=== PATIENT | male | born 1930 | race African-American/Black ===

== ENCOUNTER 2016-10-15 15:33 | Inpatient (IN) ==
[2016-10-15] MEDS ORDERED: FUROSEMIDE 100 MG/10 ML VIAL IV STA (15:49)
[2016-10-15] MEDS ORDERED: NITROGLYCERIN 2% OINT 1 INCH/GM PACK TOP STA (15:49)
[2016-10-15] MEDS ORDERED: ONDANSETRON 4 MG/2 ML VIAL IV STA (15:49)
[2016-10-15] MEDS ORDERED: MORPHINE 2 MG/1 ML SYRINGE IV STA (15:49)
[2016-10-15] MEDS ORDERED: ASPIRIN 325 MG TABLET PO STA (15:49)
[2016-10-15] MEDS ORDERED: methylPREDNISolone SOD SUC 125 MG/2 ML VIAL IV STA (15:49)
[2016-10-15] MEDS ORDERED: hydrALAZINE 20 MG/1 ML VIAL IV STA (15:49)
[2016-10-15] MEDS ORDERED: ALBUTEROL 2.5 MG/3 ML NEB RESP TX SCH (16:00)
[2016-10-15] MEDS ORDERED: ONDANSETRON 4 MG/2 ML VIAL ONE (16:01)
[2016-10-15] MEDS ORDERED: NITROGLYCERIN 2% OINT 1 INCH/GM PACK TOP ONE (16:01)
[2016-10-15] MEDS ORDERED: hydrALAZINE 20 MG/1 ML VIAL ONE ×2 (16:01→16:37)
[2016-10-15] MEDS ORDERED: FUROSEMIDE 40 MG/4 ML VIAL ONE (16:01)
[2016-10-15] MEDS ORDERED: MORPHINE 2 MG/1 ML SYRINGE ONE (16:02)
[2016-10-15] MEDS ORDERED: ASPIRIN 325 MG TABLET ONE (16:02)
[2016-10-15] MEDS ORDERED: methylPREDNISolone SOD SUC 125 MG/2 ML VIAL ONE (16:02)
[2016-10-15] MEDS ORDERED: FUROSEMIDE 20 MG/2 ML VIAL ONE (16:02)
[2016-10-15 16:09] LABS: Basophils % 0.6 % (0.0-0.8); Eosinophils # 0.1 10*3/uL (0.0-0.87); Eosinophils % 2.5 % (0.00-10.9); Hemoglobin 14.2 GM/DL (14.0-18.0); Immature Granulocytes % 0.2 %; Immature Granulocytes Absolute 0.01 #; Lymphocytes # 1.6 10*3/uL (1.4-4.0); Mean Corpuscular Hemoglobin 31 PG (27-34); Mean Corpuscular Volume 92.3 FL (87-102); Mean Platelet Volume 10.5 FL (9.6-12.0); Monocytes # 0.6 10*3/uL (0.11-0.8); Monocytes % 12.3 % (1.7-12.7); Neutrophils # 2.5 10*3/uL (1.4-7.4); Neutrophils % 51.4 % (38.7-73.9); Platelet Count 180 10*3/uL (130-400); Red Blood Count 4.66 10*6/uL (3.8-5.5); Red Cell Distribution Width 14.2 % (9.3-17.3); White Blood Count 4.9 10*3/uL (4.5-13.71)
--- NOTE | 2016-10-15 16:09 | XRay Report ---
Exam: XR chest 1V portable Date: 10/15/2016 3:49 PM Indication: Shortness of breath Comparison: 09/11/2016 Technical:AP portable Findings: Patchy interstitial infiltrates are present in the right base. Cardiomegaly is present. ASVD is present. External cardiac leads are present. The mediastinum is otherwise intact Impression: 1. Cardiomegaly 2. Interstitial edema and tiny effusions that suggest component of mild CHF. Pneumonic infiltrate cannot be totally excluded this is slightly asymmetric right greater than left PROCEDURE INTERPRETED AT [facility]PARTMENT OF RADIOLOG[facility] Final Report Signed by: Dr. Alfonzo Leblanc
--- NOTE | 2016-10-15 16:09 | Emergency Department Note ---
Yasmin Patricia Brittany, am scribing for, and in the presence of, Dakotah Lipscomb MD 15:58. Deisi Patricia Charles R, MD, personally performed the services described in this documentation, ascribed by Camilla Hoffman in my presence, and it is both accurate and complete 609 . Arrival - Arrival Chief Complaint: Shortness of Breath Stated Complaint: SOB Mode of Arrival: Stretcher Source: Patient - History of Present Illness HPI Narrative: This is an 86 y/o black male,who presents to the ED by EMS with c/o dyspnea which started 3 days ago. He states he had an AL 2 weeks ago. He denies any chest pain today but does report he had CP when he had the AL. He states he is unable to lay down due to orthopnea. Pt states after being placed on Bi-Pap machine in the ED his breathing has now gotten better. Pt has no other complains /pain in the ED at this time. Pt has a PMHx of seizures, HTN, cardiovascular problems, COPD, and asthma. Pt denies a surgical Hx. Pt denies a family medical Hx. Pt denies a social Hx. Onset (ago): day(s) (Started 3 days ago) Consistency: constant Severity: moderate Allergies/Adverse Reactions: Allergies Allergy/AdvReac Type Severity Reaction Status Date / Time No Known Allergies Allergy Verified 04/23/15 13:07 Home Medications: Home Medications Medication Instructions Recorded Confirmed Type Albuterol Sulfate [Ventolin HFA] 2 puff INH Q6HR 04/23/15 08/31/16 History Tiotropium Inhalation [Spiriva 18 mcg INH DAILY 04/23/15 08/31/16 History Handihaler] Aspirin EC Tab 81 mg PO DAILY #30 tablet 09/02/16 Rx Atorvastatin [Lipitor] 80 mg PO BEDTIME #30 tablet 09/02/16 Rx Carvedilol [Coreg] 6.25 mg PO BID #30 tablet 09/02/16 Rx Nitroglycerin Sl Tab [Nitrostat] 0.4 mg SL Q5M PRN #100 tablet 09/02/16 Rx Ticagrelor [Brilinta] 90 mg PO BID #60 tablet 09/02/16 Rx Review of System - Review of System Cardiovascular: Present: dyspnea on exertion, orthopnea. Absent: chest pain Medical,Surgical,& Family Hx - Medical History Cardio: History of: Hypertension (states takes two different BP meds but doesn' t know the name of the other o), AL, Cardiovascular Problems Neurology: History of: Seizures ("years ago") Respiratory: History of: Asthma, COPD (Smoker) No history of: Obstructive Sleep Apnea Gastrointestinal: History of: Gastrointestinal Cancer - Social History Smoking Status: Current every day smoker Frequency of Alcohol Use: Unknown Type of Drug Use: Unknown Exam Vital Signs: Vital Signs Temperature 97.2 F L 10/15/16 15:35 Pulse Rate 71 10/15/16 17:07 Respiratory Rate 30 H 10/15/16 17:07 Blood Pressure 213/127 10/15/16 15:35 O2 Sat by Pulse Oximetry 100 10/15/16 16:10 - General General appearance: alert, in distress (Mild Distress) - Head Head exam: Present: atraumatic, normocephalic, normal inspection - Eye Eye exam: Present: normal appearance, PERRL, EOMI - ENT ENT exam: Present: normal exam, normal oropharynx, mucous membranes moist - Neck Neck exam: Present: normal inspection, full ROM, trachea midline. Absent: tenderness - Chest Chest inspection: Present: symmetric chest wall rise, other ([place] chest) - Respiratory Respiratory exam: Present: accessory muscle use, rales (Bilateral ), wheezes ( Bilateral ), other (Decreased Breath sounds) - Cardiovascular Cardiovascular exam: Present: tachycardia - Abdominal Exam Abdominal exam: Present: soft. Absent: distention, tenderness, guarding, rebound, rigidity - Extremities Exam Extremities exam: Present: normal capillary refill, pedal edema (+1 pedal edema) - Back Exam Back exam: Present: normal inspection, full ROM. Absent: tenderness, muscle spasm, rashes - Neurological Exam Neurological exam: Present: alert, oriented X3, CN II-XII intact - Psychiatric Psychiatric exam: Present: normal affect, normal mood. Absent: agitated, anxious - Skin Skin exam: Present: warm, intact, normal color. Absent: diaphoresis Course - Reevaluation(s) Reevaluation #1: Patient has come down after using IV hydralazine IV nitroglycerin and Nitropaste and cardiac effusion. We made decision take the patient to the CT scanner check for PE based on his symptomatology. Patient also has external pacemaker pads on because of his episodic runs of bradycardia is also sinus rhythm there is no clear ST elevation is seen and patient continues to report no chest pain Time: 16:50 - Consultations Consultation #1: Spoke to Dr. Simon he told me to call Dr. Steen, the radius she's in come see patient patient has of EKG that was done that showed ST changes. 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 patient currently has no having any chest pain just shortness of breath Time: 16:21 Results - Labs CBC & BMP: 10/15/16 15:51 10/15/16 15:51 Critical Care Time Critical Care Time: Yes Total Critical Care Time: 90 Disposition Clinical Impression: Peripheral vascular disease, Coronary artery disease, Pulmonary disease, Congestive heart failure, respiratory distress, Arrhythmia, Malignant hypertension, Acute exacerbation of chronic obstructive airways disease, Sick sinus syndrome Case discussed with: patient, patient's family Disposition: Still a Patient Condition: Critical Time of Disposition: 17:14
[2016-10-15 16:19] LABS: ABG Base Excess -2.9 MMOL/L (-2.5-2.5); ABG Oxygen Saturation 98.5 % (95-100); ABG PCO2 38.1 MM HG (35-48); ABG PH 7.369 (7.35-7.45); ABG TCO2 18.9 MMOL/L (23-27)
[2016-10-15] MEDS ORDERED: niCARdipine 25 MG/10 ML VIAL IV ONE (16:20)
[2016-10-15 16:21] LABS: INR 1.2; PT Patient Result 12.3 SECS
--- NOTE | 2016-10-15 16:23 | EKG Report ---
Stationary ECG Study [facility] ER Test Date: 10/15/2016 4:22:18 PM Pat Name: SUSI MASCORRO Department: Room: 123 Gender: M Edge Brusher: JASON Caba : 1930 Requested by: Dakotah Sutton Order Number: [id number] Reading MD: CARMEN MARIN Intervals [place] Rate: 105 P: 999 [place]: 0 QRS: -68 QRSD: 117 T: 105 QT: 356 QTc: 417 Interpretive Statements ATRIAL FIBRILLATION WITH RAPID VENTRICULAR RESPONSE LEFT ANTERIOR FASCICULAR BLOCK MINIMAL VOLTAGE CRITERIA FOR LVH, CONSIDER NORMAL VARIANT ANTEROLATERAL MYOCARDIAL INFARCTION, PROBABLY RECENT ACUTE [place] Electronically Signed On 10-16-16 09:56:29 HOSPITALITY HOST by CARMEN MARIN [id number]
[2016-10-15 16:29] LABS: D-Dimer 28.3 MG/L FEU
[2016-10-15] MEDS ORDERED: NITROGLYCERIN DRIP 50 MG/250 ML BOTTLE IV ONE (16:33)
[2016-10-15 16:45] LABS: Albumin 3.6 G/DL (3.4-5.0); Calcium 8.9 MG/DL (8.5-10.1); Magnesium 1.9 MG/DL (1.8-2.4); Osmolality,Calculated 289.1 MOS/KG (273-304); Potassium 4.3 MMOL/L (3.5-5.1); Total Protein 7.9 G/DL (6.4-8.3)
[2016-10-15 16:46] LABS: Troponin I Only 0.125 NG/ML (0.00-0.045)
[2016-10-15] MEDS ORDERED: HEPARIN 5,000 UNIT/1 ML VIAL IV STA (17:11)
[2016-10-15] MEDS ORDERED: HEPARIN DRIP 25,000 UNITS/500 ML PREMIX IV ONE (17:12)
--- NOTE | 2016-10-15 17:25 | CT Report ---
Exam: CT chest PE study Date: 10/15/2016 4:49 PM Indication: Shortness of breath fever Comparison: Routine chest Technical: Images were obtained from the thoracic inlet through the lung bases with 80 cc of Omnipaque 350 with axial and coronal imaging available for review.3-D CTA MIP images were obtained coronally. Dose reduction was performed with decreasing kv and mA and automated exposure Findings: Thyroid gland trachea and esophagus are otherwise unremarkable. Mild cardiomegaly present. ASVD is present. The pulmonary outflow tract, left and right proximal pulmonary arteries, first-order, second-order and third order branches reveal no evidence of pulmonary thromboemboli. The lungs are demonstrated with bilateral pleural effusions and atelectatic change present. Mild groundglass type alveolar density suggesting a component of cardiac decompensation pulmonary edema right greater than left. The mediastinum and bony structures are intact. Liver spleen are unremarkable. Stomach is incompletely distended. Previous cholecystectomy suspected. Adrenal glands are intact. The kidneys reveal small calculus in the posterior left kidney measure approximately 2 mm. The right kidney is unremarkable. Impression: 1. No evidence of pulmonary thromboemboli. 2. Bilateral pleural effusions and alveolar edema is consistent with a component of mild pulmonary edema 3. Previous cholecystectomy suspected. 4. Left nephrolithiasis without obstruction with tiny stone present PROCEDURE INTERPRETED AT [facility] DEPARTMENT OF RADIOLOGY Final Report Signed by: Dr. Alfonzo Leblanc
[2016-10-15] MEDS ORDERED: HEPARIN DRIP 25,000 UNITS/500 ML PREMIX IV SCH (17:30)
[2016-10-15 17:36] LABS: Apearance,Urine CLEAR (Clear); Bacteria,Urine Occasional /HPF (Few); Bilirubin,Urine Negative (Negative); Blood, Urine Small mg/dL (Negative); Glucose,Urine (UA) 50 mg/dL (Negative); Ketones,Urine Negative (Negative); Mucus,Urine Occasional /LPF (Occasional); Nitrite,Urine Negative (Negative); Protein,Urine Negative; RBC,Urine 2 /HPF (0-4); Squamous Epithelial Cell,Urine Occasional /HPF (0-10); Urine Color Colorless (Yellow); Urine Specific Gravity 1.004 (1.001-1.035); Urine Urobilinogen < 2.0 EU/DL (0.2-1.0); WBC,Urine 1 /HPF (0-6)
[2016-10-15] MEDS ORDERED: ONDANSETRON 4 MG/2 ML VIAL IV PRN (17:55)
[2016-10-15] MEDS ORDERED: guaiFENesin/DM ER 600-30 MG TABLET PO PRN (17:55)
[2016-10-15] MEDS ORDERED: MAGNESIUM SULF RIDER 4 GM in PREMIX 1 EACH IV PRN (17:55)
[2016-10-15] MEDS ORDERED: ACETAMINOPHEN 325 MG TABLET PO PRN (17:55)
[2016-10-15] MEDS ORDERED: ZALEPLON 5 MG CAPSULE PO PRN (17:55)
[2016-10-15] MEDS ORDERED: BISACODYL 5 MG TABLET PO PRN (17:55)
[2016-10-15] MEDS ORDERED: POTASSIUM CHLORIDE RIDER 10 MEQ in PREMIX 1 EACH IV PRN (17:55)
[2016-10-15] MEDS ORDERED: DOCUSATE SODIUM 100 MG CAPSULE PO PRN (17:55)
[2016-10-15] MEDS ORDERED: MAGNESIUM SULF RIDER 2 GM in PREMIX 1 EACH IV PRN (17:55)
--- NOTE | 2016-10-15 18:01 | EKG Report ---
Stationary ECG Study [facility] ER Test Date: 10/15/2016 4:24:11 PM Pat Name: SUSI MASCORRO Department: Room: 123 Gender: M American History Teacher: JASON Caba : 1930 Requested by: Dakotah Sutton Order Number: [id number] Santana MD: CARMEN MARIN Intervals [place] Rate: 51 P: 91 KS: 213 QRS: -71 QRSD: 124 T: 102 QT: 389 QTc: 366 Interpretive Statements SINUS BRADYCARDIA WITH MARKED SINUS ARRHYTHMIA WITH PROLONGED [place] INTERVAL LEFT ANTERIOR FASCICULAR BLOCK ANTEROLATERAL MYOCARDIAL INFARCTION, PROBABLY RECENT ACUTE [place] Electronically Signed On 10-16-16 09:56:41 MERCHANDISING DIRECTOR by CARMEN MARIN [id number]
[2016-10-15] MEDS ORDERED: NITROGLYCERIN DRIP 50 MG/250 ML BOTTLE IV SCH (19:00)
[2016-10-15] MEDS ORDERED: PNEUMOCOCCAL VACCINE (13 VALENT) 0.5 ML SYRINGE IM ONE (19:09)
[2016-10-15] MEDS ORDERED: hydrALAZINE 20 MG/1 ML VIAL IV ONE (19:48)
[2016-10-15 19:55] LABS: Troponin I Only 0.148 NG/ML (0.00-0.045)
[2016-10-15] MEDS ORDERED: niCARdipine INJ 25 MG in SODIUM CHLORIDE 0.9% 240 ML IV SCH (20:00)
[2016-10-15] MEDS ORDERED: NITROGLYCERIN SL 0.4 MG TABLET SL PRN (20:46)
--- NOTE | 2016-10-15 20:46 | Cardiology History & Physical ---
Dejah Patricia April RN, am scribing for, and in the presence of, Layla Steen MD 20:40. Assessment and Plan - Time spent with patient Time spent with patient: Greater than 30 minutes (1) SOB (shortness of breath) Status: Acute Assessment and plan: He presented with extreme shortness of breath. He reportedly had mild hypoxia out of the hospital, but continued to be in extremis even with 100% saturations on nonrebreather. Exam was consistent congestive heart failure and he was externally hypotensive. D-dimer was very elevated but CT scan of the chest only mild heart failure, no significant pulmonary embolism. Cardiac biomarkers remain low, and his ECG does not show any acute STEMI. He is denying any chest pain. He does not have symptoms or leukocytosis consistent with an infectious process. Has had some tachybradycardia arrhythmias but these have improved now that he is off of the Cardene. If these continue, be a source of his systems. We'll treat him for hypertensive urgency, cycle his cardiac biomarkers, anticoagulate him overnight, and continue to manage him expectantly. Current Visit: Yes (2) Coronary artery disease Status: Chronic Current Visit: Yes (3) Peripheral vascular disease Status: Chronic Current Visit: Yes (4) Hypertension Status: Chronic Current Visit: Yes History of Present Illness Chief complaint: shortness of breath History of present illness: The patient was evaluated in the emergency room emergently, and greater than 1 hour was spent at the patient's bedside administering care and stabilizing the patient. Mr. Gibson is a 86 year old black male with a history of CAD, HTN, PVD, and pulmonary disease. Patient is in respiratory distress so the majority of the information is being obtained from his record. Apparently, he had never really seen a typewriter assembly and parts inspector until August of 2016 when he presented to the ED with a STEMI. He was taken emergently to the laboratory administrative director by Dr. Steen where his first diagonal artery was stented. Presented to ED in respiratory distress. He was also experiencing tachy arrhythmias as well as sinus roberto carlos around [address] Steen was called to the bedside. His D-dimer was noted to be 28, troponins are pending. He was taken to CT, no obvious PE noted, mild CHF. He has been given IV Lasix, he is diuresing and is breathing better. Still orthopneic. Was given 4000u Heparin IV bolus and infusion initiated. Patient has been stabilized and is being transferred to unit. Will continue to cycle his cardiac biomarkers, manage his blood pressure and heart rate, and continue further diuresis. Further history was obtained from the patient when he was stabilized, and also discussion with multiple family members. The patient has not been expressing any chest pain. He had a 3 day prodrome of progressive shortness of breath until he becomes short of breath today. He has not had fevers. They report good medication compliance. He doesn't check his blood pressure at home. He was not having lower extremity edema. Home Medications Medication Instructions Recorded Confirmed Type Albuterol Sulfate [Ventolin HFA] 2 puff INH Q6HR 04/23/15 10/15/16 History Tiotropium Inhalation [Spiriva 18 mcg INH DAILY 04/23/15 10/15/16 History Handihaler] Aspirin EC Tab 81 mg PO DAILY #30 tablet 09/02/16 10/15/16 Rx Nitroglycerin Sl Tab [Nitrostat] 0.4 mg SL Q5M PRN #100 tablet 09/02/16 Rx Ticagrelor [Brilinta] 90 mg PO BID #60 tablet 09/02/16 10/15/16 Rx Atorvastatin [Lipitor] 40 mg PO BEDTIME 10/15/16 10/15/16 History Carvedilol [Coreg] 12.5 mg PO BID 10/15/16 10/15/16 History Allergies Allergy/AdvReac Type Severity Reaction Status Date / Time No Known Allergies Allergy Verified 04/23/15 13:07 ROS unobtainable: other (unable to obtain due to his respiratory status) Medical,Surgical,& Family Hx - Medical History Cardio: History of: CAD, Hypertension (states takes two different BP meds but doesn't know the name of the other o), SD, PVD, Cardiovascular Problems Neurology: History of: Seizures ("years ago") Respiratory: History of: Asthma, COPD (Smoker) Gastrointestinal: History of: Gastrointestinal Cancer - Surgical History Cardiac Surgeries: Sugical HX of: Cardiac Catheterization (with stent to first diagonal august 2016) - Social History Smoking Status: Current every day smoker Frequency of Alcohol Use: Unknown Type of Drug Use: Unknown Cardiology Physical Exam - Constitutional Vitals: Vital Signs Temp Pulse Resp BP Pulse Ox 97.2 F L 87 20 213/127 99 01/25/17 15:35 10/15/16 15:35 10/15/16 15:35 10/15/16 15:35 10/15/16 15:35 Intake and Output 10/15/16 10/15/16 10/15/16 06:59 14:59 22:59 Other: Weight 162 lb Patient Weight 10/16/16 06:59 Weight 162 lb Result/EKG - Labs CBC & BMP: 10/15/16 15:51 10/15/16 15:51 Labs: Laboratory Results - last 24 hr 10/15/16 10/15/16 10/15/16 15:49 15:51 15:51 WBC 4.9 RBC 4.66 Hgb 14.2 Hct 43.0 MCV 92.3 MCH 31 MCHC 33.0 RDW 14.2 Plt Count 180 MPV 10.5 Neut % (Auto) 51.4 Lymph % (Auto) 33.0 Eagle % (Auto) 12.3 Eos % (Auto) 2.5 Baso % (Auto) 0.6 Neut # (Auto) 2.5 Lymph # (Auto) 1.6 Eagle # (Auto) 0.6 Eos # (Auto) 0.1 Baso # (Auto) 0.0 Immature Gran % 0.2 Nucleated RBC % 0.0 Immature Gran # 0.01 Nucleated RBCs # 0.00 INR 1.2 PT Patient/Control Mix 12.3 D-Dimer, Quantitative 28.3 ABG pH 7.369 ABG pCO2 38.1 ABG pO2 126.0 H ABG HCO3 22.0 ABG Total CO2 18.9 L ABG O2 Saturation 98.5 ABG Base Excess -2.9 L Sodium Potassium Chloride Carbon Dioxide Anion Gap BUN Creatinine GFR Calculation BUN/Creatinine Ratio Glucose Calculated Osmolality Calcium Magnesium Total Bilirubin AST ALT Alkaline Phosphatase Troponin I B-Natriuretic Peptide Total Protein Albumin Globulin Albumin/Globulin Ratio 10/15/16 10/15/16 15:51 15:51 WBC RBC Hgb Hct MCV MCH MCHC RDW Plt Count MPV Neut % (Auto) Lymph % (Auto) Eagle % (Auto) Eos % (Auto) Baso % (Auto) Neut # (Auto) Lymph # (Auto) Eagle # (Auto) Eos # (Auto) Baso # (Auto) Immature Gran % Nucleated RBC % Immature Gran # Nucleated RBCs # INR PT Patient/Control Mix D-Dimer, Quantitative ABG pH ABG pCO2 ABG pO2 ABG HCO3 ABG Total CO2 ABG O2 Saturation ABG Base Excess Sodium 142 Potassium 4.3 Chloride 109 H Carbon Dioxide 20 L Anion Gap 17.3 H BUN 20 H Creatinine 1.60 H GFR Calculation 48 BUN/Creatinine Ratio 12.00 Glucose 177 H Calculated Osmolality 289.1 Calcium 8.9 Magnesium 1.9 Total Bilirubin 1.00 AST 29 ALT 32 Alkaline Phosphatase 117 Troponin I 0.125 H B-Natriuretic Peptide 2105 H Total Protein 7.9 Albumin 3.6 Globulin 4.3 H Albumin/Globulin Ratio 0.8 L Quality Measures - Stroke Onset of Symptoms Date: 10/12/16 Enio Patricia Jennifer, MD, personally performed the services described in this documentation, ascribed by Анна Pond RN in my presence, and it is both accurate and complete 046 .
[2016-10-15] MEDS ORDERED: FUROSEMIDE 40 MG/4 ML VIAL IV ONE (20:48)
[2016-10-15] MEDS ORDERED: ETOMIDATE 20 MG/10 ML VIAL IV ONE (21:12)
[2016-10-15] MEDS ORDERED: SUCCINYLCHOLINE 200 MG/10 ML VIAL ONE (21:12)
--- NOTE | 2016-10-15 21:55 | ECHO Report ---
Neftali Gibson 10/15/2016 Exam Date: 17:20 Referring Physician: Diana Morales Technologist: FATOUMATA Age: 86 Ht (in): Wt (lb): MExam Location: [facility] Gender: Echo [id number]: Shortness of breath, Suspected PEIndications: BP: / HR: SinusRhythm: PoorTechnical Quality: IMPRESSIONS Normal LV systolic function without regional wall motion abnormality, ejection fraction 55%. Grade 1/4 diastolic dysfunction (impaired relaxation). Mild concentric left ventricular hypertrophy. Mild biatrial enlargement. Mild mitral and tricuspid regurgitation. Pulmonary hypertension with pulmonary pressure estimated at 52 mmHg. Aortic sclerosis without stenosis. MEASUREMENTS (Male / Female) Normal Values 2D ECHO LV Diastolic Diameter PLAX 4.8 cm 4.2 - 5.9 / 3.9 - 5.3 cm LV Systolic Diameter PLAX 3.2 cm LV Fractional Shortening PLAX 33.7 % IVS Diastolic Thickness 1.2 cm 0.6 - 1.0 / 0.6 - 0.9 cm LVPW Diastolic Thickness 1.2 cm 0.6 - 1.0 / 0.6 - 0.9 cm RV Internal Dim ED PLAX 2.3 cm Aortic Root Diameter 2.9 cm LA Systolic Diameter LX 4.7 cm 3.0 - 4.0 / 2.7 - 3.8 cm DOPPLER TR Peak Velocity 324.0 cm/s TR Peak Gradient 42.0 mmHg FINDINGS Left Ventricle Normal left ventricular cavity size. Mild left ventricular hypertrophy. Left ventricular ejection fraction is estimated at 55 %. Right Ventricle The right ventricle is normal in size and function. Right Atrium The right atrium is mildly enlarged. Left Atrium Mild atrial enlargement in apical view (elongated LA). Mitral Valve Thickened mitral valve. Mild mitral valve regurgitation. Aortic Valve Aortic valve sclerosis without stenosis or regurgitation. Tricuspid Valve Morphologically normal tricuspid valve. Trace to mild tricuspid valve regurgitation. Tricuspid regurgitation velocities suggest a PAP of 52 mmHg. Pulmonic Valve Morphologically normal pulmonic valve without significant stenosis. There is no pulmonic regurgitation. Pericardium Normal pericardium without effusion. Aorta Normal ascending aorta dimension. Layla Steen MD (Electronically Signed) 15 October 2016 Final Date: 21:54
[2016-10-15] MEDS: ATORVASTATIN 40 MG TABLET PO SCH (22:19)
[2016-10-15] MEDS: TICAGRELOR 90 MG TABLET PO SCH (22:19)
[2016-10-15] MEDS: ACETYLCYSTEINE 600 MG CAPSULE PO SCH (22:19)
[2016-10-15] MEDS: hydrALAZINE 25 MG TABLET PO SCH (22:19)
[2016-10-16] MEDS: ALBUTEROL 2.5 MG/3 ML NEB RESP TX SCH ×2 (02:23→07:10)
[2016-10-16 05:20] LABS: Hematocrit 37.9 VOL% (42.0-52.0); Hemoglobin 12.8 GM/DL (14.0-18.0); Immature Granulocytes % 0.4 %; Immature Granulocytes Absolute 0.02 #; Lymphocytes # 0.5 10*3/uL (1.4-4.0); Mean Corpuscular HGB Conc 33.8 GM/DL (32-36); Mean Corpuscular Hemoglobin 30 PG (27-34); Mean Corpuscular Volume 88.3 FL (87-102); Mean Platelet Volume 10.3 FL (9.6-12.0); Monocytes # 0.1 10*3/uL (0.11-0.8); Monocytes % 1.6 % (1.7-12.7); Platelet Count 192 10*3/uL (130-400); Red Blood Count 4.29 10*6/uL (3.8-5.5); Red Cell Distribution Width 13.9 % (9.3-17.3); White Blood Count 5.6 10*3/uL (4.5-13.71)
--- NOTE | 2016-10-16 05:53 | EKG Report ---
Stationary ECG Study [facility] ER Test Date: 10/15/2016 5:15:25 PM Pat Name: SUSI MASCORRO Department: Room: 123 Gender: M Drafter Chief Design: : 1930 Requested by: Dakotah Sutton Order Number: [id number] Santana MD: CARMEN MARIN Intervals [place] Rate: 90 P: 999 [place]: 0 QRS: -75 QRSD: 116 T: 104 QT: 393 QTc: 441 Interpretive Statements ATRIAL FIBRILLATION INCOMPLETE RIGHT BUNDLE BRANCH BLOCK LEFT ANTERIOR FASCICULAR BLOCK ANTEROLATERAL MYOCARDIAL INFARCTION, PROBABLY RECENT ACUTE [place] Electronically Signed On 10-16-16 09:56:58 IMPROVEMENT COORDINATOR by CARMEN MARIN [id number]
[2016-10-16 06:01] LABS: Albumin 3.3 G/DL (3.4-5.0); Bilirubin,Total 1.5 MG/DL (0.2-1.0); Calcium 8.9 MG/DL (8.5-10.1); Osmolality,Calculated 290.1 MOS/KG (273-304); Risk Ratio 2.32; Thyroid Stimulating Hormone 0.749 uIU/ml (0.358-3.74); Total Protein 6.7 G/DL (6.4-8.3); VLDL CHOLESTEROL 7.6 MG/DL
[2016-10-16 06:05] LABS: Troponin I Only 0.185 NG/ML (0.00-0.045)
[2016-10-16] MEDS: IPRATROPIUM 500 MCG/2.5 ML NEB RESP TX SCH ×4 (07:10→19:09)
--- NOTE | 2016-10-16 07:46 | XRay Report ---
History short of breath Comparison 10/15/2016 The heart and vessels remain enlarged. There is slight improvement of prior vascular congestion and diffuse pulmonary edema. Mild interstitial edema remains without more focal consolidation Impression: Mild improvement with mild residual interstitial edema PROCEDURE INTERPRETED AT [facility] DEPARTMENT OF RADIOLOGY Final Report Signed by: Dr. Desiree Singh
[2016-10-16] MEDS: PANTOPRAZOLE 40 MG TABLET PO SCH (09:10)
[2016-10-16] MEDS: ACETYLCYSTEINE 600 MG CAPSULE PO SCH ×2 (09:10→20:33)
[2016-10-16] MEDS: TICAGRELOR 90 MG TABLET PO SCH ×2 (09:10→20:29)
[2016-10-16] MEDS: ASPIRIN EC 81 MG TABLET PO SCH (09:10)
[2016-10-16] MEDS: hydrALAZINE 25 MG TABLET PO SCH ×4 (09:10→20:29)
[2016-10-16] MEDS: FUROSEMIDE 40 MG/4 ML VIAL IV SCH (09:11)
--- NOTE | 2016-10-16 10:22 | EKG Report ---
Stationary ECG Study [facility] Test Date: 10/16/2016 10:21:41 AM Pat Name: SUSI MASCORRO Department: Room: 123 Gender: M Aerospace Quality Engineer: CAREY : 1930 Requested by: Leonor Noble Order Number: [id number] Reading MD: EFE ALNGLEY Intervals [place] Rate: 84 P: 999 [place]: 0 QRS: -76 QRSD: 118 T: 121 QT: 396 QTc: 437 Interpretive Statements ATRIAL FIBRILLATION INCOMPLETE RIGHT BUNDLE BRANCH BLOCK LEFT ANTERIOR FASCICULAR BLOCK ANTEROLATERAL MYOCARDIAL INFARCTION, PROBABLY RECENT ACUTE [place] Electronically Signed On 10-16-16 12:11:49 PHONE TRIAGE SPECIALIST by EFE LANGLEY [id number]
--- NOTE | 2016-10-16 15:12 | EKG Report ---
Stationary ECG Study [facility] ER Test Date: 10/15/2016 3:39:40 PM Pat Name: SUSI MASCORRO Department: Room: 123 Gender: M Sample Book Maker: : 1930 Requested by: Dakotah Sutton Order Number: [id number] Santana MD: CARMEN MARIN Intervals [place] Rate: 92 P: 44 KS: 127 QRS: -69 QRSD: 121 T: 102 QT: 355 QTc: 404 Interpretive Statements SINUS RHYTHM WITH OCCASIONAL SUPRAVENTRICULAR PREMATURE COMPLEXES LEFT ANTERIOR FASCICULAR BLOCK ANTEROLATERAL MYOCARDIAL INFARCTION, PROBABLY RECENT ACUTE [place] Electronically Signed On 10-16-16 09:55:38 CONTINUOUS PROCESS TANNER ROTARY DRUM by CARMEN MARIN [id number]
[2016-10-16] MEDS: ATORVASTATIN 40 MG TABLET PO SCH (20:29)
[2016-10-17] MEDS: IPRATROPIUM 500 MCG/2.5 ML NEB RESP TX SCH ×4 (07:27→21:38)
--- NOTE | 2016-10-17 10:10 | Physician Query Form ---
CLICK EDIT DOCUMENT TO SELECT QUERY ANSWER --> OK --> SIGN Aida Ahuja RN Clinical Hotel Controller W) [phone] (f) [phone] [email or web address] PROVIDERS: Make your selection(s) from the choices in EACH section by typing an "x" and enter comments in the comment section. Please use your independent medical judgment in providing your response. This request does not imply that any particular answer is desired or expected. CLINICAL INDICATORS: (Providers should not edit this section) Based on documentation of "CHF", HVN=[id number], Echo showed EF of 55%, treated with IV Lasix. Please provide further specificity regarding CHF. ACUITY: ( x) Acute ( ) Chronic ( ) Acute on Chronic ( ) Clinicallly unable to determine TYPE: ( ) Systolic ( x) Diastolic ( ) Combined Systolic/Diastolic ( ) Other, please specify: ( ) Clinically unable to determine ( ) The patient does NOT have CHF COMMENTS: Use of terms such as suspected, likely, or probable (associated with a specific diagnosis that is being evaluated, monitored, or treated as if it exists) are acceptable and can be restated in the discharge summary if not ruled out. [facility]
--- NOTE | 2016-10-17 10:11 | Physician Query Form ---
CLICK EDIT DOCUMENT TO SELECT QUERY ANSWER --> OK --> SIGN Aida Ahuja RN Clinical Mill Recorder W) [phone] (f) [phone] [email or web address] PROVIDERS: Make your selection(s) from the choices in EACH section by typing an "x" and enter comments in the comment section. Please use your independent medical judgment in providing your response. This request does not imply that any particular answer is desired or expected. CLINICAL INDICATORS: (Providers should not edit this section) Based on documentation of "respiratory distress, continued to be in extremis even with 100% saturations on nonrebreather" If possible, please further clarify the type and acuity of respiratory diagnosis : ACUITY: (x ) Acute ( ) Chronic ( ) Acute on Chronic TYPE: ( ) Respiratory failure with hypoxia ( ) Respiratory failure with hypercapnia ( ) Respiratory Arrest ( ) Postprocedural/postoperative respiratory failure ( ) Respiratory Insufficiency ( ) ARDS (Adult/Acute Respiratory Distress Syndrome) ( ) Other, please specify: ( x) Clinically unable to determine Recognized criteria for respiratory failure PH <7.35 or >7.45 PO2 <60 PCO2 >50 RR >24 O2 Sat <90% on RA or <95% on O2 Use of accessory muscles Unable to speak in full sentences Intubation is not required COMMENTS: Use of terms such as suspected, likely, or probable (associated with a specific diagnosis that is being evaluated, monitored, or treated as if it exists) are acceptable and can be restated in the discharge summary if not ruled out. MTDD
--- NOTE | 2016-10-17 10:53 | General Surgery Consult Note ---
<Gabrielle Carrizales - Last Filed: 10/17/16 10:48> Assessment and Plan - Time spent with patient Time spent with patient: Less than 30 minutes (1) Cyst of skin and subcutaneous tissue Status: Acute Assessment and plan: 86AAM admitted w sob due to chf exacerbation. dr harris has been consulted for a cyst on his left hip that developed p shot he rec'd on his last hospitalization. pt does have a movable mass w thick discharge that does not look infected. if it is bothering pt, dr harris can numb area up and do stab incision to evacuate the material easier. if pt chooses, it can be left alone as well. will discuss this w dr harris. he will see and examine pt today. Current Visit: Yes History of Present Illness Chief complaint: cyst on left hip History of present illness: 86AAM w history of CAD, HTN admitted w severe SOB. pt had STEMI in august and had heart cath by dr stanford at that time. pt states he started getting SOB about 3 days ago until coming into ED. he was found to have CHF and is diuresing well. he is resting comfortably in bed. pt states that when he was in hospital "a while ago" he got a shot in his left hip. since then he has had a cyst-like area on his hip that will get aggravated intermittently. pt states he squeezes it and then it gets better. Sophia the wound nurse was consulted to see and we saw in conjunction. upon exam, pt has a 2x1cm cyst-like area on his left hip that is movable. there is some thick white material that can be expressed from the area. it does not look infected but it does bother pt sometimes. dr harris has been consulted to evaluate. Home Medications Medication Instructions Recorded Confirmed Type Albuterol Sulfate [Ventolin HFA] 2 puff INH Q6HR 04/23/15 10/15/16 History Tiotropium Inhalation [Spiriva 18 mcg INH DAILY 04/23/15 10/15/16 History Handihaler] Aspirin EC Tab 81 mg PO DAILY #30 tablet 09/02/16 10/15/16 Rx Nitroglycerin Sl Tab [Nitrostat] 0.4 mg SL Q5M PRN #100 tablet 09/02/16 Rx Ticagrelor [Brilinta] 90 mg PO BID #60 tablet 09/02/16 10/15/16 Rx Atorvastatin [Lipitor] 40 mg PO BEDTIME 10/15/16 10/15/16 History Carvedilol [Coreg] 12.5 mg PO BID 10/15/16 10/15/16 History Allergies Allergy/AdvReac Type Severity Reaction Status Date / Time No Known Allergies Allergy Verified 04/23/15 13:07 Medical,Surgical,& Family Hx - Medical History Cardio: History of: CAD, Hypertension (states takes two different BP meds but doesn't know the name of the other o), [place], PVD, Cardiovascular Problems Neurology: History of: Seizures ("years ago") HEENT: History of: HEENT Problems (cataract surgery bilaterally) Rheumatology: History of;: Rheumatoid Arthritis Respiratory: History of: Asthma, COPD (Smoker) No history of: Obstructive Sleep Apnea Genitourinary: History of: Bladder Problem (frequency) Gastrointestinal: History of: Gastrointestinal Cancer Other: History of: Cancer (gastrointestinal) - Surgical History Cardiac Surgeries: Sugical HX of: Cardiac Catheterization (with stent to first diagonal august 2016) Abdominal Surgeries: Surgical HX of: Abdominal Surgery (part of colon removed) - Family History Family History: Reports;: Family Cancer (daughter, eye.), Family Heart Disease ( father, brother,), Family Hypertension (mother, father, brother, sister) - Social History Smoking Status: Current every day smoker Frequency of Alcohol Use: Unknown Type of Drug Use: Unknown - Constitutional Constitutional: Present: as per HPI Exam - Constitutional Vitals: Period Temp Pulse Resp BP Sys/Lui Pulse Ox Last 24 Hr 96.7 F-99.6 F 70-90 12-24 97-156/54-88 95-100 86AAM, NAD, alert and oriented chest clear cv irreg irreg abd soft, nt ext no edema left hip w 2x1cm cyst-like mass in subq tissue that is movable. thick white material can be expressed. Quality Measures - VTE Contraindication to Pharmacological VTE Prophylaxis: Already on Theraputic Agent , No Prophylaxis Needed - Stroke Onset of Symptoms Date: 10/12/16 Results - Labs CBC & BMP: 10/16/16 04:52 10/16/16 04:52 Lab Results: I have reviewed the past 24 hour labs Specialty Discharge - Follow Up or Referrals Follow up with: Teodoro Harris MD [Physician] - 2 Weeks <Teodoro Harris - Last Filed: 10/17/16 18:56> Assessment and Plan (1) Cyst of skin and subcutaneous tissue Status: Acute Assessment and plan: I have seen and examined this patient. He appears to have a epidermal inclusion cyst that is not acutely infected over the left buttock region. The patient does not want to have this addressed right now and I'll see him back in clinic once he has recovered from his illnesses that have landed him in the hospital. Current Visit: Yes History of Present Illness History of present illness: Mr. Gibson is a 86 year old male Exam - Constitutional Vitals: Period Temp Pulse Resp BP Sys/Lui Pulse Ox Last 24 Hr 97.7 F-99.6 F 65-90 15-22 123-154/65-85 95-100 Results - Labs CBC & BMP: 10/16/16 04:52 10/16/16 04:52
[2016-10-17] MEDS: hydrALAZINE 25 MG TABLET PO SCH ×4 (12:20→21:13)
[2016-10-17] MEDS: FUROSEMIDE 40 MG/4 ML VIAL IV SCH (12:21)
[2016-10-17] MEDS: ASPIRIN EC 81 MG TABLET PO SCH (12:21)
[2016-10-17] MEDS: TICAGRELOR 90 MG TABLET PO SCH ×2 (12:21→21:13)
[2016-10-17] MEDS: ACETYLCYSTEINE 600 MG CAPSULE PO SCH (12:27)
[2016-10-17] MEDS: PANTOPRAZOLE 40 MG TABLET PO SCH (12:27)
--- NOTE | 2016-10-17 20:22 | Cardiology Progress Note ---
Dejah Patricia April RN, am scribing for, and in the presence of, Layla Steen MD 20:21. Assessment and Plan (1) SOB (shortness of breath) Status: Acute Assessment and plan: Clinically this is much improved. At this point it seems this was likely due to flash pulmonary edema from his uncontrolled hypertension. This is improved but he is still somewhat symptomatic so we will continue to monitor him for an additional day. Current Visit: Yes (2) Coronary artery disease Status: Chronic Current Visit: Yes (3) Peripheral vascular disease Status: Chronic Current Visit: Yes (4) Hypertension Status: Chronic Current Visit: Yes Cardiology - PN: Subj Interval history: Clinically he is much improved from admission. Resting in bed in no acute distress, oxygen in use via NBP. O2 Sat 98%. He denies chest pain, reports his breathing is greatly improved. Chest X-ray shows mild improvement. He is diuresing well. He is in Afib with heart rates in the 90's. Currently with Heparin and Nitroglycerin infusing. TECHO done yesterday with EF 55%. Exam (Progress Note) - Constitutional Vitals: Period Temp Pulse Resp BP Sys/Lui Pulse Ox Last 24 Hr 96.0 F-97.4 F 77-113 14-32 109-185/63-118 94-100 General appearance: normal weight, no acute distress - Head Head exam: Present: normal inspection. Absent: abrasion, hematoma - Eye Eye exam: Absent: periorbital swelling, laceration to eyelids Pupils: Present: MILO. Absent: dilated, fixed - ENT ENT exam: Present: normal exam, normal external ear exam - Neck Neck exam: Present: normal inspection. Absent: tenderness - Respiratory Respiratory exam: Present: clear to auscultation bilaterally. Absent: accessory muscle use, chest wall tenderness, rhonchi, wheezes - Cardiovascular Cardiovascular exam: Present: irregular rhythm. Absent: bradycardia, JVD - GI/Abdominal GI/Abdominal exam: Present: normal bowel sounds, soft. Absent: distended, mass , tenderness - Extremities Exam Extremities exam: Present: edema (trace to ble). Absent: calf tenderness - Back Exam Back exam: Absent: muscle spasm, vertebral tenderness - Neurological Exam Neurological exam: Present: alert, oriented X3 - Psychiatric Psychiatric exam: Present: normal affect, normal mood - Skin Skin exam: Present: warm, dry. Absent: abrasion, rash Result/EKG - Labs CBC & BMP: 10/16/16 04:52 10/16/16 04:52 Lab Results: I have reviewed the past 24 hour labs Labs: Laboratory Results - last 24 hr 10/15/16 10/15/16 10/16/16 19:16 21:53 04:52 WBC RBC Hgb Hct MCV MCH MCHC RDW Plt Count MPV Neut % (Auto) Lymph % (Auto) [place] % (Auto) Eos % (Auto) Baso % (Auto) Neut # (Auto) Lymph # (Auto) [place] # (Auto) Eos # (Auto) Baso # (Auto) Immature Gran % Nucleated RBC % Immature Gran # Nucleated RBCs # Circ Anticoag PTT 145.2 H* Sodium Potassium Chloride Carbon Dioxide Anion Gap BUN Creatinine GFR Calculation BUN/Creatinine Ratio Glucose Calculated Osmolality Calcium Total Bilirubin AST ALT Alkaline Phosphatase Total Creatine Kinase 95 108 CK-MB (CK-2) 3.5 3.5 Troponin I 0.148 H 0.185 H D B-Natriuretic Peptide Total Protein Albumin Globulin Albumin/Globulin Ratio Triglycerides Cholesterol LDL Cholesterol VLDL Cholesterol HDL Cholesterol Heart Disease Risk Ratio TSH 3rd Generation 10/16/16 10/16/16 10/16/16 04:52 04:52 04:52 WBC 5.6 RBC 4.29 Hgb 12.8 L Hct 37.9 L MCV 88.3 MCH 30 MCHC 33.8 RDW 13.9 Plt Count 192 MPV 10.3 Neut % (Auto) 89.0 H Lymph % (Auto) 9.0 L [place] % (Auto) 1.6 L Eos % (Auto) 0.0 Baso % (Auto) 0.0 Neut # (Auto) 5.0 Lymph # (Auto) 0.5 L [place] # (Auto) 0.1 L Eos # (Auto) 0.0 Baso # (Auto) 0.0 Immature Gran % 0.4 Nucleated RBC % 0.0 Immature Gran # 0.02 Nucleated RBCs # 0.00 Circ Anticoag PTT Sodium 142 Potassium 4.0 Chloride 105 Carbon Dioxide 23 Anion Gap 18.0 H BUN 24 H Creatinine 1.90 H GFR Calculation 38 BUN/Creatinine Ratio 12.00 Glucose 164 H Calculated Osmolality 290.1 Calcium 8.9 Total Bilirubin 1.50 H AST 19 ALT 24 Alkaline Phosphatase 95 Total Creatine Kinase CK-MB (CK-2) Troponin I B-Natriuretic Peptide 2153 H Total Protein 6.7 Albumin 3.3 L Globulin 3.4 Albumin/Globulin Ratio 0.9 L Triglycerides 38 Cholesterol 132 LDL Cholesterol 69.0 VLDL Cholesterol 7.6 HDL Cholesterol 57 Heart Disease Risk Ratio 2.32 TSH 3rd Generation 0.749 10/16/16 04:52 WBC RBC Hgb Hct MCV MCH MCHC RDW Plt Count MPV Neut % (Auto) Lymph % (Auto) [place] % (Auto) Eos % (Auto) Baso % (Auto) Neut # (Auto) Lymph # (Auto) [place] # (Auto) Eos # (Auto) Baso # (Auto) Immature Gran % Nucleated RBC % Immature Gran # Nucleated RBCs # Circ Anticoag PTT 33.1 D Sodium Potassium Chloride Carbon Dioxide Anion Gap BUN Creatinine GFR Calculation BUN/Creatinine Ratio Glucose Calculated Osmolality Calcium Total Bilirubin AST ALT Alkaline Phosphatase Total Creatine Kinase CK-MB (CK-2) Troponin I B-Natriuretic Peptide Total Protein Albumin Globulin Albumin/Globulin Ratio Triglycerides Cholesterol LDL Cholesterol VLDL Cholesterol HDL Cholesterol Heart Disease Risk Ratio TSH 3rd Generation - EKG EKG results: interpreted by me EKG shows: atrial fibrillation Quality Measures - VTE Contraindication to Pharmacological VTE Prophylaxis: Already on Theraputic Agent , No Prophylaxis Needed - Stroke Onset of Symptoms Date: 10/12/16 Specialty Discharge - Follow Up or Referrals Follow up with: Teodoro Harris MD [Physician] - 2 Weeks Enio Patricia Jennifer, MD, personally performed the services described in this documentation, ascribed by Анна Pond RN in my presence, and it is both accurate and complete .
--- NOTE | 2016-10-17 20:25 | Cardiology Progress Note ---
Dejah Patricia April RN, am scribing for, and in the presence of, Layla Steen MD 20:25. Assessment and Plan (1) SOB (shortness of breath) Status: Acute Assessment and plan: Clinically this is much improved. At this point it seems this was likely due to flash pulmonary edema from his uncontrolled hypertension. This is improved but he is still somewhat symptomatic so we will continue to monitor him for an additional day. Current Visit: Yes (2) Coronary artery disease Status: Chronic Current Visit: Yes (3) Peripheral vascular disease Status: Chronic Current Visit: Yes (4) Hypertension Status: Chronic Current Visit: Yes Cardiology - PN: Subj Interval history: Clinically is improved. He still has some shortness of breath. He had some bradycardia arrhythmias on his presentation which seemed worse while on the Cardizem infusion and these have not recurred. He has had some irregular telemetry events, but overall seems to be sinus rhythm with frequent PACs. We are going to restart his beta susie. Resting in bed in no acute distress, oxygen in use via NBP. He denies any chest pain or palpitations, reports his breathing is good. He is in AFib with heart rates in the 70's. Exam (Progress Note) - Constitutional Vitals: Period Temp Pulse Resp BP Sys/Lui Pulse Ox Last 24 Hr 96.7 F-99.6 F 65-90 14-24 112-154/61-88 95-100 General appearance: normal weight, no acute distress - Head Head exam: Absent: abrasion, hematoma - Eye Eye exam: Absent: periorbital swelling, laceration to eyelids - ENT ENT exam: Present: normal exam, normal external ear exam - Neck Neck exam: Present: normal inspection. Absent: tenderness - Respiratory Respiratory exam: Present: clear to auscultation bilaterally, other (oxygen via NBP). Absent: accessory muscle use, chest wall tenderness - Cardiovascular Cardiovascular exam: Present: irregular rhythm. Absent: systolic murmur - GI/Abdominal GI/Abdominal exam: Present: normal bowel sounds, soft. Absent: distended, mass , tenderness - Extremities Exam Extremities exam: Absent: calf tenderness, edema - Back Exam Back exam: Absent: muscle spasm, vertebral tenderness - Neurological Exam Neurological exam: Present: alert, oriented X3 - Psychiatric Psychiatric exam: Present: normal affect, normal mood - Skin Skin exam: Present: warm, dry. Absent: abrasion, rash Result/EKG - Labs CBC & BMP: 10/16/16 04:52 10/16/16 04:52 Lab Results: I have reviewed the past 24 hour labs - EKG EKG results: interpreted by me EKG shows: atrial fibrillation Quality Measures - VTE Contraindication to Pharmacological VTE Prophylaxis: Already on Theraputic Agent , No Prophylaxis Needed - Stroke Onset of Symptoms Date: 10/12/16 Specialty Discharge - Follow Up or Referrals Follow up with: Teodoro Harris MD [Physician] - 2 Weeks I, Layla Steen MD, personally performed the services described in this documentation, ascribed by Анна Pond RN in my presence, and it is both accurate and complete 025 .
[2016-10-17] MEDS: ATORVASTATIN 40 MG TABLET PO SCH (21:13)
[2016-10-17] MEDS: CARVEDILOL 6.25 MG TABLET PO SCH (21:13)
[2016-10-18 06:12] LABS: Basophils % 0.2 % (0.0-0.8); Eosinophils # 0.1 10*3/uL (0.0-0.87); Eosinophils % 1.7 % (0.00-10.9); Hematocrit 38.6 VOL% (42.0-52.0); Hemoglobin 12.6 GM/DL (14.0-18.0); Immature Granulocytes % 0.2 %; Immature Granulocytes Absolute 0.01 #; Lymphocytes # 1.6 10*3/uL (1.4-4.0); Mean Corpuscular HGB Conc 32.6 GM/DL (32-36); Mean Corpuscular Hemoglobin 29 PG (27-34); Mean Corpuscular Volume 89.6 FL (87-102); Mean Platelet Volume 9.9 FL (9.6-12.0); Monocytes # 0.7 10*3/uL (0.11-0.8); Monocytes % 11.9 % (1.7-12.7); Neutrophils # 3.1 10*3/uL (1.4-7.4); Platelet Count 194 10*3/uL (130-400); Red Blood Count 4.31 10*6/uL (3.8-5.5); Red Cell Distribution Width 14.3 % (9.3-17.3); White Blood Count 5.4 10*3/uL (4.5-13.71)
[2016-10-18 06:47] LABS: Calcium 8.5 MG/DL (8.5-10.1)
[2016-10-18] MEDS: IPRATROPIUM 500 MCG/2.5 ML NEB RESP TX SCH ×4 (07:52→20:28)
[2016-10-18] MEDS: ASPIRIN EC 81 MG TABLET PO SCH (09:57)
[2016-10-18] MEDS: hydrALAZINE 25 MG TABLET PO SCH ×4 (09:58→21:12)
[2016-10-18] MEDS: TICAGRELOR 90 MG TABLET PO SCH ×2 (09:58→21:12)
[2016-10-18] MEDS: FUROSEMIDE 40 MG/4 ML VIAL IV SCH (09:58)
[2016-10-18] MEDS: CARVEDILOL 6.25 MG TABLET PO SCH ×2 (09:58→21:12)
[2016-10-18] MEDS: PANTOPRAZOLE 40 MG TABLET PO SCH (09:58)
--- NOTE | 2016-10-18 16:59 | Cardiology Progress Note ---
Assessment and Plan (1) SOB (shortness of breath) Status: Acute Assessment and plan: Clinically this is much improved. At this point it seems this was likely due to flash pulmonary edema from his uncontrolled hypertension. This is improved but he is still somewhat symptomatic so we will continue to monitor him for an additional day. I'm going to repeat his chest x-ray, his chest sounds a lot more coarse than it did yesterday. Current Visit: Yes (2) Coronary artery disease Status: Chronic Current Visit: Yes (3) Peripheral vascular disease Status: Chronic Current Visit: Yes (4) Hypertension Status: Chronic Current Visit: Yes Cardiology - PN: Subj Interval history: Evening was uneventful. He is very weak generally, but overall feels that his breathing is improved. He denies chest pain. He has not had any bradycardia arrhythmias during this admission since the emergency room. Exam (Progress Note) - Constitutional Vitals: Period Temp Pulse Resp BP Sys/Lui Pulse Ox Last 24 Hr 98.0 F-99 F 60-85 17-20 133-172/75-97 97-100 Exam: General appearance: normal weight, no acute distress - Head Head exam: Present: normal inspection, normocephalic, atraumatic. Absent: hematoma, laceration - Eye Eye exam: Present: EOMI. Absent: conjunctival injection, nystagmus, periorbital swelling, scleral icterus, laceration to eyelids Pupils: Present: PERRL. Absent: constricted, dilated, fixed, irregular, unequal - ENT ENT exam: Present: normal exam, normal external ear exam - Neck Neck exam: Present: normal inspection. Absent: lymphadenopathy, meningismus, tenderness, thyromegaly - Respiratory Respiratory exam: Present: Coarse rhonchi bilaterally. Absent: accessory muscle use, chest wall tenderness - Cardiovascular Cardiovascular exam: Present: regular rate and rhythm. Absent: carotid bruit, gallop, JVD, rubs - GI/Abdominal GI/Abdominal exam: Present: normal bowel sounds, soft. Absent: distended, firm , guarding, hernia, mass, tenderness, rebound. - Extremities Exam Extremities exam: Present: normal inspection, normal capillary refill. Absent: calf tenderness, edema - Back Exam Back exam: Present: normal inspection. Absent: muscle spasm, vertebral tenderness - Neurological Exam Neurological exam: Present: alert, oriented X3, grossly intact without resting or intention tremor - Psychiatric Psychiatric exam: Present: normal affect, normal mood - Skin Skin exam: Present: normal color, warm, dry, intact. Absent: cyanosis, diaphoretic, rash, urticaria Result/EKG - Labs CBC & BMP: 10/18/16 05:50 10/18/16 05:50 Lab Results: I have reviewed the past 24 hour labs Labs: Laboratory Results - last 24 hr 10/18/16 10/18/16 05:50 05:50 WBC 5.4 RBC 4.31 Hgb 12.6 L Hct 38.6 L MCV 89.6 MCH 29 MCHC 32.6 RDW 14.3 Plt Count 194 MPV 9.9 Neut % (Auto) 56.0 Lymph % (Auto) 30.0 [place] % (Auto) 11.9 Eos % (Auto) 1.7 Baso % (Auto) 0.2 Neut # (Auto) 3.1 Lymph # (Auto) 1.6 [place] # (Auto) 0.7 Eos # (Auto) 0.1 Baso # (Auto) 0.0 Immature Gran % 0.2 Nucleated RBC % 0.0 Immature Gran # 0.01 Nucleated RBCs # 0.00 Sodium 143 Potassium 4.0 Chloride 103 Carbon Dioxide 29 Anion Gap 15.0 BUN 43 H Creatinine 2.30 H GFR Calculation 31 BUN/Creatinine Ratio 18.00 Glucose 103 Calculated Osmolality 295.0 Calcium 8.5 Magnesium 2.0 Quality Measures - VTE Contraindication to Pharmacological VTE Prophylaxis: Already on Theraputic Agent , No Prophylaxis Needed - Stroke Onset of Symptoms Date: 10/12/16 Specialty Discharge - Follow Up or Referrals Follow up with: Teodoro Harris MD [Physician] - 2 Weeks
[2016-10-18] MEDS ORDERED: ENOXAPARIN 30 MG/0.3 ML SYRINGE SUBCUT SCH (17:00)
[2016-10-18] MEDS: amLODIPine 5 MG TABLET PO SCH (17:27)
--- NOTE | 2016-10-18 17:27 | XRay Report ---
XR chest 2V Indication: Shortness of breath. Chest 2 views: Since 2 days earlier, the pulmonary edema has decreased significantly. Lungs are now essentially clear. Pleural spaces are clear. Mild cardiomegaly has decreased although remains enlarged. Thoracic aortic tortuosity again shown. Impression: Marked improvement in CHF as described. PROCEDURE INTERPRETED AT [facility] DEPARTMENT OF RADIOLOGY Final Report Signed by: Karlos Tena M.D.
[2016-10-18] MEDS: ATORVASTATIN 40 MG TABLET PO SCH (21:12)
[2016-10-19 05:57] LABS: Basophils % 0.8 % (0.0-0.8); Eosinophils # 0.1 10*3/uL (0.0-0.87); Eosinophils % 2.5 % (0.00-10.9); Hematocrit 39.8 VOL% (42.0-52.0); Immature Granulocytes % 0.2 %; Immature Granulocytes Absolute 0.01 #; Lymphocytes # 1.5 10*3/uL (1.4-4.0); Lymphocytes % 30.6 % (21.2-54.2); Mean Corpuscular HGB Conc 32.7 GM/DL (32-36); Mean Corpuscular Hemoglobin 30 PG (27-34); Mean Corpuscular Volume 91.9 FL (87-102); Mean Platelet Volume 9.7 FL (9.6-12.0); Monocytes # 0.7 10*3/uL (0.11-0.8); Monocytes % 14.3 % (1.7-12.7); Neutrophils # 2.4 10*3/uL (1.4-7.4); Neutrophils % 51.6 % (38.7-73.9); Platelet Count 195 10*3/uL (130-400); Red Blood Count 4.33 10*6/uL (3.8-5.5); Red Cell Distribution Width 14.3 % (9.3-17.3); White Blood Count 4.7 10*3/uL (4.5-13.71)
[2016-10-19 06:33] LABS: Calcium 8.7 MG/DL (8.5-10.1); Magnesium 2.1 MG/DL (1.8-2.4); Osmolality,Calculated 298.3 MOS/KG (273-304); Potassium 3.8 MMOL/L (3.5-5.1)
[2016-10-19] MEDS: IPRATROPIUM 500 MCG/2.5 ML NEB RESP TX SCH ×2 (07:59→11:25)
[2016-10-19] MEDS: PANTOPRAZOLE 40 MG TABLET PO SCH (09:28)
[2016-10-19] MEDS: amLODIPine 5 MG TABLET PO SCH (09:28)
[2016-10-19] MEDS: CARVEDILOL 6.25 MG TABLET PO SCH (09:28)
[2016-10-19] MEDS: hydrALAZINE 25 MG TABLET PO SCH ×2 (09:28→13:05)
[2016-10-19] MEDS: FUROSEMIDE 40 MG/4 ML VIAL IV SCH (09:28)
[2016-10-19] MEDS: TICAGRELOR 90 MG TABLET PO SCH (09:28)
[2016-10-19] MEDS: ASPIRIN EC 81 MG TABLET PO SCH (09:28)
--- NOTE | 2016-10-19 15:16 | Discharge Summary ---
Hospital Course - Hospital Course Hospital Course: The patient is an 86-year-old black male with history of coronary artery disease , with recent STEMI, status post PCI to his first diagonal artery. He presented with respiratory extremis. He had extreme hypertension, pulmonary edema. He was treated acutely in the emergency room. Stat CT scan of the chest ruled out pulmonary embolism, stat echocardiogram revealed normal LV systolic function. During his acute presentation, he had some paroxysms of profound sinus bradycardia that seems to be related to infusion of his Cardene drip. He was admitted to the ICU and underwent aggressive and rapid diuresis as well as blood pressure management. He did not have a spike in his cardiac biomarkers. He did not have any recurrent bradycardia arrhythmias once the Cardene drip was discontinued. On the day of discharge, he is clinically much improved, back to his baseline activity level and ready to go home. Diagnosis - Discharge Diagnosis (1) SOB (shortness of breath) Status: Acute (2) Coronary artery disease Status: Chronic (3) Peripheral vascular disease Status: Chronic (4) Hypertension Status: Chronic Specialty Discharge - Follow Up or Referrals Follow up with: Teodoro Harris MD [Physician] - 2 Weeks Layla Steen MD [Physician] - 2 Weeks Discharge Plan - Discharge Data Disposition: Disch To Home/Self Care Condition at Discharge: Stable Discharge Diet: heart healthy Activity: resume usual activities as tolerated Hygiene: no restrictions Driving: no restrictions - Discharge Medications New Carvedilol [Coreg] 6.25 mg PO BID #60 tablet amLODIPine [Norvasc] 10 mg PO DAILY #30 tablet Continue Albuterol Sulfate [Ventolin HFA] 2 puff INH Q6HR Tiotropium Inhalation [Spiriva Handihaler] 18 mcg INH DAILY Aspirin EC Tab 81 mg PO DAILY #30 tablet Atorvastatin [Lipitor] 40 mg PO BEDTIME Nitroglycerin Sl Tab [Nitrostat] 0.4 mg SL Q5M PRN #100 tablet PRN Reason: Chest Pain Ticagrelor [Brilinta] 90 mg PO BID #60 tablet Discontinued Carvedilol [Coreg] 12.5 mg PO BID - Follow Up or Referral Follow Up: Teodoro Harris MD [Physician] - 2 Weeks Layla Steen MD [Physician] - 2 Weeks - Forms/Instructions Instructions: Heart Failure (DC), How to Stop Smoking (DC), Chronic Obstructive Pulmonary Disease (DC) Exam - Constitutional Vitals: Period Temp Pulse Resp BP Sys/Lui Pulse Ox Last 24 Hr 97.4 F-98.2 F 58-81 16-20 114-150/64-79 90-100 Exam: General appearance: normal weight, no acute distress - Head Head exam: Present: normal inspection, normocephalic, atraumatic. Absent: hematoma, laceration - Eye Eye exam: Present: EOMI. Absent: conjunctival injection, nystagmus, periorbital swelling, scleral icterus, laceration to eyelids Pupils: Present: PERRL. Absent: constricted, dilated, fixed, irregular, unequal - ENT ENT exam: Present: normal exam, normal external ear exam - Neck Neck exam: Present: normal inspection. Absent: lymphadenopathy, meningismus, tenderness, thyromegaly - Respiratory Respiratory exam: Present: CTA B bilaterally. Absent: accessory muscle use, chest wall tenderness - Cardiovascular Cardiovascular exam: Present: regular rate and rhythm. Absent: carotid bruit, gallop, JVD, rubs - GI/Abdominal GI/Abdominal exam: Present: normal bowel sounds, soft. Absent: distended, firm , guarding, hernia, mass, tenderness, rebound. - Extremities Exam Extremities exam: Present: decreased BLE pulses. Absent: calf tenderness, edema - Back Exam Back exam: Present: normal inspection. Absent: muscle spasm, vertebral tenderness - Neurological Exam Neurological exam: Present: alert, oriented X3, grossly intact without resting or intention tremor - Psychiatric Psychiatric exam: Present: normal affect, normal mood - Skin Skin exam: Present: normal color, warm, dry, intact. Absent: cyanosis, diaphoretic, rash, urticaria Discharge Results Procedures and tests throughout hospitalization: Pending Orders 10/20/16 04:00 Basic Metabolic Panel w/Mg IN AM Comp Blood Count Auto Diff IN AM Labs on day of discharge: Labs from last 24 hours 10/19/16 10/19/16 05:33 05:33 WBC 4.7 RBC 4.33 Hgb 13.0 L Hct 39.8 L MCV 91.9 MCH 30 MCHC 32.7 RDW 14.3 Plt Count 195 MPV 9.7 Neut % (Auto) 51.6 Lymph % (Auto) 30.6 [place] % (Auto) 14.3 H Eos % (Auto) 2.5 Baso % (Auto) 0.8 Neut # (Auto) 2.4 Lymph # (Auto) 1.5 [place] # (Auto) 0.7 Eos # (Auto) 0.1 Baso # (Auto) 0.0 Immature Gran % 0.2 Nucleated RBC % 0.0 Immature Gran # 0.01 Nucleated RBCs # 0.00 Sodium 141 Potassium 3.8 Chloride 99 Carbon Dioxide 32 Anion Gap 13.8 BUN 52 H Creatinine 2.30 H GFR Calculation 30 BUN/Creatinine Ratio 22.00 H Glucose 167 H Calculated Osmolality 298.3 Calcium 8.7 Magnesium 2.1 DS: Provider Date of admission: 10/15/16 20:49 Primary care physician: . No PCP Attending physician on admission: Layla Steen, Consults: 10/17/16 09:52 Consult to Physician [CONS] Routine Comment: evalutation of left hip cyst/abscess Consulting Provider: Teodoro Harris Consult to Specialist Group: Surgery Person Notified: KOBI Date Notified: 10/17/16 Time Notified: 10:30 10/18/16 16:59 Consult to Physical Therapy [CONS] Routine Reason for Physical Therapy: Evaluate and Treat Discharging clinician: Layla Steen, Expected date of discharge: 10/19/16
[2016-10-19 16:41] VITALS: BP 114/56
--- NOTE | 2016-10-29 16:31 | Physician Query Form ---
CLICK EDIT DOCUMENT TO SELECT QUERY ANSWER --> OK --> SIGN Aida Ahuja RN Clinical Coffee Bar Attendant W) [phone] (f) [phone] [email or web address] PROVIDERS: Make your selection(s) from the choices in EACH section by typing an "x" and enter comments in the comment section. Please use your independent medical judgment in providing your response. This request does not imply that any particular answer is desired or expected. CLINICAL INDICATORS: (Providers should not edit this section) The below diagnosis was documented in the record, but is not consistently noted in subsequent documentation. Diagnosis: COPD exacerbation Based on documentation of "Acute exacerbation of chronic obstructive airways disease", ER nurse note states "ems states on room air pt 86 %, pt arrives on cpap at 10 liters." Pt. treated with IV Solumedrol. Please clarify the following: ( ) The above diagnosis was monitored, evaluated, and/or treated and is a confirmed diagnosis ( ) The above diagnosis was ruled out ( ) The above diagnosis is still a likely, suspected, probable diagnosis ( ) Other, please specify: (x ) Clinically unable to determine COMMENTS: Use of terms such as suspected, likely, or probable (associated with a specific diagnosis that is being evaluated, monitored, or treated as if it exists) are acceptable and can be restated in the discharge summary if not ruled out. I was not involved in this patient's care MTDD
== END 2016-10-19 16:39 | disposition home or self-care (01) | DRG 293 ==
LOC: EDUNIT# → EDBD → N.ED 15:33 → N.EDINP 15:33 → N.CC 18:36 → N.TELEN 10-16 16:38
PROVIDERS: ADMIT Internal Medicine Cardiovascular Disease; ATTEND Internal Medicine Cardiovascular Disease

== ENCOUNTER 2017-01-20 15:54 | Inpatient (IN) ==
[2017-01-20] MEDS ORDERED: FUROSEMIDE 100 MG/10 ML VIAL IV STA (16:33)
[2017-01-20] MEDS ORDERED: ONDANSETRON 4 MG/2 ML VIAL IV STA (16:33)
[2017-01-20] MEDS ORDERED: methylPREDNISolone SOD SUC 125 MG/2 ML VIAL IV STA (16:33)
[2017-01-20] MEDS ORDERED: ALBUTEROL/IPRATROPIUM 3 ML NEB RESP TX STA (16:33)
[2017-01-20] MEDS ORDERED: MORPHINE 2 MG/1 ML SYRINGE IV STA (16:33)
[2017-01-20] MEDS ORDERED: ASPIRIN 325 MG TABLET PO STA (16:33)
--- NOTE | 2017-01-20 16:36 | EKG Report ---
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
[2017-01-20 16:57] LABS: ABG Base Excess -4.3 MMOL/L (-2.5-2.5); ABG HCO3 20.8 MMOL/L (20-26); ABG Oxygen Saturation 94.9 % (95-100); ABG PCO2 43.6 MM HG (35-48); ABG PH 7.311 (7.35-7.45); ABG PO2 80.8 MM HG (80-95); ABG TCO2 19.4 MMOL/L (23-27)
--- NOTE | 2017-01-20 16:58 | Emergency Department Note ---
Floridalma Patricia Mantricia, am scribing for, and in the presence of, Dakotah Lipscomb MD 16:40. Deisi Patricia Charles R, MD, personally performed the services described in this documentation, ascribed by Tessa Hedrick in my presence, and it is both accurate and complete [id number] . Arrival - Arrival Chief Complaint: Shortness of Breath Stated Complaint: SOB, CHEST PAIN ED Nursing Triage Note: Pt c/o SOB, CP, Cough, and Congestion started today at 1200 Mode of Arrival: Wheelchair Limitations: No Limitations Source: Patient Time Seen by Provider: 01/20/17 16:17 - History of Present Illness HPI Narrative: Pt is an 86 y/o black male arriving to ED by EMS with c/o SOB that onset around 12:00 today. Pt was seen by Dr. Steen earlier today for a follow-up. However , the symptom worsened after leaving. Pt admits to smoking "a little." He has a PMHx of COPD and HTN but denies SD. He also states that he once has had colon cancer, but "it has now been removed." Pt is currently taking blood thinners. He reports that he has no PCP. Onset (ago): hour(s) Consistency: constant Severity: mild Severity scale (1-10): 3 Allergies/Adverse Reactions: Allergies Allergy/AdvReac Type Severity Reaction Status Date / Time No Known Allergies Allergy Verified 04/23/15 13:07 Home Medications: Home Medications Medication Instructions Recorded Confirmed Type Albuterol Sulfate [Ventolin HFA] 2 puff INH Q6HR PRN 04/23/15 01/20/17 History Aspirin EC Tab 81 mg PO DAILY #30 tablet 09/02/16 01/20/17 Rx Nitroglycerin Sl Tab [Nitrostat] 0.4 mg SL Q5M PRN #100 tablet 09/02/16 Rx Ticagrelor [Brilinta] 90 mg PO BID #60 tablet 09/02/16 01/20/17 Rx Atorvastatin [Lipitor] 40 mg PO BEDTIME 10/15/16 01/20/17 History Carvedilol [Coreg] 6.25 mg PO BID #60 tablet 10/19/16 01/20/17 Rx Nebivolol HCl [Bystolic] 20 mg PO DAILY 01/20/17 01/20/17 History Review of System - Review of System 12 point system: reviewed and no additional remarkable complaints except as stated - Review of System Constitutional: Absent: chills, diaphoresis, fever Eyes: Absent: discharge, pain Head/Ears/Nose/Throat: Absent: earache Respiratory: Absent: cough, respiratory distress Cardiovascular: Present: chest pain, dyspnea on exertion Gastrointestinal: Absent: abdominal pain, nausea, vomiting, diarrhea Genitourinary male: Absent: urgency, dysuria, frequency Musculoskeletal: Absent: arm pain, back pain, leg pain, neck pain, upper back pain Skin: Absent: rash, lesions, change in color Neurological: Absent: headache, weakness Psychiatric: Absent: anxiety, depression Medical,Surgical,& Family Hx - Medical History Cardio: History of: CAD, Hypertension (states takes two different BP meds but doesn't know the name of the other o), PVD, Cardiovascular Problems Neurology: History of: Seizures ("years ago") HEENT: History of: HEENT Problems (cataract surgery bilaterally) Rheumatology: History of;: Rheumatoid Arthritis Respiratory: History of: Asthma, COPD (Smoker) No history of: Obstructive Sleep Apnea Genitourinary: History of: Bladder Problem (frequency) Gastrointestinal: History of: Gastrointestinal Cancer Other: History of: Cancer (gastrointestinal) - Surgical History Cardiac Surgeries: Sugical HX of: Cardiac Catheterization (with stent to first diagonal august 2016) Abdominal Surgeries: Surgical HX of: Abdominal Surgery (part of colon removed) - Family History Family History: Reports;: Family Cancer (daughter, eye.), Family Heart Disease ( father, brother,), Family Hypertension (mother, father, brother, sister) - Social History Smoking Status: Current every day smoker Exam Vital Signs: Vital Signs Temperature 98.4 F 01/20/17 17:50 Pulse Rate 129 H 01/20/17 17:50 Respiratory Rate 20 01/20/17 17:50 Blood Pressure 145/97 01/20/17 17:50 O2 Sat by Pulse Oximetry 99 01/20/17 16:51 - General General appearance: alert, in no apparent distress - Head Head exam: Present: atraumatic, normocephalic, normal inspection - Eye Eye exam: Present: normal appearance, PERRL, EOMI - ENT ENT exam: Present: normal exam, normal oropharynx, mucous membranes moist, TM's normal bilaterally, normal external ear exam - Neck Neck exam: Present: normal inspection, full ROM, trachea midline. Absent: tenderness - Chest Chest inspection: Present: normal inspection, symmetric chest wall rise. Absent : tenderness - Respiratory Respiratory exam: Present: rales, rhonchi, wheezes - Cardiovascular Cardiovascular exam: Present: normal rhythm, bradycardia - Abdominal Exam Abdominal exam: Present: soft, diminished bowel sounds. Absent: distention, tenderness, guarding, rebound - Extremities Exam Extremities exam: Present: full ROM, normal capillary refill, pedal edema (+2 LE ). Absent: tenderness - Back Exam Back exam: Present: normal inspection, full ROM. Absent: tenderness - Neurological Exam Neurological exam: Present: alert, oriented X3, CN II-XII intact, normal gait, reflexes normal - Psychiatric Psychiatric exam: Present: normal affect, normal mood - Skin Skin exam: Present: warm, dry, intact, normal color Course - Consultations Consultation #1: Dr. Lees will admit patient Time: 18:36 Results - Labs CBC & BMP: 01/20/17 17:14 01/20/17 17:14 Lab Results: I have reviewed the patients labs Labs: Laboratory Tests 01/20/17 01/20/17 16:45 17:14 Lymph % (Auto) 16.4 L Lymph # (Auto) 0.7 L ABG pH 7.311 L ABG Total CO2 19.4 L ABG O2 Saturation 94.9 L ABG Base Excess -4.3 L - Diagnostic Findings Procedure: Chest x-ray: report reviewed by me (CHF decompensation.) Critical Care Time Critical Care Time: Yes Total Critical Care Time: 60 Disposition Clinical Impression: Hypertension, Congestive heart failure, Coronary artery disease, SOB ( shortness of breath), Peripheral vascular disease, Malignant hypertension, Acute exacerbation of chronic obstructive airways disease Case discussed with: patient, patient's family Disposition: Still a Patient Condition: Guarded Time of Disposition: 18:42
[2017-01-20] MEDS ORDERED: ONDANSETRON 4 MG/2 ML VIAL ONE (17:00)
[2017-01-20] MEDS ORDERED: ASPIRIN 325 MG TABLET ONE (17:00)
[2017-01-20] MEDS ORDERED: MORPHINE 2 MG/1 ML SYRINGE ONE (17:00)
[2017-01-20] MEDS ORDERED: FUROSEMIDE 40 MG/4 ML VIAL ONE (17:00)
[2017-01-20] MEDS ORDERED: methylPREDNISolone SOD SUC 125 MG/2 ML VIAL ONE (17:00)
[2017-01-20] MEDS ORDERED: FUROSEMIDE 20 MG/2 ML VIAL ONE (17:00)
--- NOTE | 2017-01-20 17:05 | XRay Report ---
XR chest 1V portable Indication: Shortness of breath. Chest one view: Comparison 10/18/2016. Cardiomegaly has worsened with increasing pulmonary vascular congestion and increased reticular prominence of the lungs diffusely. Right hemidiaphragm is more elevated as well with progressive atelectasis. Thoracic aortic tortuosity is stable. Impression: CHF decompensation. PROCEDURE INTERPRETED AT [facility] DEPARTMENT OF RADIOLOGY Final Report Signed by: Karlos Tena M.D.
[2017-01-20] MEDS ORDERED: hydrALAZINE 20 MG/1 ML VIAL IV STA (17:23)
[2017-01-20] MEDS ORDERED: hydrALAZINE 20 MG/1 ML VIAL ONE ×2 (17:27→20:36)
[2017-01-20 17:36] LABS: Basophils % 0.5 % (0.0-0.8); Hematocrit 42.2 VOL% (42.0-52.0); Immature Granulocytes % 0.5 %; Immature Granulocytes Absolute 0.02 #; Lymphocytes # 0.7 10*3/uL (1.4-4.0); Lymphocytes % 16.4 % (21.2-54.2); Mean Corpuscular HGB Conc 33.2 GM/DL (32-36); Mean Corpuscular Hemoglobin 31 PG (27-34); Mean Corpuscular Volume 92.7 FL (87-102); Mean Platelet Volume 9.9 FL (9.6-12.0); Monocytes # 0.3 10*3/uL (0.11-0.8); Monocytes % 7.8 % (1.7-12.7); Neutrophils % 73.8 % (38.7-73.9); Platelet Count 177 T/CUMM (130-400); Red Blood Count 4.55 MC/CUMM (3.8-5.5); Red Cell Distribution Width 15.1 % (9.3-17.3); White Blood Count 4.1 T/CUMM (4-12)
[2017-01-20 17:51] LABS: INR 1.1
[2017-01-20 18:09] LABS: D-Dimer 6.4 MG/L FEU
[2017-01-20 18:12] LABS: Albumin 3.8 G/DL (3.4-5.0); Calcium 8.8 MG/DL (8.5-10.1); Osmolality,Calculated 289.3 MOS/KG (273-304); Potassium 4.3 MMOL/L (3.5-5.1); Total Protein 7.1 G/DL (6.4-8.3)
[2017-01-20 18:15] LABS: Troponin I Only 0.058 NG/ML (0.00-0.045)
[2017-01-20] MEDS ORDERED: hydrALAZINE 20 MG/1 ML VIAL IV ONE (20:39)
[2017-01-20] MEDS ORDERED: POTASSIUM CHLORIDE 20 MEQ TABLET PO PRN (21:21)
[2017-01-20] MEDS ORDERED: ONDANSETRON 4 MG/2 ML VIAL IV PRN (21:21)
[2017-01-20] MEDS ORDERED: ALBUTEROL/IPRATROPIUM 3 ML NEB RESP TX PRN (21:21)
[2017-01-20] MEDS ORDERED: ALBUTEROL 2.5 MG/3 ML NEB RESP TX PRN (21:21)
[2017-01-20] MEDS ORDERED: MORPHINE 2 MG/1 ML SYRINGE IV PRN (21:21)
[2017-01-20] MEDS ORDERED: NITROGLYCERIN SL 0.4 MG TABLET SL PRN (21:21)
[2017-01-20] MEDS ORDERED: CARVEDILOL 6.25 MG TABLET PO SCH (21:21)
[2017-01-20] MEDS ORDERED: hydrALAZINE 20 MG/1 ML VIAL IV PRN (21:21)
[2017-01-20] MEDS ORDERED: MAGNESIUM SULF RIDER 2 GM in PREMIX 1 EACH IV PRN (21:21)
[2017-01-20] MEDS ORDERED: MAGNESIUM SULF RIDER 4 GM in PREMIX 1 EACH IV PRN (21:21)
[2017-01-20] MEDS: TICAGRELOR 90 MG TABLET PO SCH (21:49)
[2017-01-20] MEDS: ATORVASTATIN 40 MG TABLET PO SCH (21:49)
[2017-01-20 23:13] LABS: Troponin I Only 0.064 NG/ML (0.00-0.045)
[2017-01-20] MEDS: SODIUM CHLORIDE 0.9% 1,000 ML IV SCH (23:56)
[2017-01-21] MEDS: methylPREDNISolone SOD SUC 40 MG/1 ML VIAL IV SCH ×2 (00:52→10:10)
[2017-01-21 06:31] LABS: Hematocrit 40.9 VOL% (42.0-52.0); Hemoglobin 13.7 GM/DL (14.0-18.0); Immature Granulocytes % 0.4 %; Immature Granulocytes Absolute 0.02 #; Lymphocytes # 0.5 10*3/uL (1.4-4.0); Mean Corpuscular HGB Conc 33.5 GM/DL (32-36); Mean Corpuscular Hemoglobin 30 PG (27-34); Mean Corpuscular Volume 90.9 FL (87-102); Mean Platelet Volume 9.9 FL (9.6-12.0); Monocytes # 0.1 10*3/uL (0.11-0.8); Monocytes % 2.3 % (1.7-12.7); Neutrophils # 4.6 10*3/uL (1.4-7.4); Neutrophils % 87.3 % (38.7-73.9); Platelet Count 197 T/CUMM (130-400); Red Cell Distribution Width 14.7 % (9.3-17.3); White Blood Count 5.3 T/CUMM (4-12)
[2017-01-21 07:07] LABS: Albumin 3.5 G/DL (3.4-5.0); Bilirubin,Total 0.8 MG/DL (0.2-1.0); Calcium 8.6 MG/DL (8.5-10.1); Magnesium 1.9 MG/DL (1.8-2.4); Osmolality,Calculated 285.4 MOS/KG (273-304); Potassium 4.1 MMOL/L (3.5-5.1); Risk Ratio 2.71; Thyroid Stimulating Hormone 0.61 uIU/ml (0.358-3.74); Total Protein 6.8 G/DL (6.4-8.3); VLDL CHOLESTEROL 12.4 MG/DL
[2017-01-21] MEDS ORDERED: FUROSEMIDE 40 MG/4 ML VIAL IV SCH (08:00)
[2017-01-21] MEDS ORDERED: NEBIVOLOL 10 MG TABLET PO SCH (09:00)
[2017-01-21] MEDS ORDERED: CLOPIDOGREL 300 MG TABLET PO ONE (09:03)
--- NOTE | 2017-01-21 09:04 | Cardiology History & Physical ---
<Noreen Childers - Last Filed: 01/21/17 08:47> Assessment and Plan - Time spent with patient Time spent with patient: Greater than 30 minutes (1) Hypertensive urgency Status: Acute Assessment and plan: Patient presented to the ER with chief complaints of shortness of breath. Upon arrival to ER his blood pressure was noted to be 230/133. Patient is extremely noncompliant with his mediations. Shortness of breath and heart failure symptoms are thought to be secondary his uncontrolled hypertension. Will optimize his blood pressure medications and see if his symptoms improve. Chlorthalidone and Norvasc added to his medication regimen. Will further adjust as needed throughout his hospital stay. Further plan and addendum to follow per Dr. Lees. Current Visit: Yes (2) Acute exacerbation of chronic obstructive airways disease Status: Acute Assessment and plan: This also seems to be contributing to patient's shortness of breath. We will treat with respiratory treatments. Per Dr. Steen's clinic noted yesterday, patient has had appointment scheduled with Dr. Almonte. However, he has missed these appointments and has never undergone pulmonary evaluation. We will consult Dr. Almonte at this time for proper pulmonary evaluation. Current Visit: Yes (3) Coronary artery disease Status: Chronic Assessment and plan: Patient's most recent heart catheterization was done in August 2016. At that time he had PCI to first diagonal. He reports that he has not been compliant with his Brilinta. At this time, I feel that it is best that we change patient to Plavix as Plavix is dosed once a day. Hopefully, this will improve his compliance with his dual antiplatelet therapy. EKG does not reveal any acute findings. Troponin is only mildly elevated. However, after reviewing previous records it appears that his troponin and cardiac biomarkers are chronically elevated. Patient is without chest pain, heaviness and tightness. -He will be loaded with Plavix today and Brilinta will be discontinued. -Continue aspirin -Continue lipid-lowering agent. -Beta susie has been inhaled at this time due to transient complete AV block. This has now resolved. Current Visit: Yes (4) Hypertension Status: Chronic Current Visit: Yes (5) Peripheral vascular disease Status: Chronic Assessment and plan: This is clinically stable at this time. Continue current plan of care. Current Visit: Yes (6) Noncompliance Status: Acute Assessment and plan: Spent a great deal of time discussing with patient the importance of medication compliance. Current Visit: Yes (7) AV block, 3rd degree Status: Acute Assessment and plan: Patient had an episode of transient complete heart block last night. This is now resolved. Per Dr. Steen's note, patient has been taking 2 beta- blockers at home. We will hold patient's beta blockers at this time and continue to watch him closely on the monitoring manager and make further adjustments as needed throughout his hospital stay. Plan and addendum to follow per Dr. Lees. Current Visit: Yes (8) Hyperlipidemia Status: Chronic Assessment and plan: Continue current plan of care with lipid lowering agent. Current Visit: Yes (9) Renal insufficiency Status: Chronic Assessment and plan: Creatinine today is 1.8. This appears to be patient's baseline. We will continue to monitor with daily BMP. Current Visit: Yes History of Present Illness Chief complaint: Shortness of breath and chest discomfort History of present illness: Conditioning Machine Operator: Dr. Steen PCP: None Cardiology H&P Mr. Gibson is a 86 year old male with known history of coronary artery disease, routinely followed by Dr. Steen. Patient presented to the emergency room yesterday afternoon with complaints of shortness of breath. Patient has cardiac risk factors significant for hypertension, dyslipidemia, known history of coronary artery disease, advanced age, sedentary lifestyle, PVD (patient had abnormal ABIs and CT angiogram was ordered. However, per Dr. Steen's note angiogram was never done), and current everyday smoker. Patient has past medical history of ST elevation myocardial infarction August 2016 with PCI to first diagonal, renal insufficiency and COPD (patient was referred to Dr. Almonte. However, per Dr. Steen's note he did not attend that appointment and he never underwent pulmonary evaluation). Patient's last heart catheterization was done in August 2016. At that time, he had a ST elevation myocardial infarction and required PCI to first diagonal. He was also found to have small branch disease. 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 He was discharged home with Brilinta and aspirin at that time. He confirms that he has been noncompliant with these medications. He was related with Brilinta yesterday per Dr. Steen. He last had an echocardiogram September 2016 which revealed ejection fraction of 55% with grade 1 out of 4 diastolic dysfunction. Pulmonary hypertension with pulmonary pressure estimated at 52 mmHg. Mild mitral and tricuspid regurgitation. He was last seen by Dr. Steen in the clinic yesterday. According to her note, he was taking 2 beta-blockers. His Coreg was supposed to be changed to by systolic. However, he continued to take both Coreg and Bystolic. At the time of his appointment yesterday he did not have any major complaints. He reported that his shortness of breath was controlled and had actually improved from his previous visit. He denies chest pain, heaviness and tightness. Patient was in his usual state of health until yesterday when he got home from his doctor's appointment with Dr. Steen he became short of breath. He reports that he did not experience any chest pain, heaviness and tightness. He also confirms a feeling weak and somewhat nauseated. At that time, he contacted his neighbor and he transported him to the emergency department for further evaluation. Upon arrival to the emergency department his blood pressure was noted to be 230/133. Chest x-ray did reveal mild CHF decompensation. BNP 4744. Most likely secondary to his uncontrolled hypertension. Patient was treated appropriately with diuretics. Chest x-ray this morning has much improved. Patient reports that his breathing has much improved this morning. Patient has been admitted under cardiology service and housed on the telemetry floor. Of note, patient reports that he walks around the block. He reports that the last time that he did this was last week. He reports that he tolerates this well and is able to perform this activity without any chest pain, heaviness and tightness. He does confirm mild dyspnea. However, he reports that this is unchanged. He does have chronic dyspnea. He denies any recent dizziness or presyncope spells. He also denies fever, chills, abdominal pain, vomiting, melena and palpitations. He does confirm mild orthopnea and lower extremity swelling. Patient was seen and examined on the telemetry unit with Dr. Lees. Patient reports that his shortness of breath has greatly improved. He denies chest pain , heaviness and tightness. EKG does not reveal any acute findings and is unchanged from previous EKGs. Troponin is only mildly elevated. After reviewing patient's medical record, it appears that patient does have a chronically elevated troponin and this admission it is in fact lower than all of his previous admissions. BNP is noted to be 4744. Lasix was initiated in the emergency department. Patient has diuresed appropriately and reports that his breathing is much improved. Chest xray this morning has improved post diuresis. Lasix has now been discontinued due to rising creatinine, 1.8. Patient has history of renal insufficiency. Will monitor his BMP closely. Patient is extremely noncompliant with his mediations. Shortness of breath and heart failure symptoms are thought to be secondary his uncontrolled hypertension. Will optimize his blood pressure medications and see if his symptoms improve. Chlorthalidone and Norvasc added to his medication regimen. Will further adjust as needed throughout his hospital stay. Further plan and addendum to follow per Dr. Lees. Home Medications Medication Instructions Recorded Confirmed Type Albuterol Sulfate [Ventolin HFA] 2 puff INH Q6HR PRN 04/23/15 01/20/17 History Aspirin EC Tab 81 mg PO DAILY #30 tablet 09/02/16 01/20/17 Rx Nitroglycerin Sl Tab [Nitrostat] 0.4 mg SL Q5M PRN #100 tablet 09/02/16 Rx Ticagrelor [Brilinta] 90 mg PO BID #60 tablet 09/02/16 01/20/17 Rx Atorvastatin [Lipitor] 40 mg PO BEDTIME 10/15/16 01/20/17 History Carvedilol [Coreg] 6.25 mg PO BID #60 tablet 10/19/16 01/20/17 Rx Nebivolol HCl [Bystolic] 20 mg PO DAILY 01/20/17 01/20/17 History Allergies Allergy/AdvReac Type Severity Reaction Status Date / Time No Known Allergies Allergy Verified 04/23/15 13:07 - Constitutional Constitutional: Present: weakness. Absent: chills, fatigue, fever(s), frequent falls, lethargy, weight gain, weight loss - Cardiovascular Cardiovascular: Present: as per HPI, dyspnea, edema, orthopnea. Absent: chest pain with activity, radiating jaw, neck or arm pain, lightheadedness, palpitations, PND - Respiratory Respiratory: Present: dyspnea, wheezing. Absent: hemoptysis, snoring, pain on inspiration, change in phlegm color - Gastrointestinal Gastrointestinal: Absent: abdominal pain, change in bowel habits, coffee ground emesis, diarrhea, heartburn, hematemesis, hematochezia, loose stools, melena, nausea, vomiting - Neurological Neurological: Absent: abnormal gait, abnormal speech, behavioral changes, dizziness, frequent falls, syncope - Hematologic/Lymphatic Hematologic/Lymphatic: Absent: easy bleeding, easy bruising, lymphadenopathy Medical,Surgical,& Family Hx - Medical History Cardio: History of: CAD, Hypertension (states takes two different BP meds but doesn't know the name of the other o), IA, PVD, Cardiovascular Problems HEENT: History of: HEENT Problems (cataract surgery bilaterally) Endocrine: History of: Dyslipidemia Respiratory: History of: Asthma, COPD (Smoker) No history of: Obstructive Sleep Apnea Genitourinary: History of: Bladder Problem (frequency) Gastrointestinal: History of: Gastrointestinal Cancer Other: History of: Cancer (gastrointestinal) - Surgical History Cardiac Surgeries: Sugical HX of: Cardiac Catheterization (with stent to first diagonal august 2016) Abdominal Surgeries: Surgical HX of: Abdominal Surgery (part of colon removed) - Family History Family History: Reports;: Family Cancer (daughter, eye.), Family Heart Disease ( father, brother,), Family Hypertension (mother, father, brother, sister) - Social History Smoking Status: Current every day smoker Frequency of Alcohol Use: None Type of Drug Use: None Cardiology Physical Exam - Constitutional Vitals: Vital Signs Temp Pulse Resp BP Pulse Ox 98.2 F 57 L 20 187/91 99 01/21/17 08:00 01/21/17 08:00 01/21/17 08:00 01/21/17 08:00 01/21/17 08:00 Intake and Output 01/20/17 01/21/17 01/21/17 22:59 06:59 14:59 Intake Total 240 / 240 120 / 120 Balance 240 / 240 120 / 120 Intake: Oral 240 / 240 120 / 120 Other: Voiding Method Brief Brief # Voids 5 6 # Bowel Movements 1 1 Weight 151 lb 14.4 oz 151 lb 14.4 oz General appearance: normal weight, no acute distress - Head Head exam: Present: normal inspection, normocephalic, atraumatic - Neck Neck exam: Present: normal inspection. Absent: lymphadenopathy, meningismus, thyromegaly - Respiratory Respiratory exam: Present: decreased breath sounds, wheezes. Absent: accessory muscle use, chest wall tenderness - Cardiovascular Cardiovascular exam: Present: regular rate and rhythm. Absent: gallop, rubs, systolic murmur - GI/Abdominal GI/Abdominal exam: Present: normal bowel sounds, soft. Absent: distended, firm , mass, tenderness - Extremities Exam Extremities exam: Present: edema. Absent: calf tenderness - Neurological Exam Neurological exam: Present: alert, oriented X3 - Psychiatric Psychiatric exam: Present: normal affect, normal mood - Skin Skin exam: Present: normal color, warm, dry. Absent: cyanosis Result/EKG - Labs CBC & BMP: 01/21/17 06:13 01/21/17 06:13 Lab Results: I have reviewed the past 24 hour labs Labs: Laboratory Results - last 24 hr 01/20/17 01/21/17 01/21/17 22:19 06:13 06:13 WBC 5.3 RBC 4.50 Hgb 13.7 L Hct 40.9 L MCV 90.9 MCH 30 MCHC 33.5 RDW 14.7 Plt Count 197 MPV 9.9 Neut % (Auto) 87.3 H Lymph % (Auto) 10.0 L Angelina % (Auto) 2.3 Eos % (Auto) 0.0 Baso % (Auto) 0.0 Neut # (Auto) 4.6 Lymph # (Auto) 0.5 L Angelina # (Auto) 0.1 L Eos # (Auto) 0.0 Baso # (Auto) 0.0 Immature Gran % 0.4 Nucleated RBC % 0.0 Immature Gran # 0.02 Nucleated RBCs # 0.00 Sodium 140 Potassium 4.1 Chloride 106 Carbon Dioxide 24 Anion Gap 14.1 BUN 25 H Creatinine 1.80 H GFR Calculation 40 BUN/Creatinine Ratio 13.00 Glucose 154 H Calculated Osmolality 285.4 Calcium 8.6 Magnesium 1.9 Total Bilirubin 0.80 AST 29 ALT 63 H Alkaline Phosphatase 92 Total Creatine Kinase 132 CK-MB (CK-2) 4.2 H Troponin I 0.064 H B-Natriuretic Peptide Total Protein 6.8 Albumin 3.5 Globulin 3.3 Albumin/Globulin Ratio 1.0 L Triglycerides 62 Cholesterol 133 LDL Cholesterol 73.0 VLDL Cholesterol 12.4 HDL Cholesterol 49 Heart Disease Risk Ratio 2.71 Free T4 TSH 3rd Generation 0.610 01/21/17 01/21/17 01/21/17 06:13 06:13 06:13 WBC RBC Hgb Hct MCV MCH MCHC RDW Plt Count MPV Neut % (Auto) Lymph % (Auto) Angelina % (Auto) Eos % (Auto) Baso % (Auto) Neut # (Auto) Lymph # (Auto) Angelina # (Auto) Eos # (Auto) Baso # (Auto) Immature Gran % Nucleated RBC % Immature Gran # Nucleated RBCs # Sodium Potassium Chloride Carbon Dioxide Anion Gap BUN Creatinine GFR Calculation BUN/Creatinine Ratio Glucose Calculated Osmolality Calcium Magnesium Total Bilirubin AST ALT Alkaline Phosphatase Total Creatine Kinase 122 CK-MB (CK-2) 4.2 H Troponin I 0.090 H D B-Natriuretic Peptide 4744 H Total Protein Albumin Globulin Albumin/Globulin Ratio Triglycerides Cholesterol LDL Cholesterol VLDL Cholesterol HDL Cholesterol Heart Disease Risk Ratio Free T4 1.69 H TSH 3rd Generation Quality Measures - Stroke Symptom Onset Unknown: No <Laura Lees - Last Filed: 01/21/17 11:01> Assessment and Plan (1) Coronary artery disease Status: Chronic Current Visit: Yes (2) Hypertension Status: Chronic Current Visit: Yes (3) Peripheral vascular disease Status: Chronic Current Visit: Yes (4) Malignant hypertension Status: Acute Current Visit: Yes (5) Acute exacerbation of chronic obstructive airways disease Status: Acute Current Visit: Yes (6) Hypertensive urgency Status: Acute Current Visit: Yes (7) Noncompliance Status: Acute Current Visit: Yes (8) AV block, 3rd degree Status: Acute Current Visit: Yes (9) Hyperlipidemia Status: Chronic Current Visit: Yes (10) Renal insufficiency Status: Chronic Current Visit: Yes History of Present Illness History of present illness: Mr. Gibson is a 86 year old male noncompliant gentleman that I talked to Dr. Steen about I saw and examined with Ms. Childers also talked to Dr. Lipscomb yesterday about. There is significant confusion about his medicines and he appears to be noncompliant. He had a recent PCI and still needs to be on dual antiplatelet therapy but has not been taking his Brilinta but apparently was reloaded yesterday. I will try to simplify his regimen both from a call standpoint and a compliance standpoint. He also had a 6 second pause of ventricular activity with high degree AV block and is on 2 beta blockers we will try to simplify this regimen as well. I think his symptoms are from COPD and probably some heart failure from his severely uncontrolled hypertension which would make it a hypertensive emergency. We will adjust his medications and anticipate discharge tomorrow if his blood pressures under control he does not rule in for myocardial ischemia and he has no additional pauses with cessation of his AV tita blocking agents. The goal is to get his blood pressure doing better it would not need to be at target. The patient thinks that he feels poorly because of news he received about his niece's yesterday. Please see the orders Cardiology Physical Exam - Constitutional Vitals: Vital Signs Temp Pulse Resp BP Pulse Ox 98.2 F 57 L 20 187/91 99 01/21/17 08:00 01/21/17 08:00 01/21/17 08:00 01/21/17 08:00 01/21/17 08:00 Intake and Output 01/20/17 01/21/17 01/21/17 23:59 07:59 15:59 Intake Total 240 / 240 120 / 120 Balance 240 / 240 120 / 120 Intake: Oral 240 / 240 120 / 120 Other: Voiding Method Brief Brief # Voids 5 6 # Bowel Movements 1 1 Weight 68.901 kg 68.901 kg Patient Weight 01/21/17 23:59 Weight 68.901 kg Result/EKG - Labs CBC & BMP: 01/21/17 06:13 01/21/17 06:13 Labs: Laboratory Results - last 24 hr 01/20/17 01/21/17 01/21/17 22:19 06:13 06:13 WBC 5.3 RBC 4.50 Hgb 13.7 L Hct 40.9 L MCV 90.9 MCH 30 MCHC 33.5 RDW 14.7 Plt Count 197 MPV 9.9 Neut % (Auto) 87.3 H Lymph % (Auto) 10.0 L Angelina % (Auto) 2.3 Eos % (Auto) 0.0 Baso % (Auto) 0.0 Neut # (Auto) 4.6 Lymph # (Auto) 0.5 L Angelina # (Auto) 0.1 L Eos # (Auto) 0.0 Baso # (Auto) 0.0 Immature Gran % 0.4 Nucleated RBC % 0.0 Immature Gran # 0.02 Nucleated RBCs # 0.00 Sodium 140 Potassium 4.1 Chloride 106 Carbon Dioxide 24 Anion Gap 14.1 BUN 25 H Creatinine 1.80 H GFR Calculation 40 BUN/Creatinine Ratio 13.00 Glucose 154 H Calculated Osmolality 285.4 Calcium 8.6 Magnesium 1.9 Total Bilirubin 0.80 AST 29 ALT 63 H Alkaline Phosphatase 92 Total Creatine Kinase 132 CK-MB (CK-2) 4.2 H Troponin I 0.064 H B-Natriuretic Peptide Total Protein 6.8 Albumin 3.5 Globulin 3.3 Albumin/Globulin Ratio 1.0 L Triglycerides 62 Cholesterol 133 LDL Cholesterol 73.0 VLDL Cholesterol 12.4 HDL Cholesterol 49 Heart Disease Risk Ratio 2.71 Free T4 TSH 3rd Generation 0.610 01/21/17 01/21/17 01/21/17 06:13 06:13 06:13 WBC RBC Hgb Hct MCV MCH MCHC RDW Plt Count MPV Neut % (Auto) Lymph % (Auto) Angelina % (Auto) Eos % (Auto) Baso % (Auto) Neut # (Auto) Lymph # (Auto) Angelina # (Auto) Eos # (Auto) Baso # (Auto) Immature Gran % Nucleated RBC % Immature Gran # Nucleated RBCs # Sodium Potassium Chloride Carbon Dioxide Anion Gap BUN Creatinine GFR Calculation BUN/Creatinine Ratio Glucose Calculated Osmolality Calcium Magnesium Total Bilirubin AST ALT Alkaline Phosphatase Total Creatine Kinase 122 CK-MB (CK-2) 4.2 H Troponin I 0.090 H D B-Natriuretic Peptide 4744 H Total Protein Albumin Globulin Albumin/Globulin Ratio Triglycerides Cholesterol LDL Cholesterol VLDL Cholesterol HDL Cholesterol Heart Disease Risk Ratio Free T4 1.69 H TSH 3rd Generation
--- NOTE | 2017-01-21 09:41 | XRay Report ---
XR chest 2V Indication: Shortness of breath. Chest 2 views: Comparison 5-17. Mild cardiomegaly, tortuous thoracic aorta with calcified atheromatous disease and interstitial prominence of the lungs with subpleural septal thickening and minimally prominent central pulmonary arteries are stable. No new infiltrates are shown. Tiny right pleural effusion suspected. Impression: Relatively stable appearing mild CHF. PROCEDURE INTERPRETED AT [facility] DEPARTMENT OF RADIOLOGY Final Report Signed by: Karlos Tena M.D.
--- NOTE | 2017-01-21 10:04 | Physician Query Form ---
CLICK EDIT DOCUMENT TO SELECT QUERY ANSWER --> OK --> SIGN Aida Ahuja RN Clinical [employer] Charger Operator W) [phone] (f) [phone] [email or web address] PROVIDERS: Make your selection(s) from the choices in EACH section by typing an "x" and enter comments in the comment section. Please use your independent medical judgment in providing your response. This request does not imply that any particular answer is desired or expected. CLINICAL INDICATORS: (Providers should not edit this section) Based on documentation of "CHF" in ER record, [id number], Echo done 10/15/16 showed EF of 55% with Grade 1/4 diastolic dysfunction. CXR showed CHF decompensation. Pt. treated with IV Lasix. Please provide further specificity regarding CHF. ACUITY: ( ) Acute ( ) Chronic ( x) Acute on Chronic ( ) Clinicallly unable to determine TYPE: ( ) Systolic ( ) Diastolic ( ) Combined Systolic/Diastolic ( ) Other, please specify: ( x) Clinically unable to determine ( ) The patient does NOT have CHF COMMENTS: Patient last had an echo Sep 2016. At that time his ejection fraction was noted to be 55% with grade 1 diastolic dysfunction. Echocardiogram was not repeated this hospitalization as patient just recently just had this done. More than likely patient's heart failure continues to be diastolic in nature as patient had a normal ejection fraction a couple of months ago. Use of terms such as suspected, likely, or probable (associated with a specific diagnosis that is being evaluated, monitored, or treated as if it exists) are acceptable and can be restated in the discharge summary if not ruled out. MTDD
[2017-01-21] MEDS: amLODIPine 10 MG TABLET PO SCH (10:07)
[2017-01-21] MEDS: PANTOPRAZOLE 40 MG TABLET PO SCH (10:07)
[2017-01-21] MEDS: TICAGRELOR 90 MG TABLET PO SCH (10:07)
[2017-01-21] MEDS: ASPIRIN EC 81 MG TABLET PO SCH (10:07)
[2017-01-21] MEDS: CHLORTHALIDONE 25 MG TABLET PO SCH (10:08)
[2017-01-21 14:49] LABS: Troponin I Only 0.109 NG/ML (0.00-0.045)
[2017-01-21] MEDS ORDERED: methylPREDNISolone SOD SUC 40 MG/1 ML VIAL IV ONE (18:10)
--- NOTE | 2017-01-21 18:24 | Pulmonology Consult Note ---
History of Present Illness Chief complaint: Acute exacerbation of COPD. Acute CHF. Moderate MR History of present illness: Mr. Gibson is a 86 year old black male whom I been asked to see in pulmonary consultation for evaluation and treatment of cough shortness of breath greenish discolored sputum and dyspnea on exertion. Patient was seen along with 2 female family members who spent the entire visit on the telephone. Hal Miller nurse practitioner was present. At the end of the visit I asked if they had any questions and they said "we just want to know why short of breath". This patient says he has had no hemoptysis. He denies aspiration. He has had orthopnea and PND but this seems to be improved. The remainder of his review of systems is negative except that he notes he has had some swelling in his legs. Allergies none Home medicines. See below Hospital medicines see below Past history. Hospitalization August 2016 with a STEMI and a PCI to 100% occluded first diagonal requiring placement of a stent ejection fraction was 45- 50% with moderate mitral regurgitation. Other problems have included COPD. Smoking cigarettes. Chewing tobacco. Hypertension. Hyperlipidemia. Renal insufficiency. Follow-up echocardiogram done September 2016 showed ejection of 55 % with diastolic dysfunction and atrial enlargement and moderate mitral regurgitation with tricuspid regurgitation and pulmonary artery pressures 52 mm of there was mild concentric left ventricular hypertrophy. There is a past history of colon cancer. Unknown note by Dr. Ghulam Chaviar said he had a partial colon resection 2002 history of peripheral vascular disease. Family history. Positive for high blood pressure and heart disease. Social history patient started smoking in August 2050 and he may have smoked every day since then. More recently records indicate that he may have cut to approximately 10 cigarettes per day and has an old record from Dr. Ricketts states says that he stopped smoking he started chewing tobacco. Several areas old records indicate this patient has been noncompliant with his treatment Chest x-ray done 01/20/2017 shows acute congestive heart failure. Follow-up chest x-ray done 01/21/2017 shows cardiomegaly. Prominent pulmonary arteries. Benign calcifications both hilar areas normal mediastinum. Fluid in the minor fissure in the right costophrenic angle. No masses or infiltrates. Natruretic peptide is very between 2781 and 4744. Troponin is 0.109. Electrolytes are normal. Creatinine was 1.7 at admission is now 1.8 with a BUN at 25 proteins are normal. Admit lactic acid was 2.1. Glucoses are under fair control. Alkaline [place] is normal with a slight elevation of transaminases and a normal total bilirubin. TSH is normal with an elevated free T4. Admit white count was 4100 with 73.8 segs and 16.4 lymphs. Follow-up white count was 5300 with 87.3 segs and 10.0 lymphocytes. Platelets are 197,000. D-dimer is elevated at 6.4. INR is 1.1. Minute ABGs on supplemental oxygen showed a pH 7.31, PCO2 43.6, PO2 of 80.8 and a bicarb of 20.8. Labs been reviewed. Medicines been reviewed. Physical exam. Vital signs. See below Psychiatric. Oriented 3 and was able to give a fair history. Neurologic. Cranial nerves are intact with some decreased hearing acuity. Long track motor exam he moves all fours. Sensory exam was not done gait was not tested Face. Symmetrical. Lips and tongue appear to be normal. Neck. Symmetrical. Kyphotic. No meningismus. Lymphatics. No submandibular cervical supraclavicular or epitrochlear adenopathy. Chest coarse large airway congestion with large airway wheeze and prolonged expiration. Heart sounds were distant. I could not hear a gallop or rub. There was a good bit of respiratory noise present. Abdomen. No organs were palpated. Bowel sounds were present. Lower extremities. +1-1/2 over 4 bilateral pedal and pretibial edema that extends a few inches above the ankles bilaterally. Slight tenderness in both calves. Skin. Chronic venous stasis over the lower extremities. The remainder the physical exam is noncontributory. Impression. 1. Acute congestive heart failure. Improved. 2. Acute exacerbation of COPD with bronchospastic disease 3. Pulmonary hypertension likely related to moderate mitral regurgitation. 4. Long history of tobacco abuse 5. History of noncompliance with medical history 6. Mild chronic renal failure 7. High blood pressure 8. History of hyperlipidemia 9. See past history 10. Moderate mitral regurgitation Plan. 1. Singulair 10 mg daily 2. Solu-Medrol 20 mg IV push now and 20 mg IV push every morning 3. Sputum for Gram stain culture and sensitivity 4. Rocephin 1 g daily 5. Doppler venograms of the lower extremities 6. Agree with ventilation therapy 7. Follow-up chest x-ray, BMP and BNP. 8. Mucinex 600 mg p.o. twice daily 9. See orders Home Medications Medication Instructions Recorded Confirmed Type Albuterol Sulfate [Ventolin HFA] 2 puff INH Q6HR PRN 04/23/15 01/20/17 History Aspirin EC Tab 81 mg PO DAILY #30 tablet 09/02/16 01/20/17 Rx Nitroglycerin Sl Tab [Nitrostat] 0.4 mg SL Q5M PRN #100 tablet 09/02/16 Rx Ticagrelor [Brilinta] 90 mg PO BID #60 tablet 09/02/16 01/20/17 Rx Atorvastatin [Lipitor] 40 mg PO BEDTIME 10/15/16 01/20/17 History Carvedilol [Coreg] 6.25 mg PO BID #60 tablet 10/19/16 01/20/17 Rx Nebivolol HCl [Bystolic] 20 mg PO DAILY 01/20/17 01/20/17 History Allergies Allergy/AdvReac Type Severity Reaction Status Date / Time No Known Allergies Allergy Verified 04/23/15 13:07 Exam (Pulmonay) H&P - Constitutional Vitals: Period Temp Pulse Resp BP Sys/Lui Pulse Ox Last 24 Hr 97.9 F-98.8 F 57-91 16-22 139-187/76-91 99-100 Medical,Surgical,& Family Hx - Medical History Cardio: History of: CAD, Hypertension (states takes two different BP meds but doesn't know the name of the other o), [place], PVD, Cardiovascular Problems Neurology: History of: Seizures ("years ago") HEENT: History of: HEENT Problems (cataract surgery bilaterally) Endocrine: History of: Dyslipidemia Rheumatology: History of;: Rheumatoid Arthritis Respiratory: History of: Asthma, COPD (Smoker) No history of: Obstructive Sleep Apnea Genitourinary: History of: Bladder Problem (frequency) Gastrointestinal: History of: Gastrointestinal Cancer Other: History of: Cancer (gastrointestinal) - Surgical History Cardiac Surgeries: Sugical HX of: Cardiac Catheterization (with stent to first diagonal august 2016) Abdominal Surgeries: Surgical HX of: Abdominal Surgery (part of colon removed) - Family History Family History: Reports;: Family Cancer (daughter, eye.), Family Heart Disease ( father, brother,), Family Hypertension (mother, father, brother, sister) - Social History Smoking Status: Current every day smoker Frequency of Alcohol Use: None Type of Drug Use: None Results - Labs CBC & BMP: 01/21/17 06:13 01/21/17 06:13 Quality Measures - Stroke Symptom Onset Unknown: No
[2017-01-21] MEDS: MONTELUKAST 10 MG TABLET PO SCH (19:19)
[2017-01-21] MEDS: cefTRIAXone 1,000 MG in SODIUM CHLORIDE 0.9% 100 ML IV SCH (19:19)
--- NOTE | 2017-01-21 20:01 | Ultrasound Report ---
Indication: Elevated D dimer Duplex scan of the bilateral lower extremity veins Technique: Duplex scan of the bilateral lower extremity veins using B-mode/grayscale imaging and Doppler spectral analysis and color flow Findings: Major venous structures of the bilateral lower extremity demonstrate a normal course and caliber. There is no evidence of deep vein thrombosis. No abnormal intrinsic echogenic lesions are demonstrated in the scanned blood vessels. Veins demonstrate good compressibility with normal color flow study and spectral analysis. Impression: Unremarkable duplex imaging of the bilateral lower extremity veins. No evidence of DVT PROCEDURE INTERPRETED AT [facility] DEPARTMENT OF RADIOLOGY Final Report Signed by: Ethan Santana
[2017-01-21] MEDS: ATORVASTATIN 40 MG TABLET PO SCH (20:35)
[2017-01-21] MEDS: SODIUM CHLORIDE 0.9% 1,000 ML IV SCH (20:43)
[2017-01-21 22:06] LABS: Troponin I Only 0.124 NG/ML (0.00-0.045)
[2017-01-22 05:52] LABS: Basophils % 0.1 % (0.0-0.8); Hematocrit 37.8 VOL% (42.0-52.0); Hemoglobin 12.8 GM/DL (14.0-18.0); Immature Granulocytes % 0.6 %; Immature Granulocytes Absolute 0.07 #; Lymphocytes # 0.6 10*3/uL (1.4-4.0); Lymphocytes % 4.6 % (21.2-54.2); Mean Corpuscular HGB Conc 33.9 GM/DL (32-36); Mean Corpuscular Hemoglobin 30 PG (27-34); Mean Corpuscular Volume 89.8 FL (87-102); Mean Platelet Volume 10.5 FL (9.6-12.0); Monocytes # 0.5 10*3/uL (0.11-0.8); Monocytes % 4.4 % (1.7-12.7); Neutrophils # 11.1 10*3/uL (1.4-7.4); Neutrophils % 90.3 % (38.7-73.9); Platelet Count 191 T/CUMM (130-400); Red Blood Count 4.21 MC/CUMM (3.8-5.5); Red Cell Distribution Width 15.3 % (9.3-17.3); White Blood Count 12.3 T/CUMM (4-12)
[2017-01-22 06:17] LABS: Lymphocytes 5 % (20-55); Segmented Neutrophils 93 % (50-85); Total Cells Counted 100
[2017-01-22 06:18] LABS: Hypochromasia 1+; Microcytosis Slight; Platelet Estimate Adequate
[2017-01-22 06:24] LABS: Calcium 8.2 MG/DL (8.5-10.1); Magnesium 2.2 MG/DL (1.8-2.4); Osmolality,Calculated 288.5 MOS/KG (273-304); Potassium 5.4 MMOL/L (3.5-5.1)
--- NOTE | 2017-01-22 06:52 | EKG Report ---
Stationary ECG Study [facility] Test Date: 01/22/2017 6:52:14 AM Pat Name: SUSI MASCORRO Department: Room: 288 Gender: M Executive Coach: QUINCY : 1930 Requested by: Noreen Childers Order Number: [id number] Reading MD: MARIELLA VANG Intervals [place] Rate: 59 P: 999 [place]: 0 QRS: -83 QRSD: 111 T: 123 QT: 471 QTc: 471 Interpretive Statements ATRIAL FIBRILLATION LEFT ANTERIOR FASCICULAR BLOCK ANTEROLATERAL MYOCARDIAL INFARCTION, PROBABLY RECENT POOR QUALITY TRACING Electronically Signed On 01-23-17 18:01:14 CDT by MARIELLA VANG [email or web address]
--- NOTE | 2017-01-22 08:01 | XRay Report ---
2 view chest. Indication: Congestive heart failure. Comparison: January 21, 2017. The cardiac silhouette is enlarged. The pulmonary vasculature is now normal. The lung johnson are clear. There are small bilateral pleural effusions. Impression: The venous congestion and interstitial edema has resolved, but there is mild residual bilateral pleural effusion. This is improvement. Heart size is stable. PROCEDURE INTERPRETED AT [facility] DEPARTMENT OF RADIOLOGY Final Report Signed by: Dr. Noreen Singh
[2017-01-22] MEDS: CLOPIDOGREL 75 MG TABLET PO SCH (09:13)
[2017-01-22] MEDS: amLODIPine 10 MG TABLET PO SCH (09:13)
[2017-01-22] MEDS: ASPIRIN EC 81 MG TABLET PO SCH (09:13)
[2017-01-22] MEDS: methylPREDNISolone SOD SUC 40 MG/1 ML VIAL IV SCH (09:14)
[2017-01-22] MEDS: PANTOPRAZOLE 40 MG TABLET PO SCH (09:14)
[2017-01-22] MEDS: CHLORTHALIDONE 25 MG TABLET PO SCH (09:14)
[2017-01-22] MEDS: MONTELUKAST 10 MG TABLET PO SCH (09:14)
--- NOTE | 2017-01-22 10:15 | Pulmonology Progress Note ---
Pulmonary - PN: Subj Interval history: Hal Miller, ANP-BC, GNP-BC, acting as scribe for Dr. Alfonzo Almonte Mr. Gibson is an 86-year-old white male who we saw in initial pulmonary consultation on 01/21/2017. At that time, our impressions were: 1. Acute congestive heart failure. Improved. 2. Acute exacerbation of COPD with bronchospastic disease 3. Pulmonary hypertension likely related to moderate mitral regurgitation. 4. Long history of tobacco abuse 5. History of noncompliance with medical history 6. Mild chronic renal failure 7. High blood pressure 8. History of hyperlipidemia 9. See past history 10. Moderate mitral regurgitation 01/22/2017. Patient's chest x-ray today shows that the previously noted heart failure has approximately 95% resolved. His BNP has fallen 1572. Of note, the patient's creatinine has risen further to 2.00 and his potassium is elevated at 5.4. Patient states that he is breathing much better concern initial interaction last night. We did start Singulair and Solu-Medrol last night. He has been better able to mobilize his secretions and on chest exam he has markedly improved breath sounds bilaterally. Doppler venograms done last night were unremarkable and showed no evidence of DVT in either lower extremity. Medications have been reviewed. We made no changes today. Labs been reviewed. White count is 12,300 with 90.3% segs; H&H 12.8/37.8; platelet count 191,000; creatinine has increased to 2.00, BUN 34, sodium 139, potassium 5.4, magnesium 2.2; BNP 1572; repeat free T4 1.39 (note, yesterday free T4 was elevated at 1.69) Exam (Progress Note) - Constitutional Vitals: Period Temp Pulse Resp BP Sys/Lui Pulse Ox Last 24 Hr 96.6 F-98.8 F 53-61 16-20 139-157/72-88 99-100 Exam: Chest... See above Heart no gallop Abdomen is nontender and nondistended; bowel sounds are positive 4 Extremities with nothing to suggest acute deep venous femoral phlebitis; note, Doppler venograms done 02/17/2017 showed no evidence of DVT Psychiatric oriented 3 Neurologic long tract motor function is intact Plan: Continue present treatment. Watch creatinine closely. Follow-up sputum Gram stain and culture when available. Note, thus far this has not been collected. See orders. Results - Labs CBC & BMP: 01/22/17 05:14 01/22/17 05:14
[2017-01-22] MEDS: hydrALAZINE 25 MG TABLET PO SCH ×2 (10:25→21:05)
--- NOTE | 2017-01-22 10:32 | Cardiology Progress Note ---
Assessment and Plan (1) Coronary artery disease Status: Chronic Current Visit: Yes Qualifiers: Coronary Disease-Associated Artery/Lesion type: [place] artery [place] vs. transplanted heart: [place] heart Associated angina: without angina Qualified Code(s): I25.10 - Atherosclerotic heart disease of [place] coronary artery without angina pectoris (2) Hypertension Status: Chronic Assessment and plan: Better but control of blood pressure may have resulted in renal insufficiency Current Visit: Yes (3) Peripheral vascular disease Status: Chronic Current Visit: Yes (4) Acute exacerbation of chronic obstructive airways disease Status: Acute Current Visit: Yes (5) Hypertensive urgency Status: Acute Current Visit: Yes (6) Noncompliance Status: Acute Current Visit: Yes (7) AV block, 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 He is on no AV tita blocking agents at this time he is on Norvasc which can contribute to AV tita blockade but typically does not we will continue to observe. Current Visit: Yes (8) Hyperlipidemia Status: Chronic Current Visit: Yes (9) Renal insufficiency Status: Chronic Assessment and plan: This is slightly worse we will continue to follow. No action at this time. Current Visit: Yes Cardiology - PN: Subj Interval history: Mr. Gibson looks better today and states that he feels better however is my opinion is poor exam is worse creatinine is slightly worse he is on no renal offensive medicines. His potassiums but has had hangover potassium left from the emergency room which I discontinued. I have encouraged Mr. Gibson to get out of bed and get around. No chest pain Exam (Progress Note) - Constitutional Vitals: Period Temp Pulse Resp BP Sys/Lui Pulse Ox Last 24 Hr 96.6 F-98.8 F 53-61 16-20 139-157/72-88 99-100 General appearance: normal weight - Eye Eye exam: Present: EOMI Pupils: Present: MILO - Neck Neck exam: Present: normal inspection - Respiratory Respiratory exam: Present: rhonchi, wheezes - Cardiovascular Cardiovascular exam: Present: regular rate and rhythm - GI/Abdominal GI/Abdominal exam: Present: normal bowel sounds - Back Exam Back exam: Present: normal inspection - Neurological Exam Neurological exam: Present: alert, oriented X3 - Psychiatric Psychiatric exam: Present: normal affect, normal mood - Skin Skin exam: Present: normal color, warm, dry Result/EKG - Labs CBC & BMP: 01/22/17 05:14 01/22/17 05:14 Labs: Laboratory Results - last 24 hr 01/21/17 01/21/17 01/22/17 13:49 21:17 05:14 WBC 12.3 H D RBC 4.21 Hgb 12.8 L Hct 37.8 L MCV 89.8 MCH 30 MCHC 33.9 RDW 15.3 Plt Count 191 MPV 10.5 Neut % (Auto) 90.3 H Lymph % (Auto) 4.6 L [place] % (Auto) 4.4 Eos % (Auto) 0.0 Baso % (Auto) 0.1 Neut # (Auto) 11.1 H Lymph # (Auto) 0.6 L [place] # (Auto) 0.5 Eos # (Auto) 0.0 Baso # (Auto) 0.0 Total Counted 100 Immature Gran % 0.6 Nucleated RBC % 0.0 Immature Gran # 0.07 Segmented Neutrophils 93 H Lymphocytes 5 L Monocytes 2 Nucleated RBCs # 0.00 Platelet Estimate Adequate Hypochromasia 1+ Microcytosis Slight Sodium Potassium Chloride Carbon Dioxide Anion Gap BUN Creatinine GFR Calculation BUN/Creatinine Ratio Glucose Calculated Osmolality Calcium Magnesium Total Creatine Kinase 146 175 CK-MB (CK-2) 4.8 H 4.5 H Troponin I 0.109 H D 0.124 H B-Natriuretic Peptide Free T4 01/22/17 01/22/17 01/22/17 05:14 05:14 05:14 WBC RBC Hgb Hct MCV MCH MCHC RDW Plt Count MPV Neut % (Auto) Lymph % (Auto) [place] % (Auto) Eos % (Auto) Baso % (Auto) Neut # (Auto) Lymph # (Auto) [place] # (Auto) Eos # (Auto) Baso # (Auto) Total Counted Immature Gran % Nucleated RBC % Immature Gran # Segmented Neutrophils Lymphocytes Monocytes Nucleated RBCs # Platelet Estimate Hypochromasia Microcytosis Sodium 139 Potassium 5.4 H Chloride 105 Carbon Dioxide 27 Anion Gap 12.4 BUN 34 H Creatinine 2.00 H GFR Calculation 35 BUN/Creatinine Ratio 17.00 Glucose 176 H Calculated Osmolality 288.5 Calcium 8.2 L Magnesium 2.2 Total Creatine Kinase CK-MB (CK-2) Troponin I B-Natriuretic Peptide 1572 H Free T4 1.39 Quality Measures - Stroke Symptom Onset Unknown: No
[2017-01-22] MEDS: cefTRIAXone 1,000 MG in SODIUM CHLORIDE 0.9% 100 ML IV SCH (18:30)
[2017-01-22] MEDS: ATORVASTATIN 40 MG TABLET PO SCH (21:05)
[2017-01-23 04:39] LABS: Basophils % 0.1 % (0.0-0.8); Hematocrit 36.3 VOL% (42.0-52.0); Hemoglobin 11.9 GM/DL (14.0-18.0); Immature Granulocytes % 0.3 %; Immature Granulocytes Absolute 0.04 #; Lymphocytes # 0.9 10*3/uL (1.4-4.0); Lymphocytes % 7.7 % (21.2-54.2); Mean Corpuscular HGB Conc 32.8 GM/DL (32-36); Mean Corpuscular Hemoglobin 31 PG (27-34); Mean Corpuscular Volume 93.3 FL (87-102); Mean Platelet Volume 10.4 FL (9.6-12.0); Monocytes # 1.2 10*3/uL (0.11-0.8); Neutrophils # 9.4 10*3/uL (1.4-7.4); Neutrophils % 81.9 % (38.7-73.9); Platelet Count 166 T/CUMM (130-400); Red Blood Count 3.89 MC/CUMM (3.8-5.5); Red Cell Distribution Width 15.3 % (9.3-17.3); White Blood Count 11.5 T/CUMM (4-12)
[2017-01-23 05:17] LABS: Calcium 8.1 MG/DL (8.5-10.1); Magnesium 2.1 MG/DL (1.8-2.4); Osmolality,Calculated 291.7 MOS/KG (273-304); Potassium 4.7 MMOL/L (3.5-5.1)
[2017-01-23] MEDS: hydrALAZINE 25 MG TABLET PO SCH (09:16)
[2017-01-23] MEDS: amLODIPine 10 MG TABLET PO SCH (09:16)
[2017-01-23] MEDS: ASPIRIN EC 81 MG TABLET PO SCH (09:16)
[2017-01-23] MEDS: CHLORTHALIDONE 25 MG TABLET PO SCH (09:16)
[2017-01-23] MEDS: PANTOPRAZOLE 40 MG TABLET PO SCH (09:16)
[2017-01-23] MEDS: MONTELUKAST 10 MG TABLET PO SCH (09:16)
[2017-01-23] MEDS: CLOPIDOGREL 75 MG TABLET PO SCH (09:16)
[2017-01-23] MEDS: methylPREDNISolone SOD SUC 40 MG/1 ML VIAL IV SCH (09:17)
--- NOTE | 2017-01-23 10:29 | Discharge Summary ---
Hospital Course - Hospital Course Hospital Course: Mr. Gibson was admitted after receiving horrible news that his niece had passed unexpectedly. He came in with hypertensive emergency with evidence of end organ damage and heart failure with blood pressure exceeding 200/100. His blood pressure was controlled. He also had a significant amount of COPD type changes and was seen in consultation with pulmonary medicine. He has renal insufficiency his creatinine was 1.8 on admission is 2.0 the date of discharge. His blood pressures have come under good control. He was ruled out for myocardial infarction. Due to issues with compliance we attempted to make his regimen more simple and discontinued his Brilinta and started clopidogrel after an oral load. His blood pressure was dramatically better he was feeling better. He continued to have significant amount of wheezing pulmonary thought that he had maximally benefited from hospitalization and thought it was stable from their standpoint to discharge. His cardiac status had dramatically improved his blood pressure was better and he diuresed after his blood pressure was controlled. His creatinine had been stable at 2.0 for 2 days. He appeared to be at his baseline cardiac status. The patient had transient complete heart block on the night of admission. He was on 2 beta blockers on admission he was on both Bystolic and carvedilol these were stopped and his heart block improved and resolved. We will have the patient wear an event monitor before follow-up with Dr. Steen. We will have him follow-up with her in 2 weeks with Chem-7 and CBC with magnesium. - Time spent with patient Time with patient DS: Greater than 30 minutes Diagnosis - Discharge Diagnosis (1) Coronary artery disease Status: Chronic (2) Hypertension Status: Chronic (3) Peripheral vascular disease Status: Chronic (4) Acute exacerbation of chronic obstructive airways disease Status: Acute (5) Hypertensive urgency Status: Acute (6) Noncompliance Status: Acute (7) AV block, 3rd degree Status: Acute (8) Hyperlipidemia Status: Chronic (9) Renal insufficiency Status: Chronic Specialty Discharge - Follow Up or Referrals Follow up with: Layla Steen MD [Physician] - 2 Weeks (cbc, chem7 and Mg) Discharge Plan - Discharge Data Disposition: Disch To Home/Self Care Condition at Discharge: Stable Discharge Diet: heart healthy, low salt diet Activity: resume usual activities as tolerated Hygiene: no restrictions, may shower, may tub bathe, keep area(s) dry, other Weight Bearing at Discharge: full weight bearing Driving: no restrictions Contact your physician if you experience:: fever over 101, Difficulty voiding, Redness or swelling, Nausea/Vomiting, Shortness of breath, Bleeding, pain uncontrolled by pain medications - Discharge Medications New Clopidogrel [Plavix] 75 mg PO DAILY #30 tablet Famotidine Tab [Pepcid Tab] 20 mg PO BID #60 tablet amLODIPine [Norvasc] 10 mg PO DAILY #30 tablet predniSONE [Prednisone] 10 mg PO DIRECTED #20 tab.ds.pk hydrALAZINE TAB [Apresoline Tab] 25 mg PO BID #30 tablet Continue Albuterol Sulfate [Ventolin HFA] 2 puff INH Q6HR PRN PRN Reason: Shortness Of Breath Aspirin EC Tab 81 mg PO DAILY #30 tablet Atorvastatin [Lipitor] 40 mg PO BEDTIME Nitroglycerin Sl Tab [Nitrostat] 0.4 mg SL Q5M PRN #100 tablet PRN Reason: Chest Pain Discontinued Carvedilol [Coreg] 6.25 mg PO BID #60 tablet Ticagrelor [Brilinta] 90 mg PO BID #60 tablet Nebivolol HCl [Bystolic] 20 mg PO DAILY - Follow Up or Referral - Forms/Instructions Exam - Constitutional Vitals: Period Temp Pulse Resp BP Sys/Lui Pulse Ox Last 24 Hr 97.1 F-98.8 F 51-61 16-20 113-147/65-80 97-100 General appearance: normal weight - Head Head exam: Present: normal inspection - Eye Eye exam: Present: other (Dense arcus) Pupils: Present: MILO - ENT ENT exam: Present: normal exam, other (Poor dentition) - Respiratory Respiratory exam: Present: rhonchi, wheezes. Absent: rales - Cardiovascular Cardiovascular exam: Present: regular rate and rhythm - GI/Abdominal GI/Abdominal exam: Present: normal bowel sounds - Extremities Exam Extremities exam: Present: normal inspection - Back Exam Back exam: Present: normal inspection - Neurological Exam Neurological exam: Present: alert, oriented X3 - Psychiatric Psychiatric exam: Present: normal affect, normal mood - Skin Skin exam: Present: normal color Discharge Results Procedures and tests throughout hospitalization: Pending Orders 01/21/17 Sputum Culture and Gram Stain Routine 01/24/17 04:00 BMP w/ Mg [Basic Metabolic Panel w/Mg] IN AM BNP [B-Type Natriuretic Peptide] IN AM Basic Metabolic Panel IN AM CBC [Comp Blood Count Auto Diff] IN AM Comp Blood Count Auto Diff IN AM Labs on day of discharge: Labs from last 24 hours 01/23/17 01/23/17 01/23/17 04:14 04:14 04:14 WBC 11.5 RBC 3.89 Hgb 11.9 L Hct 36.3 L MCV 93.3 MCH 31 MCHC 32.8 RDW 15.3 Plt Count 166 MPV 10.4 Neut % (Auto) 81.9 H Lymph % (Auto) 7.7 L [place] % (Auto) 10.0 Eos % (Auto) 0.0 Baso % (Auto) 0.1 Neut # (Auto) 9.4 H Lymph # (Auto) 0.9 L [place] # (Auto) 1.2 H Eos # (Auto) 0.0 Baso # (Auto) 0.0 Immature Gran % 0.3 Nucleated RBC % 0.0 Immature Gran # 0.04 Nucleated RBCs # 0.00 Sodium 138 Potassium 4.7 Chloride 104 Carbon Dioxide 26 Anion Gap 12.7 BUN 44 H D Creatinine 2.00 H GFR Calculation 35 BUN/Creatinine Ratio 22.00 H Glucose 203 H Calculated Osmolality 291.7 Calcium 8.1 L Magnesium 2.1 B-Natriuretic Peptide 1382 H DS: Provider Date of admission: 01/20/17 18:43 Primary care physician: . No PCP Attending physician on admission: Laura Lees DO Consults: 01/20/17 21:21 Consult to Case Mgmt/Social Srvs [CONS] Routine Reason for Case Mgmt/Social Srvs: Rehab 01/21/17 10:07 Consult to Physician [CONS] Routine Comment: COPD, has never seen pulmonary before. Consulting Provider: Alfonzo Almonte Consult to Specialist Group: Pulmonology When should Consulting Provider be notified: Now Person Notified: PATRICK Date Notified: 01/21/17 Time Notified: 11:25 Discharging clinician: Laura Lees DO Expected date of discharge: 01/23/17
--- NOTE | 2017-01-23 10:44 | Pulmonology Progress Note ---
Pulmonary - PN: Subj Interval history: Mr. Gibson is an 86-year-old white male who we saw in initial pulmonary consultation on 01/21/2017. At that time, our impressions were: 1. Acute congestive heart failure. Improved. 2. Acute exacerbation of COPD with bronchospastic disease 3. Pulmonary hypertension likely related to moderate mitral regurgitation. 4. Long history of tobacco abuse 5. History of noncompliance with medical history 6. Mild chronic renal failure 7. High blood pressure 8. History of hyperlipidemia 9. See past history 10. Moderate mitral regurgitation 01/22/2017. Patient's chest x-ray today shows that the previously noted heart failure has approximately 95% resolved. His BNP has fallen 1572. Of note, the patient's creatinine has risen further to 2.00 and his potassium is elevated at 5.4. Patient states that he is breathing much better concern initial interaction last night. We did start Singulair and Solu-Medrol last night. He has been better able to mobilize his secretions and on chest exam he has markedly improved breath sounds bilaterally. Doppler venograms done last night were unremarkable and showed no evidence of DVT in either lower extremity. Medications have been reviewed. We made no changes today. Labs been reviewed. White count is 12,300 with 90.3% segs; H&H 12.8/37.8; platelet count 191,000; creatinine has increased to 2.00, BUN 34, sodium 139, potassium 5.4, magnesium 2.2; BNP 1572; repeat free T4 1.39 (note, yesterday free T4 was elevated at 1.69) 01/23/2017. Patient looks much better today. He is sitting up in a chair and seems to be breathing well. He still has a little bit of cough and is beginning to mobilize a tiny amount of sputum. His shortness of breath is markedly improved. His orthopnea and PND and lower extremity edema have completely resolved with treatment of his congestive heart failure. He had acute bronchitis or an acute exacerbation of COPD. Several different organisms were seen on Gram stains. None of the patient's cultures have grown. His large airway wheezes improved significantly. Creatinine is stable at 2.0 with a BUN of 44. Electrolytes are normal. White count 11,500 with 82 segs and 8 lymphs. H&H is stable. Nitrated peptide remains elevated 1382. Repeat T4 was normal TSH was normal Physical exam. Vital signs. See below. Afebrile. Psychiatric. Oriented 3 Neurologic. Cranial nerves are intact with decreased hearing acuity. Long track motor functions intact. Face is symmetrical. Lips and tongue are normal. Neck. Symmetrical. No meningismus. Lymphatics. No submandibular cervical supraclavicular or epitrochlear adenopathy Chest. Mild coarse large airway wheeze with some congestion and mild prolongation of expiration Heart. Lateral PMI Abdomen. Nontender. Positive bowel sounds Lower extremities. Edema has resolved. The remainder of the physical exam is negative. Plan. 1. I agree with your plans to discharge. 2. I suggested that we continue Singulair 10 mg daily patient has been on methylprednisolone 20 mg IV push once a day. We could go with 20 mg of prednisone daily for 5 days then 10 mg of prednisone daily for another 5 days and then 10 mg every other day for 10 doses. Patient has been treated with Rocephin. He could go home on 1 of several antibiotics. Keflex 500 4 times daily for 10 days would work. Amoxicillin 500 3 times daily for 10 days would work. Levaquin 250 daily for 10 days with work. 3. I will sign off. Please reconsult as needed Exam (Progress Note) - Constitutional Vitals: Period Temp Pulse Resp BP Sys/Lui Pulse Ox Last 24 Hr 97.1 F-98.8 F 51-61 16-20 113-147/65-80 97-100 Results - Labs CBC & BMP: 01/23/17 04:14 01/23/17 04:14 Specialty Discharge - Follow Up or Referrals Follow up with: Layla Steen MD [Physician] - 2 Weeks (cbc, chem7 and Mg)
[2017-01-23 12:18] VITALS: BP 134/65
== END 2017-01-23 15:05 | disposition home or self-care (01) | DRG 304 ==
LOC: N.ED 15:54 → N.EDINP 18:43 → N.TELEN 20:25
PROVIDERS: ADMIT Internal Medicine Cardiovascular Disease; ATTEND Internal Medicine Cardiovascular Disease

== ENCOUNTER 2017-06-03 17:41 | Inpatient (IN) ==
[2017-06-03] MEDS ORDERED: ASPIRIN 325 MG TABLET PO STA (18:19)
[2017-06-03] MEDS ORDERED: MORPHINE 2 MG/1 ML SYRINGE IV STA (18:19)
[2017-06-03] MEDS ORDERED: ONDANSETRON 4 MG/2 ML VIAL IV STA (18:19)
[2017-06-03] MEDS ORDERED: FUROSEMIDE 100 MG/10 ML VIAL IV STA (18:25)
[2017-06-03] MEDS ORDERED: methylPREDNISolone SOD SUC 125 MG/2 ML VIAL IV STA (18:25)
[2017-06-03] MEDS ORDERED: NITROGLYCERIN 2% OINT 1 INCH/GM PACK TOP STA (18:25)
[2017-06-03] MEDS ORDERED: ALBUTEROL 2.5 MG/3 ML NEB RESP TX SCH ×2 (18:30→21:41)
--- NOTE | 2017-06-03 18:30 | EKG Report ---
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
[2017-06-03 18:36] LABS: Basophils % 0.5 % (0.0-0.8); Eosinophils % 0.8 % (0.00-10.9); Hematocrit 39.7 VOL% (42.0-52.0); Hemoglobin 13.4 GM/DL (14.0-18.0); Immature Granulocytes % 0.3 %; Immature Granulocytes Absolute 0.01 #; Lymphocytes # 1.3 10*3/uL (1.4-4.0); Lymphocytes % 33.2 % (21.2-54.2); Mean Corpuscular HGB Conc 33.8 GM/DL (32-36); Mean Corpuscular Hemoglobin 31 PG (27-34); Mean Corpuscular Volume 91.5 FL (87-102); Mean Platelet Volume 9.9 FL (9.6-12.0); Monocytes # 0.6 10*3/uL (0.11-0.8); Monocytes % 15.2 % (1.7-12.7); Platelet Count 176 T/CUMM (130-400); Red Blood Count 4.34 MC/CUMM (3.8-5.5); Red Cell Distribution Width 14.6 % (9.3-17.3)
[2017-06-03] MEDS ORDERED: methylPREDNISolone SOD SUC 125 MG/2 ML VIAL ONE (18:39)
[2017-06-03] MEDS ORDERED: FUROSEMIDE 100 MG/10 ML VIAL ONE (18:39)
[2017-06-03] MEDS ORDERED: NITROGLYCERIN 2% OINT 1 INCH/GM PACK TOP ONE (18:39)
[2017-06-03] MEDS ORDERED: ASPIRIN 325 MG TABLET ONE (18:39)
[2017-06-03 18:47] LABS: ABG Base Excess -2.2 MMOL/L (-2.5-2.5); ABG HCO3 22.6 MMOL/L (20-26); ABG Oxygen Saturation 97.8 % (95-100); ABG PCO2 33.1 MM HG (35-48); ABG PH 7.419 (7.35-7.45); ABG TCO2 18.7 MMOL/L (23-27)
[2017-06-03 18:48] LABS: INR 1.2; PT Patient Result 12.8 SECS
--- NOTE | 2017-06-03 18:51 | Emergency Department Note ---
Gianna Patricia Emily, am scribing for, and in the presence of, Dakotah Lipscomb MD 18: 32. Deisi Patricia Charles R, MD, personally performed the services described in this documentation, ascribed by Nellie Katz in my presence, and it is both accurate and complete 851 . Arrival - Arrival Chief Complaint: Shortness of Breath Stated Complaint: SOB ED Nursing Triage Note: c/o shortness of breath onset last pm. +dyspnea on exertion. +dry cough. +headache. +congestion noted. Mode of Arrival: Wheelchair Limitations: No Limitations Source: Patient Time Seen by Provider: 06/03/17 18:03 - History of Present Illness HPI Narrative: Pt is a 87 y/o male who came to ED with with c/o SOB, VIVAS, dry cough, and congestion that started last night. Pt states he does have orthopnea and BOWER. Pt is on nasal cannula and BP elevated at 197/115 in ED. Pt denies chest pain or any other pain in ED. Pt admits to smoking, in which has decreased intake. He's PCP is Dr. Steen. PMHx of CAD, HI, PVD, HTN, HLD, COPD, Asthma. Onset (ago): day(s) Consistency: constant Severity: moderate Severity scale (1-10): 7 Quality: fullness Allergies/Adverse Reactions: Allergies Allergy/AdvReac Type Severity Reaction Status Date / Time No Known Allergies Allergy Verified 06/03/17 17:46 Home Medications: Home Medications Medication Instructions Recorded Confirmed Type Albuterol Sulfate [Ventolin HFA] 2 puff INH Q6HR PRN 04/23/15 06/03/17 History Nitroglycerin Sl Tab [Nitrostat] 0.4 mg SL Q5M PRN #100 tablet 09/02/16 Rx Atorvastatin [Lipitor] 40 mg PO BEDTIME 10/15/16 06/03/17 History Aspirin EC Tab 81 mg PO QAM 06/03/17 06/03/17 History Carvedilol [Carvedilol] 12.5 mg PO BID 06/03/17 06/03/17 History Clopidogrel [Plavix] 75 mg PO QAM 06/03/17 06/03/17 History Furosemide [Furosemide] 20 mg PO DAILY PRN 06/03/17 06/03/17 History Nebivolol HCl [Bystolic] 20 mg PO BID 06/03/17 06/03/17 History Ticagrelor [Brilinta] 90 mg PO BID 06/03/17 06/03/17 History amLODIPine [Norvasc] 10 mg PO QAM 06/03/17 06/03/17 History hydrALAZINE TAB [Apresoline Tab] 100 mg PO TID 06/03/17 06/03/17 History Review of System - Review of System 12 point system: reviewed and no additional remarkable complaints except as stated - Review of System Constitutional: Absent: chills, fever Respiratory: Present: cough (dry), respiratory distress (SOB), wheezing Cardiovascular: Present: dyspnea on exertion, orthopnea. Absent: chest pain, syncope Gastrointestinal: Absent: abdominal pain, nausea, vomiting Musculoskeletal: Absent: arm pain, neck pain Skin: Absent: rash Neurological: Present: headache Medical,Surgical,& Family Hx - Medical History Cardio: History of: CAD, Hypertension, HI, PVD, Cardiovascular Problems Neurology: History of: Seizures ("years ago") HEENT: History of: HEENT Problems (cataract surgery bilaterally) Endocrine: History of: Dyslipidemia Rheumatology: History of;: Rheumatoid Arthritis Respiratory: History of: Asthma, COPD (Smoker) No history of: Obstructive Sleep Apnea Genitourinary: History of: Bladder Problem (frequency) Gastrointestinal: History of: Gastrointestinal Cancer Other: History of: Cancer (gastrointestinal) - Surgical History Cardiac Surgeries: Sugical HX of: Cardiac Catheterization (with stent to first diagonal august 2016) Abdominal Surgeries: Surgical HX of: Abdominal Surgery (part of colon removed) - Family History Family History: Reports;: Family Cancer (daughter, eye.), Family Heart Disease ( father, brother,), Family Hypertension (mother, father, brother, sister) - Social History Smoking Status: Current every day smoker Frequency of Alcohol Use: None Type of Drug Use: None Exam Vital Signs: Vital Signs Temperature 97.9 F 06/03/17 17:43 Pulse Rate 60 06/03/17 18:53 Respiratory Rate 24 06/03/17 18:53 Blood Pressure 201/108 06/03/17 18:53 O2 Sat by Pulse Oximetry 98 06/03/17 17:43 - General General appearance: alert, in no apparent distress, other (body odor due to poor hygiene) - Head Head exam: Present: atraumatic, normocephalic - Eye Eye exam: Present: PERRL, EOMI - ENT ENT exam: Present: mucous membranes moist. Absent: mucous membranes dry - Neck Neck exam: Present: full ROM, trachea midline, other (increased JVD distention) . Absent: tenderness - Chest Chest inspection: Present: symmetric chest wall rise. Absent: tenderness - Respiratory Respiratory exam: Present: rales (bilateral), respiratory distress (mild), wheezes. Absent: normal lung sounds bilaterally (decreased breath sounds), accessory muscle use - Cardiovascular Cardiovascular exam: Present: bradycardia, normal heart sounds - Extremities Exam Extremities exam: Present: full ROM, pedal edema (+2 in bilateral lower extremities). Absent: tenderness - Neurological Exam Neurological exam: Present: alert, oriented X3, CN II-XII intact. Absent: motor sensory deficit - Psychiatric Psychiatric exam: Present: normal affect, normal mood - Skin Skin exam: Present: warm, dry Course - Consultations Consultation #1: Hospitalist will admit patient Time: 19:57 Procedures - Central Line Placement Left IJ Consent Obtained: verbal consent Time Out Performed: Yes Patient Placed on Monitor/Pulse Ox: Yes MD Prep: gloves Central Line Prep: Chlorhexidine scrub, sterile drapes applied Ultrasound Used for Placement: No Central Line Lumen Inserted: single (20 gauge used) Post Procedure: good blood return, all ports aspirated, flushed, capped, sterile dressing applied Post Procedure X-Ray: tip of catheter in good position, no pneumothorax seen Patient Tolerated Procedure: well, no complications Complications: none Results - Labs CBC & BMP: 06/03/17 18:23 06/03/17 18:23 Lab Results: I have reviewed the patients labs Labs: Laboratory Tests 06/03/17 06/03/17 06/03/17 18:19 18:23 18:23 WBC 4.0 RBC 4.34 Hgb 13.4 L Hct 39.7 L Plt Count 176 [place] % (Auto) 15.2 H Lymph # (Auto) 1.3 L INR 1.2 PT Patient/Control Mix 12.8 ABG pH 7.419 ABG pCO2 33.1 L ABG pO2 104.0 H ABG HCO3 22.6 ABG Total CO2 18.7 L ABG O2 Saturation 97.8 ABG Base Excess -2.2 Laboratory Tests 06/03/17 06/03/17 18:19 18:23 ABG pH 7.419 ABG pCO2 33.1 L ABG pO2 104.0 H ABG HCO3 22.6 ABG Total CO2 18.7 L ABG O2 Saturation 97.8 ABG Base Excess -2.2 Sodium 142 Potassium 4.4 Chloride 109 H Carbon Dioxide 26 BUN 20 H Creatinine 1.90 H GFR Calculation 37 Glucose 132 H Calculated Osmolality 287.1 AST 39 H ALT 66 H Alkaline Phosphatase 105 Troponin I 0.091 H Laboratory Tests 06/03/17 06/03/17 18:23 18:23 Lactic Acid 2.3 H B-Natriuretic Peptide 4600 H - EKG EKG results: interpreted by ERMD (SINUS RHYTHM WITH PROLONGED [place] INTERVAL WITH OCCASIONAL SUPRAVENTRICULAR; Left anterior fascicular block; anterolateral myocardial infraction of indeterminate age), sinus rhythm (58) - Diagnostic Findings Procedure: Chest x-ray: report reviewed by me (Cardiomegaly and evidence of CHF with mild bibasilar pulmonary edema.) Critical Care Time Critical Care Time: Yes Total Critical Care Time: 60 Disposition Clinical Impression: SOB (shortness of breath), Hypertensive urgency, Coronary artery disease, Acute exacerbation of chronic obstructive airways disease, CHF (congestive heart failure), Renal insufficiency, Acute dyspnea Case discussed with: patient, patient's family Disposition: Still a Patient Time of Disposition: 19:58
[2017-06-03] MEDS ORDERED: ONDANSETRON 4 MG/2 ML VIAL ONE (18:56)
[2017-06-03] MEDS ORDERED: MORPHINE 2 MG/1 ML SYRINGE ONE (18:56)
[2017-06-03 18:57] LABS: Albumin 3.8 G/DL (3.4-5.0); Bilirubin,Total 0.7 MG/DL (0.2-1.0); Calcium 9.2 MG/DL (8.5-10.1); Magnesium 2.2 MG/DL (1.8-2.4); Osmolality,Calculated 287.1 MOS/KG (273-304); Potassium 4.4 MMOL/L (3.5-5.1); Total Protein 7.2 G/DL (6.4-8.3)
[2017-06-03 19:06] LABS: Troponin I Only 0.091 NG/ML (0.00-0.045)
--- NOTE | 2017-06-03 19:21 | XRay Report ---
History: Shortness of breath Date: 06/03/2017 Study: Chest x-ray AP portable Comparison exam: April 24, 2017 There is mild cardiomegaly. The pulmonary vasculature is slightly prominent. The mediastinal contours are unchanged. There is some hazy pulmonary edema in the lower lungs. There is trace right-sided pleural effusion. Osseous structures are similar. Impression: Cardiomegaly and evidence of CHF with mild bibasilar pulmonary edema PROCEDURE INTERPRETED AT [facility] DEPARTMENT OF RADIOLOGY Final Report Signed by: Dr. Jen Bashir
[2017-06-03] MEDS ORDERED: hydrALAZINE 20 MG/1 ML VIAL ONE (20:01)
[2017-06-03] MEDS ORDERED: hydrALAZINE 20 MG/1 ML VIAL IV STA (20:01)
[2017-06-03] MEDS ORDERED: FUROSEMIDE 20 MG/2 ML VIAL IV STA (20:01)
[2017-06-03] MEDS ORDERED: FUROSEMIDE 20 MG/2 ML VIAL ONE (20:02)
--- NOTE | 2017-06-03 20:25 | Hospitalist History & Physical ---
Addendum entered and electronically signed by Amando Mcintosh NP 06/04/17 06:00: [place] add CHF exacerbation to the Assessment /DX list also. Original Note: <Amando Mcintosh - Last Filed: 06/03/17 23:11> Assessment and Plan (1) Acute exacerbation of chronic obstructive pulmonary disease (COPD) Status: Acute Current Visit: Yes (2) AV block, Mobitz II Status: Acute Current Visit: Yes (3) Coronary artery disease Status: Chronic Current Visit: Yes Qualifiers: Coronary Disease-Associated Artery/Lesion type: [place] artery [place] vs. transplanted heart: [place] heart Associated angina: without angina Qualified Code(s): I25.10 - Atherosclerotic heart disease of [place] coronary artery without angina pectoris (4) Hypertensive urgency Status: Acute Current Visit: Yes (5) Chronic kidney disease, stage 3 Status: Acute Current Visit: Yes (6) Hyperglycemia Status: Acute Assessment and plan: Plan: 1. Will admit to CCU for critical care monitoring and cardiac monitoring. Consult cardiology for Acute on chronic CHF exacerbation and Mobitz type II AV block. IV diuresis already initiated, will continue Lasix 40mg BID. Assess electrolytes and replace as needed. Resume cardiac/antihypertensive and home medications including Plavix, including betablocker, calcium channel susie, HCTZ, and Vasodilator. Will defer ordering echo to Cardiology. Will utilize cardene drip if the patient remains hypertensive despite prn medications and po antihypertensives. 2. Pulmonary consulted for COPD exacerbation. Titrate oxygen to maintain o2 sats greater than 90%. Steroids were initiated as well as antibiotic therapy, Rocephin and Azithomycin. Theophylline was initiated per Dr. Bernstein. ABG as needed for change in mental status or respiratory distress. 3. Will add insulin sliding scale for hyperglycemia and accu cks AC and HS. HGB a1c pending. 4. Reassess creatinine in am. Strict I&O continue Lasix, limit intake. Replace magensium and electrolyte protocol as needed. 5. Protonix for PUD px and Lovenox for DVT px as well as SCD's. Current Visit: Yes History of Present Illness History of present illness: EKG revealed 2ng degree AVB type II. Chest xray revealed cardiomegaly with bibasilar pulmonary edema. Labs revealed BUN of 20, Creatinine of 190 and Tropnonin of 0.091 with BNP of 4600. He was admitted to the Hospitalist service for ICU for critical care monitoring. In the ED he received hydralazine 10mg and a total of 80mg of lasix. Home Medications Medication Instructions Recorded Confirmed Type Albuterol Sulfate [Ventolin HFA] 2 puff INH Q6HR PRN 04/23/15 06/03/17 History Nitroglycerin Sl Tab [Nitrostat] 0.4 mg SL Q5M PRN #100 tablet 09/02/16 Rx Atorvastatin [Lipitor] 40 mg PO BEDTIME 10/15/16 06/03/17 History Aspirin EC Tab 81 mg PO QAM 06/03/17 06/03/17 History Carvedilol [Carvedilol] 12.5 mg PO BID 06/03/17 06/03/17 History Clopidogrel [Plavix] 75 mg PO QAM 06/03/17 06/03/17 History Furosemide [Furosemide] 20 mg PO DAILY PRN 06/03/17 06/03/17 History Nebivolol HCl [Bystolic] 20 mg PO BID 06/03/17 06/03/17 History Ticagrelor [Brilinta] 90 mg PO BID 06/03/17 06/03/17 History amLODIPine [Norvasc] 10 mg PO QAM 06/03/17 06/03/17 History hydrALAZINE TAB [Apresoline Tab] 100 mg PO TID 06/03/17 06/03/17 History Allergies Allergy/AdvReac Type Severity Reaction Status Date / Time No Known Allergies Allergy Verified 06/03/17 17:46 Medical,Surgical,& Family Hx - Medical History Psychological: No history of: Anxiety Disorders, Depression, Psychiatric Problems HEENT: History of: HEENT Problems (cataract surgery bilaterally; His thinks he has had Carotid stents ) Genitourinary: History of: Bladder Problem Hematology: No history of: Blood Transfusion Reaction, Bleeding Problems, Clotting Problems - Surgical History Cardiac Surgeries: Sugical HX of: Cardiac Catheterization - Constitutional Constitutional: Present: weakness - Gastrointestinal Gastrointestinal: Absent: abdominal pain, diarrhea Exam - Constitutional Vitals: Period Temp Pulse Resp BP Sys/Lui Pulse Ox Last 24 Hr 97.9 F-97.9 F 60-60 24-24 184-201/55-108 98 - Neck Neck exam: Present: other (positive for jugular edema) - Respiratory Respiratory exam: Present: decreased breath sounds, rales, wheezes - Cardiovascular Cardiovascular exam: Present: JVD, regular rate and rhythm - GI/Abdominal GI/Abdominal exam: Present: normal bowel sounds, other (midline scar present with no obvious hernia) - Extremities Exam Extremities exam: Present: normal capillary refill, edema - Neurological Exam Neurological exam: Present: alert, oriented X3, reflexes normal - Psychiatric Psychiatric exam: Present: normal affect, normal mood - Skin Skin exam: Present: normal color, warm, dry Results - Labs CBC & BMP: 06/03/17 18:23 06/03/17 18:23 - Diagnostic Findings Procedure: Chest x-ray: image reviewed by me <Shelbie Bernstein - Last Filed: 06/04/17 13:06> Assessment and Plan (1) AV block, Mobitz II Status: Acute Assessment and plan: no beta susie or calcium channel susie, consult cardiology Current Visit: Yes (2) Acute exacerbation of chronic obstructive airways disease Status: Acute Assessment and plan: duoneb every 4 hours, solumedrol, azithromycin and rocephin, theophylline and pulmonary consult Current Visit: Yes (3) CHF (congestive heart failure) Status: Acute Assessment and plan: lasix 40 mg IV bid, echo, cardiology consult Current Visit: Yes (4) Hyperglycemia Status: Acute Assessment and plan: Dont agree with above. hgb A1c pending Current Visit: Yes (5) Chronic kidney disease, stage 3 Status: Chronic Assessment and plan: monitor Current Visit: Yes History of Present Illness Chief complaint: sob History of present illness: Mr. Gibson is a 87 year old male with worsening SOB this morning. Patient's PMD is dr. Steen. He reports worsening lower extremity edema but no chest pain. He continues to smoke a PPK a day. Reports wheezing and coughing but no productive cough or fever. Initial blood pressure elevated at 197/115 in ED. PMHx of CAD, PA, PVD, HTN, HLD, COPD, Asthma. Medical,Surgical,& Family Hx - Medical History Cardio: History of: CAD, Hypertension, PA, PVD, Cardiovascular Problems Neurology: History of: Cerebrovascular Accident, Seizures ("years ago") HEENT: History of: HEENT Problems (cataract surgery bilaterally) Endocrine: History of: Dyslipidemia Rheumatology: History of;: Rheumatoid Arthritis Respiratory: History of: Asthma, COPD (Smoker) No history of: Obstructive Sleep Apnea Genitourinary: History of: Bladder Problem (frequency) Gastrointestinal: History of: Gastrointestinal Cancer Other: History of: Cancer (gastrointestinal) - Surgical History Cardiac Surgeries: Sugical HX of: Cardiac Catheterization (with stent to first diagonal august 2016) Abdominal Surgeries: Surgical HX of: Abdominal Surgery (part of colon removed) - Family History Family History: Reports;: Family Cancer (daughter, eye.), Family Heart Disease ( father, brother,), Family Hypertension (mother, father, brother, sister) - Social History Smoking Status: Current every day smoker Frequency of Alcohol Use: None Type of Drug Use: None Marital Status: Lives With:: Spouse Functional capacity: independent ambulation - Constitutional Constitutional: Present: fatigue. Absent: fever(s) - Cardiovascular Cardiovascular: Present: dyspnea, dyspnea on exertion, edema. Absent: chest pain at rest, chest pain with activity - Respiratory Respiratory: Present: cough, dyspnea, dyspnea on exertion, wheezing. Absent: change in phlegm color - Gastrointestinal Gastrointestinal: Present: vomiting. Absent: nausea - Genitourinary Genitourinary: Absent: difficulty urinating, dysuria - Psychiatric Psychiatric: Absent: anxiety, depression - Endocrine Endocrine: Present: fatigue. Absent: cold intolerance, heat intolerance Exam - Constitutional Vitals: Period Temp Pulse Resp BP Sys/Lui Pulse Ox Last 24 Hr 97.9 F-97.9 F 60-60 24-24 184-201/55-108 98 General appearance: normal weight, severe distress - Head Head exam: Present: normal inspection, normocephalic - Eye Eye exam: Present: EOMI. Absent: scleral icterus Pupils: Present: MILO, normal accommodation - ENT ENT exam: Present: normal exam, normal external ear exam - Neck Neck exam: Absent: lymphadenopathy, thyromegaly - Respiratory Respiratory exam: Present: decreased breath sounds, prolonged expiratory phase, rales, wheezes - Cardiovascular Cardiovascular exam: Present: regular rate and rhythm. Absent: systolic murmur - GI/Abdominal GI/Abdominal exam: Present: normal bowel sounds, soft. Absent: tenderness - Extremities Exam Extremities exam: Present: normal capillary refill, edema - Neurological Exam Neurological exam: Present: alert, oriented X3, reflexes normal. Absent: motor sensory deficit - Psychiatric Psychiatric exam: Present: normal affect, normal mood - Skin Skin exam: Present: normal color, warm, dry Results - Labs CBC & BMP: 06/04/17 04:56 06/04/17 04:56 Lab Results: I have reviewed the past 24 hour labs - EKG EKG shows: sinus rhythm (second degree av block ) - Diagnostic Findings Procedure: Chest x-ray: report reviewed by me (chf)
[2017-06-03] MEDS ORDERED: ACETAMINOPHEN 325 MG TABLET PO PRN (21:41)
[2017-06-03] MEDS ORDERED: MAGNESIUM SULF RIDER 2 GM in PREMIX 1 EACH IV PRN (21:41)
[2017-06-03] MEDS ORDERED: ONDANSETRON 4 MG/2 ML VIAL IV PRN (21:41)
[2017-06-03] MEDS ORDERED: AMINOPHYLLINE 250 MG in SODIUM CHLORIDE 0.9% 100 ML IV ONE (21:41)
[2017-06-03] MEDS ORDERED: MAGNESIUM SULF RIDER 4 GM in PREMIX 1 EACH IV PRN (21:41)
--- NOTE | 2017-06-03 21:54 | EKG Report ---
Stationary ECG Study [facility] Test Date: 06/03/2017 9:52:35 PM Pat Name: SUSI MASCORRO Department: Room: 122 Gender: M Pharmaceutical Service Representative: ALAINA : 1930 Requested by: Shelbie Madsen Order Number: [id number] Reading MD: CARMEN MARIN Intervals [place] Rate: 65 P: 100 [place]: 282 QRS: -66 QRSD: 114 T: 75 QT: 392 QTc: 403 Interpretive Statements SINUS RHYTHM WITH PROLONGED [place] INTERVAL WITH OCCASIONAL SUPRAVENTRICULAR PREMATURE COMPLEXES LEFT ANTERIOR FASCICULAR BLOCK POSSIBLE ANTERIOR MYOCARDIAL INFARCTION, OF INDETERMINATE AGE Electronically Signed On 06-04-17 10:36:41 CDT by CARMEN MARIN [email or web address]
[2017-06-03] MEDS: hydrALAZINE 25 MG TABLET PO SCH (22:18)
[2017-06-03] MEDS: methylPREDNISolone SOD SUC 40 MG/1 ML VIAL IV SCH (22:18)
[2017-06-03] MEDS: ATORVASTATIN 40 MG TABLET PO SCH (22:18)
[2017-06-03] MEDS: hydroCHLOROthiazide 25 MG TABLET PO SCH (22:18)
[2017-06-03] MEDS: ENOXAPARIN 30 MG/0.3 ML SYRINGE SUBCUT SCH (22:18)
[2017-06-03 22:22] LABS: Apearance,Urine CLEAR (Clear); Bacteria,Urine Occasional /HPF (Few); Bilirubin,Urine Negative (Negative); Blood, Urine Negative (Negative); Glucose,Urine (UA) Negative (Negative); Hyaline Casts,Urine 7 /LPF (0-3); Ketones,Urine Negative (Negative); Mucus,Urine Occasional /LPF (Occasional); Nitrite,Urine Negative (Negative); Protein,Urine Negative; RBC,Urine 5 /HPF (0-4); Squamous Epithelial Cell,Urine Occasional /HPF (0-10); Urine Color Straw (Yellow); Urine Specific Gravity 1.005 (1.001-1.035); Urine Urobilinogen < 2.0 EU/DL (0.2-1.0); WBC,Urine 5 /HPF (0-6)
[2017-06-03] MEDS: cefTRIAXone 1,000 MG in SODIUM CHLORIDE 0.9% 100 ML IV SCH (22:27)
[2017-06-03] MEDS ORDERED: ALBUTEROL 2.5 MG/3 ML NEB RESP TX PRN (22:32)
[2017-06-03] MEDS: AZITHROMYCIN INJ 500 MG in SODIUM CHLORIDE 0.9% 250 ML IV SCH (23:00)
[2017-06-03] MEDS: ALBUTEROL/IPRATROPIUM 3 ML NEB RESP TX SCH ×2 (23:06→23:30)
[2017-06-03] MEDS: AMINOPHYLLINE 500 MG in SODIUM CHLORIDE 0.9% 480 ML IV SCH (23:21)
[2017-06-04] MEDS: BUDESONIDE/FORMOTEROL 160-4.5 INHALER 6 GM INH SCH ×3 (01:12→23:30)
[2017-06-04] MEDS: ALBUTEROL/IPRATROPIUM 3 ML NEB RESP TX SCH ×6 (02:45→22:41)
[2017-06-04] MEDS: methylPREDNISolone SOD SUC 40 MG/1 ML VIAL IV SCH ×4 (02:56→21:21)
[2017-06-04 05:35] LABS: Hematocrit 39.2 VOL% (42.0-52.0); Hemoglobin 13.1 GM/DL (14.0-18.0); Immature Granulocytes % 0.5 %; Immature Granulocytes Absolute 0.02 #; Lymphocytes # 0.3 10*3/uL (1.4-4.0); Lymphocytes % 7.2 % (21.2-54.2); Mean Corpuscular HGB Conc 33.4 GM/DL (32-36); Mean Corpuscular Hemoglobin 31 PG (27-34); Mean Platelet Volume 10.1 FL (9.6-12.0); Monocytes % 1.1 % (1.7-12.7); Neutrophils # 3.4 10*3/uL (1.4-7.4); Neutrophils % 91.2 % (38.7-73.9); Platelet Count 184 T/CUMM (130-400); Red Blood Count 4.26 MC/CUMM (3.8-5.5); Red Cell Distribution Width 14.8 % (9.3-17.3); White Blood Count 3.8 T/CUMM (4-12)
[2017-06-04 06:21] LABS: Calcium 8.8 MG/DL (8.5-10.1); Osmolality,Calculated 286.4 MOS/KG (273-304); Potassium 4.1 MMOL/L (3.5-5.1); Risk Ratio 2.63; VLDL CHOLESTEROL 12.6 MG/DL
[2017-06-04 07:22] LABS: Hypochromasia 1+; Lymphocytes 3 % (20-55); Platelet Estimate Normal; Segmented Neutrophils 95 % (50-85); Total Cells Counted 100
[2017-06-04 07:23] LABS: Burr Cells Slight; Giant Platelets Few
[2017-06-04] MEDS: hydroCHLOROthiazide 25 MG TABLET PO SCH (09:07)
[2017-06-04] MEDS: PANTOPRAZOLE 40 MG TABLET PO SCH (09:07)
[2017-06-04] MEDS: amLODIPine 10 MG TABLET PO SCH (09:07)
[2017-06-04] MEDS: ASPIRIN CHEW 81 MG TABLET PO SCH (09:07)
[2017-06-04] MEDS: CLOPIDOGREL 75 MG TABLET PO SCH (09:07)
[2017-06-04] MEDS: FUROSEMIDE 40 MG/4 ML VIAL IV SCH ×2 (09:08→16:46)
[2017-06-04] MEDS: hydrALAZINE 25 MG TABLET PO SCH ×3 (09:08→21:21)
--- NOTE | 2017-06-04 11:27 | ECHO Report ---
Neftali Gibson Exam Date: 06/04/2017 08:03 Referring Physician: Technologist: Diana Morales RDCS Age: 87 Ht (in): 63 Wt (lb): 166 Gender: M Exam Location: [facility] Echo Indications: Acute respiratory failure, unspecified whether with hypoxia or hypercapnia, Chronic kidney disease, stage 3 (moderate), Edema, unspecified, Nicotine dependence, cigarettes, uncomplicated, Peripheral vascular disease, unspecified, Essential (primary) hypertension, COPD, Chronic fatigue, unspecified, Dyspnea, unspecified, BP: 155 / 76 HR: 67 Rhythm: Sinus Technical Quality: IMPRESSIONS Normal left ventricular cavity size. Moderate left ventricular hypertrophy. Left ventricular ejection fraction is estimated at 65 %. The right ventricle is normal in size and function. Moderately increased right atrial size. Moderately increased left atrial size. Mildly thickened mitral valve. Mild-moderate mitral valve regurgitation. Moderate aortic valve calcification. No aortic valve stenosis. No aortic valve regurgitation. Morphologically normal tricuspid valve. Mild to moderate tricuspid valve regurgitation. Tricuspid regurgitation velocities suggest a PAP of 59 mmHg. Morphologically normal pulmonic valve. Trace pulmonary valve regurgitation. Normal pericardium without effusion. Normal ascending aorta dimension. MEASUREMENTS (Male / Female) Normal Values 2D ECHO LV Diastolic Diameter PLAX 4.3 cm 4.2 - 5.9 / 3.9 - 5.3 cm LV Systolic Diameter PLAX 2.6 cm LV Fractional Shortening PLAX 39.3 % IVS Diastolic Thickness 1.9 cm 0.6 - 1.0 / 0.6 - 0.9 cm LVPW Diastolic Thickness 1.6 cm 0.6 - 1.0 / 0.6 - 0.9 cm RV Internal Dim ED PLAX 2.5 cm Aortic Root Diameter 3.6 cm LA Systolic Diameter LX 4.6 cm 3.0 - 4.0 / 2.7 - 3.8 cm DOPPLER TR Peak Velocity 349.0 cm/s TR Peak Gradient 48.7 mmHg FINDINGS Left Ventricle Normal left ventricular cavity size. Moderate left ventricular hypertrophy. Left ventricular ejection fraction is estimated at 65 %. Right Ventricle The right ventricle is normal in size and function. Right Atrium Moderately increased right atrial size. Left Atrium Moderately increased left atrial size. Mitral Valve Mildly thickened mitral valve. Mild-moderate mitral valve regurgitation. Aortic Valve Moderate aortic valve calcification. No aortic valve stenosis. No aortic valve regurgitation. Tricuspid Valve Morphologically normal tricuspid valve. Mild to moderate tricuspid valve regurgitation. Tricuspid regurgitation velocities suggest a PAP of 59 mmHg. Pulmonic Valve Morphologically normal pulmonic valve. Trace pulmonary valve regurgitation. Pericardium Normal pericardium without effusion. Aorta Normal ascending aorta dimension. Clifton Simon MD (Electronically Signed) Final Date: 04 June 2017 11:26
--- NOTE | 2017-06-04 13:04 | Pulmonology Consult Note ---
History of Present Illness Chief complaint: Shortness of breath History of present illness: Mr. Gibson is a 87 year old black male has a history of both chronic heart disease and COPD. He was in the hospital in January and Dr. Almonte saw him then. He has known coronary artery disease and has had stents. He also has mitral insufficiency. He is a chronic smoker and has significant COPD. He came in yesterday with worsening shortness of breath and apparently was very tight and wheezing. His x-ray also looks like he may have some heart failure. He has been monitored in the CCU. He is feeling better today and says he is breathing better. He does have a history of hypertension, hyperlipidemia, and chronic renal insufficiency. He had a good left ventricular function on previous echo with diastolic dysfunction and moderate mitral insufficiency. Home Medications Medication Instructions Recorded Confirmed Type Albuterol Sulfate [Ventolin HFA] 2 puff INH Q6HR PRN 04/23/15 06/03/17 History Nitroglycerin Sl Tab [Nitrostat] 0.4 mg SL Q5M PRN #100 tablet 09/02/16 Rx Atorvastatin [Lipitor] 40 mg PO BEDTIME 10/15/16 06/03/17 History Aspirin EC Tab 81 mg PO QAM 06/03/17 06/03/17 History Carvedilol [Carvedilol] 12.5 mg PO BID 06/03/17 06/03/17 History Clopidogrel [Plavix] 75 mg PO QAM 06/03/17 06/03/17 History Furosemide [Furosemide] 20 mg PO DAILY PRN 06/03/17 06/03/17 History Nebivolol HCl [Bystolic] 20 mg PO BID 06/03/17 06/03/17 History Ticagrelor [Brilinta] 90 mg PO BID 06/03/17 06/03/17 History amLODIPine [Norvasc] 10 mg PO QAM 06/03/17 06/03/17 History hydrALAZINE TAB [Apresoline Tab] 100 mg PO TID 06/03/17 06/03/17 History Allergies Allergy/AdvReac Type Severity Reaction Status Date / Time No Known Allergies Allergy Verified 06/03/17 17:46 - Constitutional Constitutional: Present: fatigue. Absent: chills, fever(s), weight loss - EENT Eyes: Absent: loss of vision Ears: Absent: decreased hearing Nose, mouth and throat: Absent: dysphagia, headache(s), sinus pressure - Cardiovascular Cardiovascular: Present: dyspnea, edema, orthopnea. Absent: chest pain with activity - Respiratory Respiratory: Present: cough, dyspnea, wheezing. Absent: change in phlegm color - Gastrointestinal Gastrointestinal: Absent: abdominal pain, change in bowel habits, dysphagia, nausea, vomiting - Genitourinary Genitourinary: Present: urinary frequency. Absent: difficulty urinating, dysuria - Musculoskeletal Musculoskeletal: Absent: arthralgias, myalgias - Neurological Neurological: Absent: abnormal speech, focal weakness, paresthesias - Psychiatric Psychiatric: Present: anxiety Exam (Pulmon) H&P - Constitutional Vitals: Period Temp Pulse Resp BP Sys/Lui Pulse Ox Last 24 Hr 97.6 F-98.8 F 60-82 16-24 116-201/55-108 95-100 General appearance: normal weight, mild distress (The patient looks reasonably comfortable now but still has some shortness of breath) - Head Head exam: Present: normal inspection, normocephalic - Eye Eye exam: Present: EOMI. Absent: scleral icterus Pupils: Present: MILO - ENT ENT exam: Present: normal exam - Neck Neck exam: Present: other (He does have increased JVD). Absent: lymphadenopathy , thyromegaly - Respiratory Respiratory exam: Present: accessory muscle use, prolonged expiratory phase, wheezes - Cardiovascular Cardiovascular exam: Present: irregular rhythm, JVD, systolic murmur, tachycardia - GI/Abdominal GI/Abdominal exam: Present: normal bowel sounds, soft. Absent: organomegaly, tenderness - Extremities Exam Extremities exam: Present: edema. Absent: calf tenderness - Neurological Exam Neurological exam: Present: alert, oriented X3, CN II-XII intact - Psychiatric Psychiatric exam: Present: normal affect - Skin Skin exam: Present: warm, dry Medical,Surgical,& Family Hx - Medical History Cardio: History of: CAD, Hypertension, MO, PVD, Cardiovascular Problems Psychological: No history of: Anxiety Disorders, Depression, Psychiatric Problems Neurology: History of: Cerebrovascular Accident (a few months ago), Seizures ( "years ago") HEENT: History of: HEENT Problems (cataract surgery bilaterally; His thinks he has had Carotid stents ) Endocrine: History of: Dyslipidemia No history of: Diabetes Mellitus (IDDM), Diabetes Mellitus (NIDDM) Rheumatology: History of;: Rheumatoid Arthritis Respiratory: History of: Asthma, COPD (Smoker) No history of: Obstructive Sleep Apnea Genitourinary: History of: Bladder Problem Gastrointestinal: History of: Gastrointestinal Cancer (colon cancer, part of colon removed) Hematology: No history of: Blood Transfusion Reaction, Bleeding Problems, Clotting Problems Other: History of: Cancer (gastrointestinal) - Surgical History Cardiac Surgeries: Sugical HX of: Cardiac Catheterization Thoracic Surgeries: Patient denies;: Lobectomy Neurologic Surgeries: Patient denies: Neurologic Surgery Abdominal Surgeries: Surgical HX of: Abdominal Surgery (part of colon removed) - Family History Family History: Reports;: Family Cancer (daughter, eye.), Family Heart Disease ( father, brother,), Family Hypertension (mother, father, brother, sister) - Social History Smoking Status: Current every day smoker Frequency of Alcohol Use: None Type of Drug Use: None Results - Labs CBC & BMP: 06/04/17 04:56 06/04/17 04:56 - Diagnostic Findings Procedure: Chest x-ray: image reviewed by me, report reviewed by me (Chest x- ray shows mild cardiomegaly and mild overload. He does have COPD changes.)
[2017-06-04] MEDS: INSULIN REGULAR 100 UNIT/ML SUBCUT SCH ×3 (13:10→21:21)
--- NOTE | 2017-06-04 13:42 | Ultrasound Report ---
History: Lower extremity pain and edema Date: 06/04/2017 Study: Bilateral lower extremity color-flow venous Doppler study Comparison exam: January 21, 2017 Color Doppler, wave form analysis, and compression analysis of the deep veins of both lower extremities from the common femoral vein level through the popliteal vein level shows that the veins are readily compressible. There is no abnormal intraluminal material to suggest thrombus. Waveform analysis is unremarkable. Ultrasound images were captured and archived Impression: No evidence of acute DVT PROCEDURE INTERPRETED AT [facility] DEPARTMENT OF RADIOLOGY Final Report Signed by: Dr. Jen Bashir
--- NOTE | 2017-06-04 14:48 | Hospitalist Progress Note ---
Assessment and Plan (1) AV block, Mobitz II Status: Acute Assessment and plan: Holding beta susie and calcium channel susie Cardiology consulted Current Visit: Yes (2) Chronic kidney disease, stage 3 Status: Chronic Assessment and plan: Currently around his baseline Monitor closely Current Visit: Yes (3) Hyperglycemia Status: Acute Assessment and plan: SSI Current Visit: Yes (4) Acute exacerbation of chronic obstructive pulmonary disease (COPD) Status: Acute Assessment and plan: Duonebs, steroids Azithromycin and Rocephin Current Visit: Yes Hospitalist: Subjective Interval history: No acute events overnight. Patient sitting up in bed eating breakfast this morning. He reports that his breathing is much better. He complains of RLE pain which started today. Transfer to the floor today Exam - Constitutional Vitals: Period Temp Pulse Resp BP Sys/Lui Pulse Ox Last 24 Hr 97.6 F-98.8 F 60-82 16-24 116-201/55-108 95-100 Results - Labs CBC & BMP: 06/04/17 04:56 06/04/17 04:56
[2017-06-04] MEDS: NEBIVOLOL 5 MG TABLET PO SCH (14:58)
--- NOTE | 2017-06-04 15:27 | Cardiology Consult Note ---
I, Taylor Perez RN, am scribing for, and in the presence of, Get Gomez MD 15 :25. Assessment and Plan - Time spent with patient Time spent with patient: Greater than 30 minutes (1) Arrhythmia Status: Acute Assessment and plan: 87-year-old BM, PMHx HTN, HLD, PVD, CKD, severe COPD with chronic smoking, CAD and acute NH in 2016 with PCI of 1st diagonal. Ischemic cardiomyopathy, EF 45- 50% with moderate MR. He is medically noncompliant, and has experienced transient complete AVB after sitting with hypertensive urgency and was noted to be on 2 beta-blockers. Now admitted with COPD exacerbation, volume overload, and tele monitor suspicious for AV block. Echo with EF 65%, severe pulm HTN with PAP 59 mmHg. Reviewed EKGs and telemetry. Sinus rhythm, PACs, I did not see evidence of high -grade AV block. Moderate pulmonary hypertension, preserved systolic function on echo. -Start Bystolic 5 mg PO daily. -Volume overload. Continue IV diuresis -HTN - elevated. Currently on hydralazine 25 mg PO TID. May add Imdur if HTN/ pulm congestion not improving -COPD- severe. Watch closely for atrial arrhythmia with IV theophylline infusion -CAD- demand ischemia likely due to COPD exacerb, DCHF exacerb. Continue ASA, Plavix -HLD- LDL is 73. atorvastatin 40 mg PO nightly Current Visit: No (2) Acute exacerbation of chronic obstructive pulmonary disease (COPD) Status: Acute Assessment and plan: SEE PLAN OF CARE LISTED ABOVE. Current Visit: Yes (3) Chronic kidney disease, stage 3 Status: Chronic Assessment and plan: SEE PLAN OF CARE LISTED ABOVE. Current Visit: Yes (4) Coronary artery disease Status: Chronic Assessment and plan: SEE PLAN OF CARE LISTED ABOVE. Current Visit: Yes Qualifiers: Coronary Disease-Associated Artery/Lesion type: [place] artery [place] vs. transplanted heart: [place] heart Associated angina: without angina Qualified Code(s): I25.10 - Atherosclerotic heart disease of [place] coronary artery without angina pectoris (5) Hyperlipidemia Status: Chronic Assessment and plan: SEE PLAN OF CARE LISTED ABOVE. Current Visit: No (6) Hypertension Status: Chronic Assessment and plan: SEE PLAN OF CARE LISTED ABOVE. Current Visit: No (7) Peripheral vascular disease Status: Chronic Assessment and plan: SEE PLAN OF CARE LISTED ABOVE. Current Visit: No (8) Ischemic cardiomyopathy Status: Chronic Assessment and plan: SEE PLAN OF CARE LISTED ABOVE. Current Visit: Yes (9) Medical non-compliance Status: Chronic Assessment and plan: SEE PLAN OF CARE LISTED ABOVE. Current Visit: Yes (10) Moderate mitral regurgitation Status: Chronic Assessment and plan: SEE PLAN OF CARE LISTED ABOVE. Current Visit: Yes (11) Smoker Status: Chronic Assessment and plan: SEE PLAN OF CARE LISTED ABOVE. Current Visit: Yes History of Present Illness - Data of Consult Patient: known to practice within the last 3 years Consult date: 06/04/17 Requesting Physician: Shelbie Bernstein - Consult Narrative Reason for consult: AV block History of present illness: [employer] INS[employer]OR: DR. STEEN Mr. Gbison, 87 year old BM, PMHx hypertension, dyslipidemia, PVD (abnormal ABIs, referred for CTA but did not attend), and he is a chronic heavy smoker. ST elevation NH in August 2016 with PCI of 100% occluded first diagonal using drug-eluting stents x2 and has an ischemic cardiomyopathy with EF 45-50%, moderate MR. Also extremely noncompliant with medication and care.. Was most recently hospitalized in January with hypertensive urgency and transient complete heart block, was noted to be on 2 beta-blockers at time of admission, and both were discontinued with resolution of heart block at discharge. Labs seen by Dr. Steen in clinic on March 05. He had lower extremity edema for 3 weeks and was given Lasix to take as needed. Blood pressure and heart rate nor overall well controlled. There was confusion about medications he was taking as his medication list did not have diastolic, but family reported that he may be taking it. Patient is also just completed a 30 day event monitor which did not show any arrhythmia. Patient admitted to [facility] on the evening of after presenting with progressive worsening of shortness of breath since earlier in the morning. Elevated BP 201/100, BNP 4600, troponin 0 0.140, and chest x-ray with cardiomegaly and bibasilar pulmonary edema. Treated with IV Lasix, hydralazine, IV steroids, Aminophyllin infusion. He is being treated for COPD exacerbation. Cardiology is asked to see for acute on chronic CHF exacerbation and 2nd degree AVB type II. Cardiac home meds have been continued. He is not receiving beta blockers though. In speaking with him, he is not certain if he is still taking them or not. Cardiac monitoring strips from yesterday evening while in ER suspicious for [place] II AVB. This morning upon exam, he is in sinus rhythm, first-degree AVB, with PACs multifocal PVC, HR 70s. BP 160/70. He is having significant wheezing and cough. Reports he is ready to go home. Denies shortness of breath or chest discomfort today. Reports he has been wheezing for a couple of weeks now, but yesterday morning he felt his dyspnea had significantly worsened. Continued on with his day, and says that yesterday evening, he is not 1 of his 's cigarettes outside to smoke, and after a few puffs, could not breathe, had some dizziness, "felt funny in the back of the head." No associated syncope, vision changes, N/V, chest discomfort. Denies recent fever or chills. Serial troponins have remained trivial and peaked at 0.111. LDL 73. Creatinine elevated, 2.2. Hemoglobin A1c 6.7. Echo being obtained this morning and will be reviewed. CC: Olivia Jordan MD - Home Medications and Allergies Home Medications: Home Medications Medication Instructions Recorded Confirmed Type Albuterol Sulfate [Ventolin HFA] 2 puff INH Q6HR PRN 04/23/15 06/03/17 History Nitroglycerin Sl Tab [Nitrostat] 0.4 mg SL Q5M PRN #100 tablet 09/02/16 Rx Atorvastatin [Lipitor] 40 mg PO BEDTIME 10/15/16 06/03/17 History Aspirin EC Tab 81 mg PO QAM 06/03/17 06/03/17 History Carvedilol [Carvedilol] 12.5 mg PO BID 06/03/17 06/03/17 History Clopidogrel [Plavix] 75 mg PO QAM 06/03/17 06/03/17 History Furosemide [Furosemide] 20 mg PO DAILY PRN 06/03/17 06/03/17 History Nebivolol HCl [Bystolic] 20 mg PO BID 06/03/17 06/03/17 History Ticagrelor [Brilinta] 90 mg PO BID 06/03/17 06/03/17 History amLODIPine [Norvasc] 10 mg PO QAM 09/13/17 09/13/17 History hydrALAZINE TAB [Apresoline Tab] 100 mg PO TID 06/03/17 06/03/17 History Allergies/Adverse Reactions: Allergies Allergy/AdvReac Type Severity Reaction Status Date / Time No Known Allergies Allergy Verified 06/03/17 17:46 - Constitutional Constitutional: Absent: chills, fatigue, fever(s), increased appetite, stops breathing during sleep, weakness, weight gain, weight loss - EENT Eyes: Absent: blurry vision Ears: Absent: decreased hearing Nose, mouth and throat: Absent: dysphagia, epistaxis, nasal congestion, tongue swelling, vertigo - Cardiovascular Cardiovascular: Present: dyspnea, dyspnea on exertion, edema (1+ BLEs), palpitations. Absent: chest pain at rest, chest pain with activity, diaphoresis , radiating jaw, neck or arm pain, lightheadedness, orthopnea, PND - Respiratory Respiratory: Present: cough, dyspnea, dyspnea on exertion, wheezing. Absent: hemoptysis, pain on inspiration, change in phlegm color - Gastrointestinal Gastrointestinal: Absent: abdominal pain, constipation, diarrhea, dysphagia, early satiety, heartburn, hematemesis, hematochezia, melena, nausea, vomiting, jaundice - Genitourinary Genitourinary: Absent: difficulty urinating, dysuria, flank pain, hematuria - Musculoskeletal Musculoskeletal: Absent: arthralgias, myalgias - Neurological Neurological: Absent: abnormal gait, confusion, dizziness, syncope, tremor(s) - Psychiatric Psychiatric: Absent: anxiety, depression - Endocrine Endocrine: Absent: cold intolerance, heat intolerance - Hematologic/Lymphatic Hematologic/Lymphatic: Absent: easy bleeding, easy bruising Medical,Surgical,& Family Hx - Medical History Cardio: History of: CAD, Hypertension, NH, PVD, Cardiovascular Problems Psychological: No history of: Anxiety Disorders, Depression, Psychiatric Problems Neurology: History of: Cerebrovascular Accident (a few months ago), Seizures ( "years ago") HEENT: History of: HEENT Problems (cataract surgery bilaterally; His thinks he has had Carotid stents ) Endocrine: History of: Dyslipidemia No history of: Diabetes Mellitus (IDDM), Diabetes Mellitus (NIDDM), Thyroid Disorder Rheumatology: History of;: Rheumatoid Arthritis Respiratory: History of: Asthma, COPD (Smoker) No history of: Obstructive Sleep Apnea Renal: History of: Renal Problems Genitourinary: History of: Bladder Problem Gastrointestinal: History of: Gastrointestinal Cancer (colon cancer, part of colon removed) No history of: GERD Hematology: History of: Anemia No history of: Blood Transfusion Reaction, Bleeding Problems, Clotting Problems Other: History of: Cancer (gastrointestinal) - Surgical History Cardiac Surgeries: Sugical HX of: Cardiac Catheterization Thoracic Surgeries: Patient denies;: Lobectomy Neurologic Surgeries: Patient denies: Neurologic Surgery Abdominal Surgeries: Surgical HX of: Abdominal Surgery (part of colon removed) - Family History Family History: Reports;: Family Cancer (daughter, eye.), Family Heart Disease ( father, brother,), Family Hypertension (mother, father, brother, sister) - Social History Smoking Status: Current every day smoker Time spent discussing smoking cessation with patient: 3 to 10 minutes Frequency of Alcohol Use: None Type of Drug Use: None Marital Status: Lives With:: Spouse Physical Examination Vital Signs Temp Pulse Resp BP Pulse Ox 97.9 F 60 24 201/99 98 06/03/17 17:43 06/03/17 17:43 06/03/17 17:43 06/03/17 17:43 06/03/17 17:43 General: Present: No Apparent Distress, Other (disheveled) HEENT: Present: PERRL, Mucus Membranes Dry. Absent: Jaundice, Pallor Neck: Present: Supple Neck, Midline Trachea, JVD/HJR, No Masses, No Bruit Cardiac: Present: Irregularly Regular, Systolic Murmur. Absent: Tachycardia, Bradycardia Lungs: Present: Bibasilar Rales, Wheezes (throughout), Oxygen (2L/NC), Other ( prolonged expiratory phase) Neuro: Present: Grossly Intact. Absent: Numbness, Tingling, Weakness, Resting Tremor, Essential Tremor Abdomen: Present: Soft, Active Bowel Sounds, No Masses, No Pulsations/Bruits. Absent: Ascites, Tender, Firm, Distended Skin: Present: Clear. Absent: Rash, Suspicious Lesions Musculoskeletal: Present: Fluid Collection Extremities: Present: Normal Upper Extr. Pulses (2+), Normal Lower Extr. Pulses (1-2+ bilaterally), Edema (1+ edema BLEs), Clubbing, Capillary Refill (normal), Other (warm,dry). Absent: Cyanosis Result/EKG - Labs CBC & BMP: 06/04/17 04:56 06/04/17 04:56 Lab Results: I have reviewed the past 24 hour labs Labs: Laboratory Results - last 24 hr 06/03/17 06/03/17 06/03/17 18:19 18:23 18:23 WBC 4.0 RBC 4.34 Hgb 13.4 L Hct 39.7 L MCV 91.5 MCH 31 MCHC 33.8 RDW 14.6 Plt Count 176 MPV 9.9 Neut % (Auto) 50.0 Lymph % (Auto) 33.2 [place] % (Auto) 15.2 H Eos % (Auto) 0.8 Baso % (Auto) 0.5 Neut # (Auto) 2.0 Lymph # (Auto) 1.3 L [place] # (Auto) 0.6 Eos # (Auto) 0.0 Baso # (Auto) 0.0 Total Counted Immature Gran % 0.3 Nucleated RBC % 0.0 Immature Gran # 0.01 Segmented Neutrophils Lymphocytes Monocytes Nucleated RBCs # 0.00 Platelet Estimate Giant Platelets Immature Plt Fraction 0.0 Hypochromasia Adams Cells INR 1.2 PT Patient/Control Mix 12.8 ABG pH 7.419 ABG pCO2 33.1 L ABG pO2 104.0 H ABG HCO3 22.6 ABG Total CO2 18.7 L ABG O2 Saturation 97.8 ABG Base Excess -2.2 Sodium Potassium Chloride Carbon Dioxide Anion Gap BUN Creatinine GFR Calculation BUN/Creatinine Ratio Glucose Hemoglobin A1c Calculated Osmolality Lactic Acid Calcium Magnesium Total Bilirubin AST ALT Alkaline Phosphatase Troponin I B-Natriuretic Peptide Total Protein Albumin Globulin Albumin/Globulin Ratio Triglycerides Cholesterol LDL Cholesterol VLDL Cholesterol HDL Cholesterol Heart Disease Risk Ratio Free T4 TSH 3rd Generation Urine Color Urine Appearance Urine pH Ur Specific [place] Urine Protein Urine Glucose (UA) Urine Ketones Urine Blood Urine Nitrate Urine Bilirubin Urine Urobilinogen Urine Leukocytes Urine RBC Urine WBC Ur Squamous Epith Cells Urine Bacteria Hyaline Casts Urine Mucus Ur Culture Indicated? 06/03/17 06/03/17 06/03/17 18:23 18:23 18:23 WBC RBC Hgb Hct MCV MCH MCHC RDW Plt Count MPV Neut % (Auto) Lymph % (Auto) [place] % (Auto) Eos % (Auto) Baso % (Auto) Neut # (Auto) Lymph # (Auto) [place] # (Auto) Eos # (Auto) Baso # (Auto) Total Counted Immature Gran % Nucleated RBC % Immature Gran # Segmented Neutrophils Lymphocytes Monocytes Nucleated RBCs # Platelet Estimate Giant Platelets Immature Plt Fraction Hypochromasia Adams Cells INR PT Patient/Control Mix ABG pH ABG pCO2 ABG pO2 ABG HCO3 ABG Total CO2 ABG O2 Saturation ABG Base Excess Sodium 142 Potassium 4.4 Chloride 109 H Carbon Dioxide 26 Anion Gap 11.4 BUN 20 H Creatinine 1.90 H GFR Calculation 37 BUN/Creatinine Ratio 10.00 Glucose 132 H Hemoglobin A1c Calculated Osmolality 287.1 Lactic Acid 2.3 H Calcium 9.2 Magnesium 2.2 Total Bilirubin 0.70 AST 39 H ALT 66 H Alkaline Phosphatase 105 Troponin I 0.091 H B-Natriuretic Peptide 4600 H Total Protein 7.2 Albumin 3.8 Globulin 3.4 Albumin/Globulin Ratio 1.1 Triglycerides Cholesterol LDL Cholesterol VLDL Cholesterol HDL Cholesterol Heart Disease Risk Ratio Free T4 TSH 3rd Generation Urine Color Urine Appearance Urine pH Ur Specific [place] Urine Protein Urine Glucose (UA) Urine Ketones Urine Blood Urine Nitrate Urine Bilirubin Urine Urobilinogen Urine Leukocytes Urine RBC Urine WBC Ur Squamous Epith Cells Urine Bacteria Hyaline Casts Urine Mucus Ur Culture Indicated? 06/03/17 06/03/17 06/03/17 21:56 21:56 21:56 WBC RBC Hgb Hct MCV MCH MCHC RDW Plt Count MPV Neut % (Auto) Lymph % (Auto) [place] % (Auto) Eos % (Auto) Baso % (Auto) Neut # (Auto) Lymph # (Auto) [place] # (Auto) Eos # (Auto) Baso # (Auto) Total Counted Immature Gran % Nucleated RBC % Immature Gran # Segmented Neutrophils Lymphocytes Monocytes Nucleated RBCs # Platelet Estimate Giant Platelets Immature Plt Fraction Hypochromasia Mt Cells INR PT Patient/Control Mix ABG pH ABG pCO2 ABG pO2 ABG HCO3 ABG Total CO2 ABG O2 Saturation ABG Base Excess Sodium Potassium Chloride Carbon Dioxide Anion Gap BUN Creatinine GFR Calculation BUN/Creatinine Ratio Glucose Hemoglobin A1c Calculated Osmolality Lactic Acid Calcium Magnesium 2.1 Total Bilirubin AST ALT Alkaline Phosphatase Troponin I B-Natriuretic Peptide Total Protein Albumin Globulin Albumin/Globulin Ratio Triglycerides Cholesterol LDL Cholesterol VLDL Cholesterol HDL Cholesterol Heart Disease Risk Ratio Free T4 1.96 H TSH 3rd Generation 1.430 Urine Color Urine Appearance Urine pH Ur Specific [place] Urine Protein Urine Glucose (UA) Urine Ketones Urine Blood Urine Nitrate Urine Bilirubin Urine Urobilinogen Urine Leukocytes Urine RBC Urine WBC Ur Squamous Epith Cells Urine Bacteria Hyaline Casts Urine Mucus Ur Culture Indicated? 06/03/17 06/03/17 06/04/17 21:56 22:00 01:16 WBC RBC Hgb Hct MCV MCH MCHC RDW Plt Count MPV Neut % (Auto) Lymph % (Auto) [place] % (Auto) Eos % (Auto) Baso % (Auto) Neut # (Auto) Lymph # (Auto) [place] # (Auto) Eos # (Auto) Baso # (Auto) Total Counted Immature Gran % Nucleated RBC % Immature Gran # Segmented Neutrophils Lymphocytes Monocytes Nucleated RBCs # Platelet Estimate Giant Platelets Immature Plt Fraction Hypochromasia Mt Cells INR PT Patient/Control Mix ABG pH ABG pCO2 ABG pO2 ABG HCO3 ABG Total CO2 ABG O2 Saturation ABG Base Excess Sodium Potassium Chloride Carbon Dioxide Anion Gap BUN Creatinine GFR Calculation BUN/Creatinine Ratio Glucose Hemoglobin A1c Calculated Osmolality Lactic Acid Calcium Magnesium Total Bilirubin AST ALT Alkaline Phosphatase Troponin I 0.111 H D 0.101 H B-Natriuretic Peptide Total Protein Albumin Globulin Albumin/Globulin Ratio Triglycerides Cholesterol LDL Cholesterol VLDL Cholesterol HDL Cholesterol Heart Disease Risk Ratio Free T4 TSH 3rd Generation Urine Color Straw Urine Appearance Clear Urine pH 5.0 Ur Specific [place] 1.005 Urine Protein Negative Urine Glucose (UA) Negative Urine Ketones Negative Urine Blood Negative Urine Nitrate Negative Urine Bilirubin Negative Urine Urobilinogen < 2.0 H Urine Leukocytes Negative Urine RBC 5 Urine WBC 5 Ur Squamous Epith Cells Occasional Urine Bacteria Occasional Hyaline Casts 7 Urine Mucus Occasional Ur Culture Indicated? Not indicated 06/04/17 06/04/17 06/04/17 04:56 04:56 04:56 WBC 3.8 L RBC 4.26 Hgb 13.1 L Hct 39.2 L MCV 92.0 MCH 31 MCHC 33.4 RDW 14.8 Plt Count 184 MPV 10.1 Neut % (Auto) 91.2 H Lymph % (Auto) 7.2 L [place] % (Auto) 1.1 L Eos % (Auto) 0.0 Baso % (Auto) 0.0 Neut # (Auto) 3.4 Lymph # (Auto) 0.3 L [place] # (Auto) 0.0 L Eos # (Auto) 0.0 Baso # (Auto) 0.0 Total Counted 100 Immature Gran % 0.5 Nucleated RBC % 0.0 Immature Gran # 0.02 Segmented Neutrophils 95 H Lymphocytes 3 L Monocytes 2 Nucleated RBCs # 0.00 Platelet Estimate Normal Giant Platelets Few Immature Plt Fraction 0.0 Hypochromasia 1+ Mt Cells Slight INR PT Patient/Control Mix ABG pH ABG pCO2 ABG pO2 ABG HCO3 ABG Total CO2 ABG O2 Saturation ABG Base Excess Sodium 140 Potassium 4.1 Chloride 104 Carbon Dioxide 23 Anion Gap 17.1 H BUN 21 H Creatinine 2.20 H GFR Calculation 32 BUN/Creatinine Ratio 9.00 Glucose 190 H Hemoglobin A1c Calculated Osmolality 286.4 Lactic Acid Calcium 8.8 Magnesium Total Bilirubin AST ALT Alkaline Phosphatase Troponin I 0.103 H B-Natriuretic Peptide Total Protein Albumin Globulin Albumin/Globulin Ratio Triglycerides 63 Cholesterol 137 LDL Cholesterol 73.0 VLDL Cholesterol 12.6 HDL Cholesterol 52 Heart Disease Risk Ratio 2.63 Free T4 TSH 3rd Generation Urine Color Urine Appearance Urine pH Ur Specific [place] Urine Protein Urine Glucose (UA) Urine Ketones Urine Blood Urine Nitrate Urine Bilirubin Urine Urobilinogen Urine Leukocytes Urine RBC Urine WBC Ur Squamous Epith Cells Urine Bacteria Hyaline Casts Urine Mucus Ur Culture Indicated? 06/04/17 04:56 WBC RBC Hgb Hct MCV MCH MCHC RDW Plt Count MPV Neut % (Auto) Lymph % (Auto) [place] % (Auto) Eos % (Auto) Baso % (Auto) Neut # (Auto) Lymph # (Auto) [place] # (Auto) Eos # (Auto) Baso # (Auto) Total Counted Immature Gran % Nucleated RBC % Immature Gran # Segmented Neutrophils Lymphocytes Monocytes Nucleated RBCs # Platelet Estimate Giant Platelets Immature Plt Fraction Hypochromasia Mt Cells INR PT Patient/Control Mix ABG pH ABG pCO2 ABG pO2 ABG HCO3 ABG Total CO2 ABG O2 Saturation ABG Base Excess Sodium Potassium Chloride Carbon Dioxide Anion Gap BUN Creatinine GFR Calculation BUN/Creatinine Ratio Glucose Hemoglobin A1c 6.7 H Calculated Osmolality Lactic Acid Calcium Magnesium Total Bilirubin AST ALT Alkaline Phosphatase Troponin I B-Natriuretic Peptide Total Protein Albumin Globulin Albumin/Globulin Ratio Triglycerides Cholesterol LDL Cholesterol VLDL Cholesterol HDL Cholesterol Heart Disease Risk Ratio Free T4 TSH 3rd Generation Urine Color Urine Appearance Urine pH Ur Specific [place] Urine Protein Urine Glucose (UA) Urine Ketones Urine Blood Urine Nitrate Urine Bilirubin Urine Urobilinogen Urine Leukocytes Urine RBC Urine WBC Ur Squamous Epith Cells Urine Bacteria Hyaline Casts Urine Mucus Ur Culture Indicated? - Diagnostic Findings Procedure: Chest x-ray: image reviewed by me, report reviewed by me - EKG EKG results: interpreted by me, no acute changes EKG shows: sinus rhythm Patricia Patricia Attila, MD, personally performed the services described in this documentation, ascribed by Chris,Taylor, RN in my presence, and it is both accurate and complete .
--- NOTE | 2017-06-04 16:06 | Pulmonology Consult Note ---
Assessment and Plan (1) Congestive heart failure Status: Acute Assessment and plan: The patient has a component of heart failure and is getting a little better. Current Visit: No (2) Chronic kidney disease, stage 3 Status: Chronic Assessment and plan: Creatinine is 2.2. Current Visit: Yes (3) Acute exacerbation of chronic obstructive pulmonary disease (COPD) Status: Acute Assessment and plan: The patient does have severe COPD and has considerable bronchospasm. He will continue with the steroids and bronchodilator therapy. Current Visit: Yes (4) Ischemic cardiomyopathy Status: Chronic Assessment and plan: The patient does have a significant cardiomyopathy. Current Visit: Yes (5) Moderate mitral regurgitation Status: Chronic Assessment and plan: Patient has at least a component of heart failure from his mitral valve disease. Current Visit: Yes History of Present Illness History of present illness: This is the completion of my consult that was started and interrupted. Home Medications Medication Instructions Recorded Confirmed Type Albuterol Sulfate [Ventolin HFA] 2 puff INH Q6HR PRN 04/23/15 06/03/17 History Nitroglycerin Sl Tab [Nitrostat] 0.4 mg SL Q5M PRN #100 tablet 09/02/16 Rx Atorvastatin [Lipitor] 40 mg PO BEDTIME 10/15/16 06/03/17 History Aspirin EC Tab 81 mg PO QAM 06/03/17 06/03/17 History Carvedilol [Carvedilol] 12.5 mg PO BID 06/03/17 06/03/17 History Clopidogrel [Plavix] 75 mg PO QAM 06/03/17 06/03/17 History Furosemide [Furosemide] 20 mg PO DAILY PRN 06/03/17 06/03/17 History Nebivolol HCl [Bystolic] 20 mg PO BID 06/03/17 06/03/17 History Ticagrelor [Brilinta] 90 mg PO BID 06/03/17 06/03/17 History amLODIPine [Norvasc] 10 mg PO QAM 06/03/17 06/03/17 History hydrALAZINE TAB [Apresoline Tab] 100 mg PO TID 06/03/17 06/03/17 History Allergies Allergy/AdvReac Type Severity Reaction Status Date / Time No Known Allergies Allergy Verified 06/03/17 17:46 Exam (Pulmonay) H&P - Constitutional Vitals: Period Temp Pulse Resp BP Sys/Lui Pulse Ox Last 24 Hr 97.6 F-98.8 F 60-82 16-24 116-201/55-108 95-100 Medical,Surgical,& Family Hx - Medical History Cardio: History of: CAD, Hypertension, CO, PVD, Cardiovascular Problems Psychological: No history of: Anxiety Disorders, Depression, Psychiatric Problems Neurology: History of: Cerebrovascular Accident (a few months ago), Seizures ( "years ago") HEENT: History of: HEENT Problems (cataract surgery bilaterally; His thinks he has had Carotid stents ) Endocrine: History of: Dyslipidemia No history of: Diabetes Mellitus (IDDM), Diabetes Mellitus (NIDDM), Thyroid Disorder Rheumatology: History of;: Rheumatoid Arthritis Respiratory: History of: Asthma, COPD (Smoker) No history of: Obstructive Sleep Apnea Renal: History of: Renal Problems Genitourinary: History of: Bladder Problem Gastrointestinal: History of: Gastrointestinal Cancer (colon cancer, part of colon removed) No history of: GERD Hematology: History of: Anemia No history of: Blood Transfusion Reaction, Bleeding Problems, Clotting Problems Other: History of: Cancer (gastrointestinal) - Surgical History Cardiac Surgeries: Sugical HX of: Cardiac Catheterization Thoracic Surgeries: Patient denies;: Lobectomy Neurologic Surgeries: Patient denies: Neurologic Surgery Abdominal Surgeries: Surgical HX of: Abdominal Surgery (part of colon removed) - Family History Family History: Reports;: Family Cancer (daughter, eye.), Family Heart Disease ( father, brother,), Family Hypertension (mother, father, brother, sister) - Social History Smoking Status: Current every day smoker Frequency of Alcohol Use: None Type of Drug Use: None Results - Labs CBC & BMP: 06/04/17 04:56 06/04/17 04:56
[2017-06-04] MEDS: ENOXAPARIN 30 MG/0.3 ML SYRINGE SUBCUT SCH (21:20)
[2017-06-04] MEDS: ATORVASTATIN 40 MG TABLET PO SCH (21:21)
[2017-06-04] MEDS: cefTRIAXone 1,000 MG in SODIUM CHLORIDE 0.9% 100 ML IV SCH (21:22)
[2017-06-04] MEDS: AZITHROMYCIN INJ 500 MG in SODIUM CHLORIDE 0.9% 250 ML IV SCH (23:35)
[2017-06-05] MEDS: ALBUTEROL/IPRATROPIUM 3 ML NEB RESP TX SCH ×6 (02:35→23:24)
[2017-06-05] MEDS: AMINOPHYLLINE 500 MG in SODIUM CHLORIDE 0.9% 480 ML IV SCH (03:37)
[2017-06-05 04:56] LABS: Hematocrit 34.9 VOL% (42.0-52.0); Hemoglobin 12.1 GM/DL (14.0-18.0); Immature Granulocytes % 0.4 %; Immature Granulocytes Absolute 0.03 #; Lymphocytes # 0.3 10*3/uL (1.4-4.0); Lymphocytes % 3.9 % (21.2-54.2); Mean Corpuscular HGB Conc 34.7 GM/DL (32-36); Mean Corpuscular Hemoglobin 31 PG (27-34); Mean Corpuscular Volume 89.9 FL (87-102); Mean Platelet Volume 10.1 FL (9.6-12.0); Monocytes # 0.5 10*3/uL (0.11-0.8); Monocytes % 5.7 % (1.7-12.7); Neutrophils # 7.3 10*3/uL (1.4-7.4); Platelet Count 189 T/CUMM (130-400); Red Blood Count 3.88 MC/CUMM (3.8-5.5); Red Cell Distribution Width 14.9 % (9.3-17.3); White Blood Count 8.1 T/CUMM (4-12)
[2017-06-05 05:24] LABS: Calcium 8.6 MG/DL (8.5-10.1); Osmolality,Calculated 287.7 MOS/KG (273-304); Potassium 3.8 MMOL/L (3.5-5.1)
[2017-06-05 05:37] LABS: Lymphocytes 7 % (20-55); Segmented Neutrophils 89 % (50-85); Total Cells Counted 100
[2017-06-05 05:38] LABS: Hypochromasia 1+
[2017-06-05 05:39] LABS: Microcytosis Slight; Platelet Estimate Adequate
[2017-06-05] MEDS: methylPREDNISolone SOD SUC 40 MG/1 ML VIAL IV SCH ×4 (06:00→21:19)
--- NOTE | 2017-06-05 06:24 | Pulmonology Progress Note ---
Pulmonary - PN: Subj Interval history: Patient is an 87-year-old black man that has severe COPD along with a cardiomyopathy. He came in with severe shortness of breath with at least a component of heart failure. He was also wheezing considerably and is being monitored in CCU. He says he is feeling much better today. He said he got some rest last night and his cough and wheezing are better. He seems to be relatively comfortable at present. Exam (Progress Note) - Constitutional Vitals: Period Temp Pulse Resp BP Sys/Lui Pulse Ox Last 24 Hr 98.4 F-98.8 F 63-81 13-23 114-178/56-80 95-100 Exam: General appearance: normal weight, no distress (The patient looks better and seems to be comfortable at present.) - Head Head exam: Present: normal inspection, normocephalic - Eye Eye exam: Present: EOMI. Absent: scleral icterus Pupils: Present: MILO - ENT ENT exam: Present: normal exam - Neck Neck exam: Present: other (He does have increased JVD). Absent: lymphadenopathy , thyromegaly - Respiratory Respiratory exam: Present: He has somewhat distant breath sounds but is moving air better with less wheezing now. - Cardiovascular Cardiovascular exam: Present: irregular rhythm, JVD, systolic murmur, tachycardia - GI/Abdominal GI/Abdominal exam: Present: normal bowel sounds, soft. Absent: organomegaly, tenderness - Extremities Exam Extremities exam: Present: His leg swelling is better. - Neurological Exam Neurological exam: Present: alert, oriented X3, CN II-XII intact - Psychiatric Psychiatric exam: Present: normal affect - Skin Skin exam: Present: warm, dry Results - Labs CBC & BMP: 06/05/17 04:36 06/05/17 04:36 Assessment and Plan (1) Congestive heart failure Status: Acute Assessment and plan: The patient has a component of heart failure and is getting a little better. He certainly looks like his breathing much better today. Current Visit: No (2) Chronic kidney disease, stage 3 Status: Chronic Assessment and plan: Creatinine is 2.7. Current Visit: Yes (3) Acute exacerbation of chronic obstructive pulmonary disease (COPD) Status: Acute Assessment and plan: The patient does have severe COPD but looks like he is responding well to steroids and bronchodilators. He appears stable and can move to a regular room. Current Visit: Yes (4) Ischemic cardiomyopathy Status: Chronic Assessment and plan: The patient does have a significant cardiomyopathy. Chest x-ray suggests mild heart failure but he looks better. Current Visit: Yes (5) Moderate mitral regurgitation Status: Chronic Assessment and plan: Patient has at least a component of heart failure from his mitral valve disease. Current Visit: Yes
[2017-06-05] MEDS: PANTOPRAZOLE 40 MG TABLET PO SCH (08:39)
[2017-06-05] MEDS: CLOPIDOGREL 75 MG TABLET PO SCH (08:39)
[2017-06-05] MEDS: ASPIRIN CHEW 81 MG TABLET PO SCH (08:39)
[2017-06-05] MEDS: amLODIPine 10 MG TABLET PO SCH (08:39)
[2017-06-05] MEDS: hydrALAZINE 25 MG TABLET PO SCH ×3 (08:39→21:19)
[2017-06-05] MEDS: NEBIVOLOL 5 MG TABLET PO SCH (08:39)
[2017-06-05] MEDS: FUROSEMIDE 40 MG/4 ML VIAL IV SCH ×2 (08:39→15:44)
[2017-06-05] MEDS: hydroCHLOROthiazide 25 MG TABLET PO SCH (08:39)
[2017-06-05] MEDS: INSULIN REGULAR 100 UNIT/ML SUBCUT SCH ×3 (08:40→17:09)
[2017-06-05] MEDS: BUDESONIDE/FORMOTEROL 160-4.5 INHALER 6 GM INH SCH ×2 (09:00→21:20)
--- NOTE | 2017-06-05 13:56 | Cardiology Progress Note ---
Chris Patricia Vanessa, RN, am scribing for, and in the presence of, Get Gomez MD 13 :56. Assessment and Plan - Time spent with patient Time spent with patient: Greater than 30 minutes (1) Arrhythmia Status: Acute Assessment and plan: 87-year-old BM, PMHx HTN, HLD, PVD, CKD, severe COPD with chronic smoking, CAD and acute [place] in 2016 with PCI of 1st diagonal. Ischemic cardiomyopathy, EF 45- 50% with moderate MR. He is medically noncompliant, and has experienced transient complete AVB after sitting with hypertensive urgency and was noted to be on 2 beta-blockers. Now admitted with COPD exacerbation, volume overload, and tele monitor suspicious for AV block. Echo with EF 65%, severe pulm HTN with PAP 59 mmHg. -Continue Bystolic 5 mg PO daily. Still frequent atrial ectopy, likely due to lung disease, beta agonist treatment, Aminophyllin. No evidence of AV block. -Volume overload. Continue IV diuresis. Creatinine increased. -HTN- elevated. Currently on hydralazine 25 mg PO TID. May add Imdur if HTN/ pulm congestion persistent -COPD - severe. -CAD - demand ischemia most likely due to COPD exac, dCHF exac. Continue ASA, Plavix -HLD - LDL is 73. atorvastatin 40 mg PO nightly -CKD - renal function slightly worsened today -From cardiac standpoint, okay for transfer to floor when bed available. Current Visit: No (2) Acute exacerbation of chronic obstructive pulmonary disease (COPD) Status: Acute Assessment and plan: SEE PLAN OF CARE LISTED ABOVE. Current Visit: Yes (3) Chronic kidney disease, stage 3 Status: Chronic Assessment and plan: SEE PLAN OF CARE LISTED ABOVE. Current Visit: Yes (4) Coronary artery disease Status: Chronic Assessment and plan: SEE PLAN OF CARE LISTED ABOVE. Current Visit: Yes Qualifiers: Coronary Disease-Associated Artery/Lesion type: wiyot artery [place] vs. transplanted heart: wiyot heart Associated angina: without angina Qualified Code(s): I25.10 - Atherosclerotic heart disease of wiyot coronary artery without angina pectoris (5) Hyperlipidemia Status: Chronic Assessment and plan: SEE PLAN OF CARE LISTED ABOVE. Current Visit: No (6) Hypertension Status: Chronic Assessment and plan: SEE PLAN OF CARE LISTED ABOVE. Current Visit: No (7) Peripheral vascular disease Status: Chronic Assessment and plan: SEE PLAN OF CARE LISTED ABOVE. Current Visit: No (8) Ischemic cardiomyopathy Status: Chronic Assessment and plan: SEE PLAN OF CARE LISTED ABOVE. Current Visit: Yes (9) Medical non-compliance Status: Chronic Assessment and plan: SEE PLAN OF CARE LISTED ABOVE. Current Visit: Yes (10) Moderate mitral regurgitation Status: Chronic Assessment and plan: SEE PLAN OF CARE LISTED ABOVE. Current Visit: Yes (11) Smoker Status: Chronic Assessment and plan: SEE PLAN OF CARE LISTED ABOVE. Current Visit: Yes Cardiology - PN: Subj Interval history: MANAGER UTILIZATION MANAGEMENT: DR. STEEN SUMMARY: Mr. Gibson, 87 year old BM, PMHx hypertension, dyslipidemia, PVD (abnormal ABIs, referred for CTA but did not attend), and he is a chronic heavy smoker. ST elevation KS in August 2016 with PCI of 100% occluded first diagonal using drug-eluting stents x2 and has an ischemic cardiomyopathy with EF 45-50%, moderate MR. Also extremely noncompliant with medication and care.. Was most recently hospitalized in January with hypertensive urgency and transient complete heart block, was noted to be on 2 beta-blockers at time of admission, and both were discontinued with resolution of heart block at discharge. Labs seen by Dr. Steen in clinic on March 05. He had lower extremity edema for 3 weeks and was given Lasix to take as needed. Blood pressure and heart rate nor overall well controlled. There was confusion about medications he was taking as his medication list did not have diastolic, but family reported that he may be taking it. Patient is also just completed a 30 day event monitor which did not show any arrhythmia. Patient admitted to [facility] on the evening of after presenting with progressive worsening of shortness of breath since earlier in the morning. Elevated BP 201/100, BNP 4600, troponin 0 0.140, and chest x-ray with cardiomegaly and bibasilar pulmonary edema. Treated with IV Lasix, hydralazine, IV steroids, Aminophyllin infusion. He is being treated for COPD exacerbation. Cardiology is asked to see for acute on chronic CHF exacerbation and to rule out 2nd degree AVB type II. Upon tele review, no significant AVB. Does have some intermitten atrial tachycardia. Bystolic was started. 2016: Appears to be breathing more comfortably this morning. Still with significant wheezing but some improvement from yesterday. No chest pain. Tele reviewed and does not demonstrate AV block or sustained dysrhythmia. Some self sustained intermittent atrial tachycardia / PACs. He is asymptomatic with this. BP 120s/ 60s. Slightly worsened creatinine, 2.7. Improved BNP 1775. Right lower ext pain yesterday. DVT ruled out with venous doppler US. Awaiting bed availability for transfer to floor Exam (Progress Note) - Constitutional Vitals: Period Temp Pulse Resp BP Sys/Lui Pulse Ox Last 24 Hr 98.4 F 64-88 12-23 114-154/56-72 96-100 Exam: General: Present: No Apparent Distress, Other (disheveled) HEENT: Present: PERRL, Mucus Membranes Dry. Absent: Jaundice, Pallor Neck: Present: Supple Neck, Midline Trachea, JVD/HJR, No Masses, No Bruit Cardiac: Present: Irregularly Regular, Systolic Murmur. Absent: Tachycardia, Bradycardia Lungs: Present: Bibasilar Rales, Inspiratory and expiratory wheezes throughout- not really improved today, Oxygen (2L/NC), Neuro: Present: Grossly Intact. Absent: Numbness, Tingling, Weakness, Resting Tremor, Essential Tremor Abdomen: Present: Soft, Active Bowel Sounds, No Masses, No Pulsations/Bruits. Absent: Ascites, Tender, Firm, Distended Skin: Present: Clear. Absent: Rash, Suspicious Lesions Musculoskeletal: Present: Fluid Collection Extremities: Present: Normal Upper Extr. Pulses (2+), Normal Lower Extr. Pulses (1-2+ bilaterally), Edema (1+ edema BLEs), Clubbing, Capillary Refill (normal), Other (warm,dry). Absent: Cyanosis, diaphoresis Result/EKG - Labs CBC & BMP: 06/05/17 04:36 06/05/17 04:36 Lab Results: I have reviewed the past 24 hour labs Labs: Laboratory Results - last 24 hr 06/04/17 06/04/17 06/04/17 09:54 13:03 16:39 WBC RBC Hgb Hct MCV MCH MCHC RDW Plt Count MPV Neut % (Auto) Lymph % (Auto) [place] % (Auto) Eos % (Auto) Baso % (Auto) Neut # (Auto) Lymph # (Auto) [place] # (Auto) Eos # (Auto) Baso # (Auto) Total Counted Immature Gran % Nucleated RBC % Immature Gran # Segmented Neutrophils Lymphocytes Monocytes Nucleated RBCs # Platelet Estimate Immature Plt Fraction Hypochromasia Microcytosis Morphology Comment Sodium Potassium Chloride Carbon Dioxide Anion Gap BUN Creatinine GFR Calculation BUN/Creatinine Ratio Glucose POC Glucose 267 H 152 H Calculated Osmolality Calcium B-Natriuretic Peptide 3379 H 06/04/17 06/05/17 06/05/17 20:45 04:36 04:36 WBC 8.1 D RBC 3.88 Hgb 12.1 L Hct 34.9 L MCV 89.9 MCH 31 MCHC 34.7 RDW 14.9 Plt Count 189 MPV 10.1 Neut % (Auto) 90.0 H Lymph % (Auto) 3.9 L [place] % (Auto) 5.7 Eos % (Auto) 0.0 Baso % (Auto) 0.0 Neut # (Auto) 7.3 Lymph # (Auto) 0.3 L [place] # (Auto) 0.5 Eos # (Auto) 0.0 Baso # (Auto) 0.0 Total Counted 100 Immature Gran % 0.4 Nucleated RBC % 0.0 Immature Gran # 0.03 Segmented Neutrophils 89 H Lymphocytes 7 L Monocytes 4 Nucleated RBCs # 0.00 Platelet Estimate Adequate Immature Plt Fraction 0.0 Hypochromasia 1+ Microcytosis Slight Morphology Comment Sodium 138 Potassium 3.8 Chloride 103 Carbon Dioxide 25 Anion Gap 13.8 BUN 34 H D Creatinine 2.70 H GFR Calculation 25 BUN/Creatinine Ratio 12.00 Glucose 182 H POC Glucose 209 H Calculated Osmolality 287.7 Calcium 8.6 B-Natriuretic Peptide 06/05/17 06/05/17 04:36 07:49 WBC RBC Hgb Hct MCV MCH MCHC RDW Plt Count MPV Neut % (Auto) Lymph % (Auto) [place] % (Auto) Eos % (Auto) Baso % (Auto) Neut # (Auto) Lymph # (Auto) [place] # (Auto) Eos # (Auto) Baso # (Auto) Total Counted Immature Gran % Nucleated RBC % Immature Gran # Segmented Neutrophils Lymphocytes Monocytes Nucleated RBCs # Platelet Estimate Immature Plt Fraction Hypochromasia Microcytosis Morphology Comment Sodium Potassium Chloride Carbon Dioxide Anion Gap BUN Creatinine GFR Calculation BUN/Creatinine Ratio Glucose POC Glucose 184 H Calculated Osmolality Calcium B-Natriuretic Peptide 1775 H - EKG EKG results: interpreted by me, no acute changes EKG shows: sinus rhythm (Some transient atrial tach) I, Roka,Get, MD, personally performed the services described in this documentation, ascribed by Taylor Perez RN in my presence, and it is both accurate and complete .
--- NOTE | 2017-06-05 15:13 | Hospitalist Progress Note ---
Assessment and Plan (1) AV block, Mobitz II Status: Acute Assessment and plan: Holding beta susie and calcium channel susie Cardiology assisting Current Visit: Yes (2) Chronic kidney disease, stage 3 Status: Chronic Assessment and plan: Rising now He is also receiving iV lasix Will get nephrology to evaluate Current Visit: Yes (3) Hyperglycemia Status: Acute Assessment and plan: SSI Current Visit: Yes (4) Acute exacerbation of chronic obstructive pulmonary disease (COPD) Status: Acute Assessment and plan: Duonebs, steroids Azithromycin and Rocephin Pulmonary assisting Starting mucinex Current Visit: Yes Hospitalist: Subjective Interval history: No acute events overnight. Patient feels better today. Still has significant wheezing and course breath sounds. Exam - Constitutional Vitals: Period Temp Pulse Resp BP Sys/Lui Pulse Ox Last 24 Hr 98.4 F-98.5 F 64-97 12-22 114-140/56-69 96-100 General appearance: normal weight - Head Head exam: Present: normocephalic, atraumatic - Eye Eye exam: Present: EOMI Pupils: Present: MILO - ENT ENT exam: Present: normal exam - Neck Neck exam: Present: normal inspection - Respiratory Respiratory exam: Present: wheezes, other (coarse breath sounds bilaterally ) - Cardiovascular Cardiovascular exam: Present: regular rate and rhythm - GI/Abdominal GI/Abdominal exam: Present: normal bowel sounds, soft. Absent: tenderness, rebound - Extremities Exam Extremities exam: Present: normal inspection - Back Exam Back exam: Present: normal inspection - Neurological Exam Neurological exam: Present: alert, oriented X3 - Psychiatric Psychiatric exam: Present: normal affect, normal mood - Skin Skin exam: Present: warm, intact Results - Labs CBC & BMP: 06/05/17 04:36 06/05/17 04:36
--- NOTE | 2017-06-05 16:26 | Nephrology Consult Note ---
History of Present Illness Chief complaint: Acute on chronic renal failure, copd History of present illness: Mr. Gibson is a 87 year old male with a long history of cigarette smoking and COPD. He presented short of breath with bronchitis with bronchospasm/ exacerbation of his COPD. We are asked to see him because of a rise in his serum creatinine from 1.9 on admission to 2.7 today. This is occurred along with treatment of his COPD and some diuresis with 2 kg weight loss. On physical exam he is in no distress and says he is breathing without any trouble. His chest with a few crackles over the bases no wheezing noted. He has no peripheral edema. His chest x-ray from the is reviewed and shows no significant volume excess Impression acute superimposed on chronic renal failure. One wonders if the acute component is related to diuresis. #2 is COPD Our plan will stop hydrochlorothiazide as it is likely not having much effect at the current level of renal function and should the creatinine rise further tomorrow we will be inclined to decrease the diuretics. Will get a follow-up chest x-ray tomorrow. Home Medications Medication Instructions Recorded Confirmed Type Albuterol Sulfate [Ventolin HFA] 2 puff INH Q6HR PRN 04/23/15 06/03/17 History Nitroglycerin Sl Tab [Nitrostat] 0.4 mg SL Q5M PRN #100 tablet 09/02/16 Rx Atorvastatin [Lipitor] 40 mg PO BEDTIME 10/15/16 06/03/17 History Aspirin EC Tab 81 mg PO QAM 06/03/17 06/03/17 History Carvedilol [Carvedilol] 12.5 mg PO BID 06/03/17 06/03/17 History Clopidogrel [Plavix] 75 mg PO QAM 06/03/17 06/03/17 History Furosemide [Furosemide] 20 mg PO DAILY PRN 06/03/17 06/03/17 History Nebivolol HCl [Bystolic] 20 mg PO BID 06/03/17 06/03/17 History Ticagrelor [Brilinta] 90 mg PO BID 06/03/17 06/03/17 History amLODIPine [Norvasc] 10 mg PO QAM 06/03/17 06/03/17 History hydrALAZINE TAB [Apresoline Tab] 100 mg PO TID 06/03/17 06/03/17 History Allergies Allergy/AdvReac Type Severity Reaction Status Date / Time No Known Allergies Allergy Verified 06/03/17 17:46 Medical,Surgical,& Family Hx - Medical History Cardio: History of: CAD, Hypertension, [place], PVD, Cardiovascular Problems Psychological: No history of: Anxiety Disorders, Depression, Psychiatric Problems Neurology: History of: Cerebrovascular Accident (a few months ago), Seizures ( "years ago") HEENT: History of: HEENT Problems (cataract surgery bilaterally; His thinks he has had Carotid stents ) Endocrine: History of: Dyslipidemia No history of: Diabetes Mellitus (IDDM), Diabetes Mellitus (NIDDM), Thyroid Disorder Rheumatology: History of;: Rheumatoid Arthritis Respiratory: History of: Asthma, COPD (Smoker) No history of: Obstructive Sleep Apnea Renal: History of: Renal Problems Genitourinary: History of: Bladder Problem Gastrointestinal: History of: Gastrointestinal Cancer (colon cancer, part of colon removed) No history of: GERD Hematology: History of: Anemia No history of: Blood Transfusion Reaction, Bleeding Problems, Clotting Problems Other: History of: Cancer (gastrointestinal) - Surgical History Cardiac Surgeries: Sugical HX of: Cardiac Catheterization Thoracic Surgeries: Patient denies;: Lobectomy Neurologic Surgeries: Patient denies: Neurologic Surgery Abdominal Surgeries: Surgical HX of: Abdominal Surgery (part of colon removed) - Family History Family History: Reports;: Family Cancer (daughter, eye.), Family Heart Disease ( father, brother,), Family Hypertension (mother, father, brother, sister) - Social History Smoking Status: Current every day smoker Frequency of Alcohol Use: None Type of Drug Use: None Review of Systems 12 point system: reviewed and no additional remarkable complaints except as stated Exam - Vital Signs Vital signs: Period Temp Pulse Resp BP Sys/Lui Pulse Ox Last 24 Hr 97.6 F-98.5 F 64-97 12-22 114-140/56-69 95-100 - General Appearance General appearance: well-developed, well-nourished, appears started age Neck: no JVD, no thyromegaly, no carotid bruit, supple Respiratory: no kyphosis, no scoliosis Cardiology: no murmurs, no rub, no gallops, no edema, regular rate, regular rhythm, normal S1, normal S2 Gastrointestinal: normoactive bowel sounds Integumentary: no rash, warm and dry Neurologic: no focal deficit, no asterixis, alert and oriented x3, reflexes 2+ and symmetric, gait normal, strength 5/5 Musculoskeletal: no deformities, no erythema, no cyanosis, no clubbing Psychiatric: mood/affect appropriate, cooperative Results - Labs CBC & BMP: 06/05/17 04:36 06/05/17 04:36 Assessment and Plan - Time spent with patient Time spent with patient: Greater than 30 minutes (1) Acute on chronic renal failure Status: Acute Current Visit: Yes (2) COPD (chronic obstructive pulmonary disease) Status: Acute Current Visit: Yes Specialty Discharge - Follow Up or Referrals - Speciality Discharge Instructions Nephrology Instructions: We will check a chest x-ray and lab tomorrow. He may need less diuretic
[2017-06-05] MEDS: cefTRIAXone 1,000 MG in SODIUM CHLORIDE 0.9% 100 ML IV SCH (21:18)
[2017-06-05] MEDS: ATORVASTATIN 40 MG TABLET PO SCH (21:19)
[2017-06-05] MEDS: ENOXAPARIN 30 MG/0.3 ML SYRINGE SUBCUT SCH (21:20)
[2017-06-06] MEDS: INSULIN REGULAR 100 UNIT/ML SUBCUT SCH ×5 (00:09→21:28)
[2017-06-06] MEDS: AZITHROMYCIN INJ 500 MG in SODIUM CHLORIDE 0.9% 250 ML IV SCH ×2 (00:10→03:00)
[2017-06-06] MEDS: methylPREDNISolone SOD SUC 40 MG/1 ML VIAL IV SCH (02:54)
[2017-06-06] MEDS: ALBUTEROL/IPRATROPIUM 3 ML NEB RESP TX SCH ×6 (04:03→19:07)
[2017-06-06 04:11] LABS: Hematocrit 35.2 VOL% (42.0-52.0); Hemoglobin 12.2 GM/DL (14.0-18.0); Immature Granulocytes % 0.3 %; Immature Granulocytes Absolute 0.03 #; Lymphocytes # 0.2 10*3/uL (1.4-4.0); Lymphocytes % 2.3 % (21.2-54.2); Mean Corpuscular HGB Conc 34.7 GM/DL (32-36); Mean Corpuscular Hemoglobin 31 PG (27-34); Mean Corpuscular Volume 89.3 FL (87-102); Mean Platelet Volume 9.8 FL (9.6-12.0); Monocytes # 0.4 10*3/uL (0.11-0.8); Monocytes % 4.1 % (1.7-12.7); Neutrophils # 8.8 10*3/uL (1.4-7.4); Neutrophils % 93.3 % (38.7-73.9); Platelet Count 205 T/CUMM (130-400); Red Blood Count 3.94 MC/CUMM (3.8-5.5); Red Cell Distribution Width 14.6 % (9.3-17.3); White Blood Count 9.5 T/CUMM (4-12)
[2017-06-06 04:43] LABS: Calcium 8.3 MG/DL (8.5-10.1); Osmolality,Calculated 287.8 MOS/KG (273-304); Potassium 3.5 MMOL/L (3.5-5.1)
[2017-06-06 05:18] LABS: Band Neutrophils 3 % (0-10); Lymphocytes 3 % (20-55); Platelet Estimate Normal; Segmented Neutrophils 92 % (50-85); Total Cells Counted 100
--- NOTE | 2017-06-06 10:25 | XRay Report ---
2 view chest. Indication: COPD. Comparison: June 03, 2017. The heart is enlarged with left ventricular hypertrophy. There is uncoiling of the thoracic aorta which often indicates chronic hypertension. There is a moderate right pleural effusion. There is atelectasis present within the right middle lobe. The left lung is essentially clear. The lung johnson are hyperexpanded and fibrosis is present. Degenerative changes are noted within the thoracic spine. Impression: Cardiomegaly. Findings of COPD. Increasing right-sided pleural effusion and right middle lobe atelectasis. PROCEDURE INTERPRETED AT [facility] DEPARTMENT OF RADIOLOGY Final Report Signed by: Dr. Noreen Singh
[2017-06-06] MEDS: FUROSEMIDE 40 MG/4 ML VIAL IV SCH (10:34)
--- NOTE | 2017-06-06 10:38 | Pulmonology Progress Note ---
Pulmonary - PN: Subj Interval history: This 87-year-old man was in the intensive care unit with congestive heart failure and exacerbation of COPD. He has been diuresed. He is on steroids bronchodilators. He starting to walk a little bit. His chest x-ray today shows some atelectasis in his right middle lobe and a small right pleural effusion but is improved. Exam (Progress Note) - Constitutional Vitals: Period Temp Pulse Resp BP Sys/Lui Pulse Ox Last 24 Hr 97.3 F-98.4 F 71-97 13-22 118-145/56-74 93-100 Exam: Patient is alert and responsive vital signs normal pupils react to light. Throat is clear. Neck supple no bruits. Chest reveals a few rhonchi in the right middle lobe otherwise clear. Heart normal rate irregular rhythm no murmurs. Abdomen soft nontender no masses. Extremities no clubbing cyanosis edema. Calves nontender. Results - Labs CBC & BMP: 06/06/17 03:19 06/06/17 03:19 Lab Results: I have reviewed the past 24 hour labs - Diagnostic Findings Procedure: Chest x-ray: image reviewed by me (Small right pleural effusion. Right middle lobe with some atelectasis.) Assessment and Plan (1) Congestive heart failure Status: Acute Assessment and plan: This is improved with diuresis. He has systolic congestive heart failure. Current Visit: No (2) Acute exacerbation of chronic obstructive airways disease Status: Acute Assessment and plan: Still a little wheezing on the right side and some atelectasis in the right middle lobe. Need to continue antibiotic steroids bronchodilators. Current Visit: Yes (3) Ischemic cardiomyopathy Status: Chronic Assessment and plan: This is the main cause of his congestive heart failure. Current Visit: Yes
[2017-06-06] MEDS: amLODIPine 10 MG TABLET PO SCH (10:48)
[2017-06-06] MEDS: ASPIRIN CHEW 81 MG TABLET PO SCH (10:48)
[2017-06-06] MEDS: CLOPIDOGREL 75 MG TABLET PO SCH (10:48)
[2017-06-06] MEDS: hydrALAZINE 25 MG TABLET PO SCH ×3 (10:48→21:28)
[2017-06-06] MEDS: PANTOPRAZOLE 40 MG TABLET PO SCH (10:49)
[2017-06-06] MEDS: NEBIVOLOL 5 MG TABLET PO SCH (10:49)
[2017-06-06] MEDS: BUDESONIDE/FORMOTEROL 160-4.5 INHALER 6 GM INH SCH ×2 (10:49→21:30)
--- NOTE | 2017-06-06 12:07 | Cardiology Progress Note ---
Assessment and Plan (1) Arrhythmia Status: Acute Assessment and plan: 87-year-old BM, PMHx HTN, HLD, PVD, CKD, severe COPD with chronic smoking, CAD and acute PA in 2016 with PCI of 1st diagonal. Ischemic cardiomyopathy, EF 45- 50% with moderate MR. He is medically noncompliant, and has experienced transient complete AVB after sitting with hypertensive urgency and was noted to be on 2 beta-blockers. Now admitted with COPD exacerbation, volume overload, and tele monitor suspicious for AV block. Echo with EF 65%, severe pulm HTN with PAP 59 mmHg. -Increase Bystolic to 5 mg daily. Frequent atrial ectopy, likely due to lung disease, beta agonist treatment, Aminophyllin. No evidence of AV block. If he develops sustained or symptomatic runs of SVT, Cardizem may be at the -Volume overload. Improved with IV diuresis, now, renal function worsening. -HTN- better controlled. Currently on hydralazine 25 mg PO TID. May add Imdur if HTN/pulm congestion persistent -COPD - severe. -CAD - demand ischemia most likely due to COPD exac, dCHF exac. Continue ASA, Plavix -HLD - LDL is 73. atorvastatin 40 mg PO nightly -I will sign off, please call with further questions Follow-up with Dr. Steen in 4 weeks Current Visit: No (2) Acute exacerbation of chronic obstructive pulmonary disease (COPD) Status: Acute Assessment and plan: SEE PLAN OF CARE LISTED ABOVE. Current Visit: Yes (3) Chronic kidney disease, stage 3 Status: Chronic Assessment and plan: SEE PLAN OF CARE LISTED ABOVE. Current Visit: Yes (4) Coronary artery disease Status: Chronic Assessment and plan: SEE PLAN OF CARE LISTED ABOVE. Current Visit: Yes Qualifiers: Coronary Disease-Associated Artery/Lesion type: kiana artery [place] vs. transplanted heart: kiana heart Associated angina: without angina Qualified Code(s): I25.10 - Atherosclerotic heart disease of kiana coronary artery without angina pectoris (5) Hyperlipidemia Status: Chronic Assessment and plan: SEE PLAN OF CARE LISTED ABOVE. Current Visit: No (6) Hypertension Status: Chronic Assessment and plan: SEE PLAN OF CARE LISTED ABOVE. Current Visit: No (7) Peripheral vascular disease Status: Chronic Assessment and plan: SEE PLAN OF CARE LISTED ABOVE. Current Visit: No (8) Ischemic cardiomyopathy Status: Chronic Assessment and plan: SEE PLAN OF CARE LISTED ABOVE. Current Visit: Yes (9) Medical non-compliance Status: Chronic Assessment and plan: SEE PLAN OF CARE LISTED ABOVE. Current Visit: Yes (10) Moderate mitral regurgitation Status: Chronic Assessment and plan: SEE PLAN OF CARE LISTED ABOVE. Current Visit: Yes (11) Smoker Status: Chronic Assessment and plan: SEE PLAN OF CARE LISTED ABOVE. Current Visit: Yes Cardiology - PN: Subj Interval history: He is feeling better. Still, with sporadic atrial ectopy. Blood pressure better controlled, rest heart rate still in the 80s. Exam (Progress Note) - Constitutional Vitals: Period Temp Pulse Resp BP Sys/Lui Pulse Ox Last 24 Hr 97.3 F-98.1 F 61-97 13-22 118-145/56-74 93-100 General appearance: normal weight, over weight - Head Head exam: Present: normal inspection. Absent: contusion - Eye Eye exam: Absent: periorbital swelling, scleral icterus Pupils: Absent: dilated - ENT ENT exam: Present: normal external ear exam - Neck Neck exam: Present: normal inspection. Absent: thyromegaly - Respiratory Respiratory exam: Present: decreased breath sounds, prolonged expiratory phase, wheezes. Absent: accessory muscle use - Cardiovascular Cardiovascular exam: Present: regular rate and rhythm, systolic murmur. Absent : JVD - GI/Abdominal GI/Abdominal exam: Present: normal bowel sounds. Absent: distended - Extremities Exam Extremities exam: Present: normal inspection, normal capillary refill, edema (1+ ) - Neurological Exam Neurological exam: Present: alert, oriented X3 - Psychiatric Psychiatric exam: Present: normal affect, normal mood - Skin Skin exam: Present: normal color, warm. Absent: cyanosis Result/EKG - Labs CBC & BMP: 06/06/17 03:19 06/06/17 03:19 Lab Results: I have reviewed the past 24 hour labs Labs: Laboratory Results - last 24 hr 06/05/17 06/05/17 06/05/17 11:27 16:20 21:24 WBC RBC Hgb Hct MCV MCH MCHC RDW Plt Count MPV Neut % (Auto) Lymph % (Auto) Nash % (Auto) Eos % (Auto) Baso % (Auto) Neut # (Auto) Lymph # (Auto) Nash # (Auto) Eos # (Auto) Baso # (Auto) Total Counted Immature Gran % Nucleated RBC % Immature Gran # Segmented Neutrophils Band Neutrophils Lymphocytes Monocytes Nucleated RBCs # Platelet Estimate Immature Plt Fraction Pappenheimer Bodies Sodium Potassium Chloride Carbon Dioxide Anion Gap BUN Creatinine GFR Calculation BUN/Creatinine Ratio Glucose POC Glucose 220 H 242 H 153 H Calculated Osmolality Calcium 06/06/17 06/06/17 06/06/17 03:19 03:19 08:07 WBC 9.5 RBC 3.94 Hgb 12.2 L Hct 35.2 L MCV 89.3 MCH 31 MCHC 34.7 RDW 14.6 Plt Count 205 MPV 9.8 Neut % (Auto) 93.3 H Lymph % (Auto) 2.3 L Nash % (Auto) 4.1 Eos % (Auto) 0.0 Baso % (Auto) 0.0 Neut # (Auto) 8.8 H Lymph # (Auto) 0.2 L Nash # (Auto) 0.4 Eos # (Auto) 0.0 Baso # (Auto) 0.0 Total Counted 100 Immature Gran % 0.3 Nucleated RBC % 0.0 Immature Gran # 0.03 Segmented Neutrophils 92 H Band Neutrophils 3 Lymphocytes 3 L Monocytes 2 Nucleated RBCs # 0.00 Platelet Estimate Normal Immature Plt Fraction 0.0 Pappenheimer Bodies Labour Market Economist Sodium 137 Potassium 3.5 Chloride 101 Carbon Dioxide 24 Anion Gap 15.5 H BUN 46 H D Creatinine 3.00 H GFR Calculation 22 BUN/Creatinine Ratio 15.00 Glucose 159 H POC Glucose 189 H Calculated Osmolality 287.8 Calcium 8.3 L 06/06/17 11:41 WBC RBC Hgb Hct MCV MCH MCHC RDW Plt Count MPV Neut % (Auto) Lymph % (Auto) Nash % (Auto) Eos % (Auto) Baso % (Auto) Neut # (Auto) Lymph # (Auto) Nash # (Auto) Eos # (Auto) Baso # (Auto) Total Counted Immature Gran % Nucleated RBC % Immature Gran # Segmented Neutrophils Band Neutrophils Lymphocytes Monocytes Nucleated RBCs # Platelet Estimate Immature Plt Fraction Pappenheimer Bodies Sodium Potassium Chloride Carbon Dioxide Anion Gap BUN Creatinine GFR Calculation BUN/Creatinine Ratio Glucose POC Glucose 195 H Calculated Osmolality Calcium - EKG EKG results: interpreted by me
[2017-06-06] MEDS: AMINOPHYLLINE 500 MG in SODIUM CHLORIDE 0.9% 480 ML IV SCH (15:00)
--- NOTE | 2017-06-06 15:03 | Nephrology Progress Note ---
Nephrology - PN: Subj Interval history: Mr. Gibson is seen in follow-up of his acute superimposed on chronic renal impairment. His creatinine is up to 3.0 and he likely is volume depleted. He has no peripheral edema and his breathing is much improved. There is no lindy fluid overload on his chest x-ray. Hydrochlorthiazide was discontinued yesterday and we will stop his Lasix for now. We would expect his creatinine to slowly fall back to baseline. Exam (PN)-Nephrology - Vital Signs Vital signs: Period Temp Pulse Resp BP Sys/Lui Pulse Ox Last 24 Hr 97.3 F-98.1 F 61-97 15-22 118-145/56-74 93-100 - Lab 06/06/17 03:19 06/06/17 03:19 Most recent lab results ABG pH 7.419 (7.35-7.45) 06/03/17 18:19 ABG pCO2 33.1 MM HG (35-48) L 06/03/17 18:19 ABG pO2 104.0 MM HG (80-95) H 06/03/17 18:19 ABG HCO3 22.6 MMOL/L (20-26) 06/03/17 18:19 ABG O2 Saturation 97.8 % (95-100) 06/03/17 18:19 Calcium 8.3 MG/DL (8.5-10.1) L 06/06/17 03:19 Magnesium 2.1 MG/DL (1.8-2.4) 06/03/17 21:56 Assessment and Plan (1) Acute on chronic renal failure Status: Acute Current Visit: Yes (2) COPD (chronic obstructive pulmonary disease) Status: Acute Current Visit: Yes
--- NOTE | 2017-06-06 15:28 | Hospitalist Progress Note ---
<Ezekiel Rey - Last Filed: 06/06/17 15:07> Assessment and Plan (1) AV block, Mobitz II Status: Acute Assessment and plan: Bystolic increased to 5 mg per cardiology. They have signed off. Current Visit: Yes (2) Acute exacerbation of chronic obstructive pulmonary disease (COPD) Status: Acute Assessment and plan: Pulmonary following. Continue duonebs and steroids. Continue IV antibiotics azithromycin and Rocephin. Current Visit: Yes (3) Hyperglycemia Status: Acute Assessment and plan: Accuchecks. SSI. Current Visit: Yes (4) Chronic kidney disease, stage 3 Status: Chronic Assessment and plan: Nephrology following. Avoid nephrotoxic agents (lasix and hctz have been dc'ed) Creatinine increased to 3 today. Current Visit: Yes Hospitalist: Subjective Interval history: Mr. Gibson was seen and examined today with family present at bedside. No acute changes overnight. Pt. denies any needs at this time. Pt. states "I feel good, I want to go home". Cardiology, pulmonary, and nephrology following. Cardiology saw patient today and signed off. Blood pressure is controlled and Bystolic was increased. Patient continues to be on Aminophyllin infusion. Lasix and hctz have been discontinued as creatinine climbed to 3 today. We will continue to monitor. Exam - Constitutional Vitals: Period Temp Pulse Resp BP Sys/Lui Pulse Ox Last 24 Hr 97.3 F-98.1 F 61-97 15-22 118-145/56-74 93-100 General appearance: normal weight, no acute distress - Head Head exam: Present: normal inspection, normocephalic - Eye Eye exam: Present: EOMI Pupils: Present: MILO - Respiratory Respiratory exam: Present: clear to auscultation bilaterally. Absent: wheezes - Cardiovascular Cardiovascular exam: Present: regular rate and rhythm - GI/Abdominal GI/Abdominal exam: Present: normal bowel sounds, soft. Absent: tenderness - Extremities Exam Extremities exam: Present: normal capillary refill, full ROM. Absent: edema - Neurological Exam Neurological exam: Present: alert, oriented X3 - Psychiatric Psychiatric exam: Present: normal affect, normal mood - Skin Skin exam: Present: normal color, warm, dry Results - Labs CBC & BMP: 06/06/17 03:19 06/06/17 03:19 <Olivia Jordan - Last Filed: 06/06/17 17:07> Assessment and Plan (1) AV block, Mobitz II Status: Acute Current Visit: Yes (2) Chronic kidney disease, stage 3 Status: Chronic Current Visit: Yes (3) Hyperglycemia Status: Acute Current Visit: Yes (4) Acute exacerbation of chronic obstructive pulmonary disease (COPD) Status: Acute Current Visit: Yes Hospitalist: Subjective Interval history: Patient seen and examined independently of CAR RECORD CLERK Rey, agree with assessment and plan as documented. Patient is very eager for discharge. Creatinine is slightly increased today. Holding lasix. Possible discharge soon with close outpatient follow-up Exam - Constitutional Vitals: Period Temp Pulse Resp BP Sys/Lui Pulse Ox Last 24 Hr 97.3 F-98.1 F 61-97 15-22 106-145/62-74 93-100 Results - Labs CBC & BMP: 06/06/17 03:19 06/06/17 03:19
[2017-06-06] MEDS ORDERED: methylPREDNISolone SOD SUC 40 MG/1 ML VIAL IV SCH (21:00)
[2017-06-06] MEDS: cefTRIAXone 1,000 MG in SODIUM CHLORIDE 0.9% 100 ML IV SCH (21:28)
[2017-06-06] MEDS: ATORVASTATIN 40 MG TABLET PO SCH (21:28)
[2017-06-06] MEDS: ENOXAPARIN 30 MG/0.3 ML SYRINGE SUBCUT SCH (21:28)
[2017-06-07] MEDS: AZITHROMYCIN INJ 500 MG in SODIUM CHLORIDE 0.9% 250 ML IV SCH ×2 (00:03→22:18)
[2017-06-07] MEDS: ALBUTEROL/IPRATROPIUM 3 ML NEB RESP TX SCH ×6 (00:12→20:04)
[2017-06-07 04:41] LABS: Magnesium 2.1 MG/DL (1.8-2.4); Osmolality,Calculated 291.7 MOS/KG (273-304); Potassium 2.9 MMOL/L (3.5-5.1)
--- NOTE | 2017-06-07 07:57 | Hospitalist Progress Note ---
Assessment and Plan (1) Acute exacerbation of chronic obstructive airways disease Status: Acute Assessment and plan: Patient continues on intravenous azithromycin, intravenous ceftriaxone, intravenous methylprednisolone, and albuterol ipratropium nebulizer therapy. He is significantly improved with no wheezing or coughing. He continues to be followed by pulmonary. I will discontinue the methylprednisolone and start him on oral prednisone. Current Visit: Yes (2) Sick sinus syndrome Status: Acute Assessment and plan: Telemetry monitoring demonstrates normal sinus rhythm with frequent atrial premature beats and occasional ventricular premature beats. Current Visit: No (3) CHF (congestive heart failure) Status: Acute Assessment and plan: Previous history of chronic systolic and diastolic congestive heart failure. There is no clinical evidence at the present time of acute congestive heart failure. Current Visit: Yes (4) Hyperglycemia Status: Acute Assessment and plan: His blood glucose this morning is 168. He continues on sliding scale regular insulin coverage. Current Visit: Yes (5) Ischemic cardiomyopathy Status: Chronic Current Visit: Yes (6) Acute on chronic renal failure Status: Acute Assessment and plan: He has had gradually worsening renal function with BUN and creatinine today of 55 and 3.2 respectively. In addition he has had hypokalemia which has been gradually worsening to today 2.9. I have begun him on sodium chloride 0.9% intravenous infusion at 50 mL/h and on potassium chloride replacement at 40 mEq p.o. twice daily 2 days. He continues to be followed by nephrology. Current Visit: Yes Qualifiers: Acute renal failure type: unspecified Chronic kidney disease stage: stage 3 (moderate) Qualified Code(s): N17.9 - Acute kidney failure, unspecified; N18.3 - Chronic kidney disease, stage 3 (moderate) Hospitalist: Subjective Interval history: Mr. Gibson has been hospitalized with acute exacerbation of chronic obstructive pulmonary disease. He has a previous history of ischemic cardiomyopathy, chronic systolic and diastolic congestive heart failure, end stage III chronic kidney disease. He has been experiencing gradually worsening renal function, presumably secondary to diuretics, and hypokalemia. Cardiology has discontinued following him. He continues to be followed by pulmonary and nephrology. Exam - Constitutional Vitals: Period Temp Pulse Resp BP Sys/Lui Pulse Ox Last 24 Hr 97.3 F-98.1 F 61-118 18-20 106-135/60-71 93-99 General appearance: no acute distress - Head Head exam: Present: normal inspection - Neck Neck exam: Present: normal inspection - Respiratory Respiratory exam: Present: other (Scattered rhonchi.) - Cardiovascular Cardiovascular exam: Present: regular rate and rhythm - GI/Abdominal GI/Abdominal exam: Present: normal bowel sounds, soft, other (Nontender with no palpable masses or hepatosplenomegaly.) - Extremities Exam Extremities exam: Present: normal inspection - Skin Skin exam: Present: normal color, warm, intact Results - Labs CBC & BMP: 06/06/17 03:19 06/07/17 03:18
[2017-06-07] MEDS: INSULIN REGULAR 100 UNIT/ML SUBCUT SCH ×4 (08:16→21:21)
[2017-06-07] MEDS: POTASSIUM CHLORIDE 20 MEQ TABLET PO SCH ×2 (08:17→21:21)
[2017-06-07] MEDS: PANTOPRAZOLE 40 MG TABLET PO SCH (08:17)
[2017-06-07] MEDS: hydrALAZINE 25 MG TABLET PO SCH ×3 (08:17→21:21)
[2017-06-07] MEDS: NEBIVOLOL 5 MG TABLET PO SCH (08:17)
[2017-06-07] MEDS: CLOPIDOGREL 75 MG TABLET PO SCH (08:17)
[2017-06-07] MEDS: predniSONE 20 MG TABLET PO SCH (08:18)
[2017-06-07] MEDS: ASPIRIN CHEW 81 MG TABLET PO SCH (08:18)
[2017-06-07] MEDS: amLODIPine 10 MG TABLET PO SCH (08:18)
[2017-06-07] MEDS: BUDESONIDE/FORMOTEROL 160-4.5 INHALER 6 GM INH SCH ×2 (08:23→21:29)
[2017-06-07] MEDS: SODIUM CHLORIDE 0.9% 1,000 ML IV SCH (08:28)
--- NOTE | 2017-06-07 08:33 | EKG Report ---
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
--- NOTE | 2017-06-07 10:18 | Pulmonology Progress Note ---
Pulmonary - PN: Subj Interval history: This 87-year-old man was in the intensive care unit with congestive heart failure and exacerbation of COPD. He has been diuresed. He is on steroids bronchodilators. He starting to walk a little bit. His chest x-ray today shows some atelectasis in his right middle lobe and a small right pleural effusion but is improved. 06/07/2017 patient is up ambulating in the room. Feels better. No new complaints. Exam (Progress Note) - Constitutional Vitals: Period Temp Pulse Resp BP Sys/Lui Pulse Ox Last 24 Hr 97.3 F-98.1 F 61-130 18-20 106-149/60-91 95-99 Exam: Patient is alert and responsive vital signs normal pupils react to light. Throat is clear. Neck supple no bruits. Chest reveals a few rhonchi in the right middle lobe otherwise clear. Heart normal rate irregular rhythm no murmurs. Abdomen soft nontender no masses. Extremities no clubbing cyanosis edema. Calves nontender. Little change from yesterday. Results - Labs CBC & BMP: 06/06/17 03:19 06/07/17 03:18 Lab Results: I have reviewed the past 24 hour labs Assessment and Plan (1) Congestive heart failure Status: Acute Assessment and plan: This is improved with diuresis. He has systolic congestive heart failure. 06/07/2017 congestive heart failure improved. Watch renal function closely. Current Visit: No (2) Acute exacerbation of chronic obstructive airways disease Status: Acute Assessment and plan: Still a little wheezing on the right side and some atelectasis in the right middle lobe. Need to continue antibiotic steroids bronchodilators. 06/07/2017 no bronchospasm today. Reduce steroids. Current Visit: Yes (3) Ischemic cardiomyopathy Status: Chronic Assessment and plan: This is the main cause of his congestive heart failure. Current Visit: Yes
--- NOTE | 2017-06-07 11:18 | Nephrology Progress Note ---
Nephrology - PN: Subj Interval history: Mr. Gibson is seen with his acute renal failure superimposed on chronic renal failure. His creatinine is up slightly today to 3.2. He is off all diuretics and is receiving some IV fluid his chest is clear and is not wheezing. I think with a little volume repletion his creatinine will return to baseline. He sitting in a chair and is comfortable. Exam (PN)-Nephrology - Vital Signs Vital signs: Period Temp Pulse Resp BP Sys/Lui Pulse Ox Last 24 Hr 97.3 F-98.1 F 61-130 16-20 106-149/60-91 95-99 - Lab 06/06/17 03:19 06/07/17 03:18 Most recent lab results ABG pH 7.419 (7.35-7.45) 06/03/17 18:19 ABG pCO2 33.1 MM HG (35-48) L 06/03/17 18:19 ABG pO2 104.0 MM HG (80-95) H 06/03/17 18:19 ABG HCO3 22.6 MMOL/L (20-26) 06/03/17 18:19 ABG O2 Saturation 97.8 % (95-100) 06/03/17 18:19 Calcium 8.0 MG/DL (8.5-10.1) L 06/07/17 03:18 Magnesium 2.1 MG/DL (1.8-2.4) 06/07/17 03:18 Assessment and Plan (1) Acute on chronic renal failure Status: Acute Current Visit: Yes Qualifiers: Acute renal failure type: unspecified Chronic kidney disease stage: stage 3 (moderate) Qualified Code(s): N17.9 - Acute kidney failure, unspecified; N18.3 - Chronic kidney disease, stage 3 (moderate) (2) COPD (chronic obstructive pulmonary disease) Status: Acute Current Visit: Yes
[2017-06-07] MEDS: AMINOPHYLLINE 500 MG in SODIUM CHLORIDE 0.9% 480 ML IV SCH (15:03)
[2017-06-07] MEDS: ATORVASTATIN 40 MG TABLET PO SCH (21:21)
[2017-06-07] MEDS: ENOXAPARIN 30 MG/0.3 ML SYRINGE SUBCUT SCH (21:21)
[2017-06-07] MEDS: cefTRIAXone 1,000 MG in SODIUM CHLORIDE 0.9% 100 ML IV SCH (21:22)
[2017-06-08] MEDS: ALBUTEROL/IPRATROPIUM 3 ML NEB RESP TX SCH ×7 (00:20→22:53)
[2017-06-08 06:50] LABS: Hematocrit 36.6 VOL% (42.0-52.0); Hemoglobin 13.1 GM/DL (14.0-18.0); Immature Granulocytes % 0.5 %; Immature Granulocytes Absolute 0.04 #; Lymphocytes # 0.4 10*3/uL (1.4-4.0); Lymphocytes % 4.5 % (21.2-54.2); Mean Corpuscular HGB Conc 35.8 GM/DL (32-36); Mean Corpuscular Hemoglobin 32 PG (27-34); Mean Corpuscular Volume 88.4 FL (87-102); Mean Platelet Volume 9.8 FL (9.6-12.0); Monocytes # 1.3 10*3/uL (0.11-0.8); Monocytes % 14.9 % (1.7-12.7); Neutrophils # 6.8 10*3/uL (1.4-7.4); Neutrophils % 80.1 % (38.7-73.9); Platelet Count 217 T/CUMM (130-400); Red Blood Count 4.14 MC/CUMM (3.8-5.5); White Blood Count 8.5 T/CUMM (4-12)
[2017-06-08 07:16] LABS: Calcium 7.9 MG/DL (8.5-10.1); Osmolality,Calculated 292.7 MOS/KG (273-304); Potassium 3.6 MMOL/L (3.5-5.1)
[2017-06-08 07:26] LABS: Band Neutrophils 1 % (0-10); Lymphocytes 5 % (20-55); Platelet Estimate Adequate; Segmented Neutrophils 83 % (50-85); Total Cells Counted 100
[2017-06-08 07:27] LABS: Burr Cells Slight; Giant Platelets Few; Hypochromasia 1+; Microcytosis Slight; Ovalocytes Slight
[2017-06-08] MEDS: hydrALAZINE 25 MG TABLET PO SCH ×3 (10:16→21:43)
[2017-06-08] MEDS: predniSONE 20 MG TABLET PO SCH (10:16)
[2017-06-08] MEDS: ASPIRIN CHEW 81 MG TABLET PO SCH (10:16)
[2017-06-08] MEDS: amLODIPine 10 MG TABLET PO SCH (10:16)
[2017-06-08] MEDS: POTASSIUM CHLORIDE 20 MEQ TABLET PO SCH ×2 (10:16→21:43)
[2017-06-08] MEDS: NEBIVOLOL 5 MG TABLET PO SCH (10:16)
[2017-06-08] MEDS: CLOPIDOGREL 75 MG TABLET PO SCH (10:17)
[2017-06-08] MEDS: BUDESONIDE/FORMOTEROL 160-4.5 INHALER 6 GM INH SCH ×2 (10:17→21:46)
[2017-06-08] MEDS: PANTOPRAZOLE 40 MG TABLET PO SCH (10:17)
[2017-06-08] MEDS: SODIUM CHLORIDE 0.9% 1,000 ML IV SCH (10:19)
--- NOTE | 2017-06-08 10:36 | Hospitalist Progress Note ---
Hospitalist: Subjective Interval history: 87-year-old male was admitted with COPD exacerbation. He also had acute kidney injury on chronic kidney disease. He denies any acute complaints today. Exam - Constitutional Vitals: Period Temp Pulse Resp BP Sys/Lui Pulse Ox Last 24 Hr 96.6 F-98.4 F 65-108 16-21 117-135/61-77 94-99 Exam: General: [No Acute Distress] HEENT: [Normocephalic, atraumatic, Extra ocular movements intact] Neck: [Supple, No JVD] Chest: [Clear to auscultation B/L] CV: [S1 + S2 audible without murmur, gallop or rub] Abd: [soft, NT, Non-distended, BS +] Ext: [No edema] Skin: [No purpura, bruising or rash] Rheumatologic: [No Joint deformities] Neurologic: [Awake and alert] Results - Labs CBC & BMP: 06/08/17 04:24 06/08/17 04:24 - Impressions Assessment and Plan: Acute exacerbation of chronic obstructive airways disease Status: Acute Assessment and plan: Patient continues on intravenous azithromycin, intravenous ceftriaxone, p.o. prednisone, and albuterol/ipratropium nebulizer therapy. He is significantly improved with no wheezing or coughing. He is also on IV aminophylline. Pulmonary is following. Current Visit: Yes TARUN on CKD-III Status: Acute Assessment and plan: His creatinine went to 3.2, his baseline appears to be around a little over 2. His he is getting gentle hydration. Nephrology is following Current Visit: Yes Acute on chronic diastolic congestive heart failure Status: Acute Assessment and plan: Ejection fraction was 65% on echo. He is off diuretics due to renal failure. Current Visit: Yes Severe pulmonary hypertension/tricuspid regurgitation Status: Chronic Current Visit: Yes His PAP is 59 mm Hg Ischemic cardiomyopathy Status: Chronic Current Visit: Yes DVT prophylaxis with Lovenox 30 mg
[2017-06-08] MEDS: INSULIN REGULAR 100 UNIT/ML SUBCUT SCH ×4 (11:52→21:42)
--- NOTE | 2017-06-08 13:23 | Pulmonology Progress Note ---
Pulmonary - PN: Subj Interval history: Patient is an 87-year-old black man that has severe COPD along with a cardiomyopathy. He came in with severe shortness of breath with at least a component of heart failure. He has done nicely over the past few days and is breathing much better. He says his cough and congestion have cleared nicely. He feels like his shortness of breath is much better. He feels like he could go home soon. Exam (Progress Note) - Constitutional Vitals: Period Temp Pulse Resp BP Sys/Lui Pulse Ox Last 24 Hr 96.6 F-98.4 F 66-108 16-21 117-135/61-77 95-99 Exam: General appearance: normal weight, no distress (The patient looks better and is sitting up and looks comfortable.) - Head Head exam: Present: normal inspection, normocephalic - Eye Eye exam: Present: EOMI. Absent: scleral icterus Pupils: Present: MILO - ENT ENT exam: Present: normal exam - Neck Neck exam: Present: other (He does have increased JVD). Absent: lymphadenopathy , thyromegaly - Respiratory Respiratory exam: Present: He has somewhat distant breath sounds but is moving air better and his wheezing has resolved. - Cardiovascular Cardiovascular exam: Present: irregular rhythm, JVD, systolic murmur, tachycardia - GI/Abdominal GI/Abdominal exam: Present: normal bowel sounds, soft. Absent: organomegaly, tenderness - Extremities Exam Extremities exam: Present: His leg swelling is better. - Neurological Exam Neurological exam: Present: alert, oriented X3, CN II-XII intact - Psychiatric Psychiatric exam: Present: normal affect - Skin Skin exam: Present: warm, dry Results - Labs CBC & BMP: 06/08/17 04:24 06/08/17 04:24 - Diagnostic Findings Procedure: Chest x-ray: image reviewed by me, report reviewed by me (Chest x- ray showed right middle lobe atelectasis with improvement of the CHF.) Assessment and Plan (1) Congestive heart failure Status: Acute Assessment and plan: The patient has a component of heart failure and is getting a little better. His volume status is much better now. Current Visit: No (2) Chronic kidney disease, stage 3 Status: Chronic Assessment and plan: Creatinine is 3.2 now. Current Visit: Yes (3) Acute exacerbation of chronic obstructive pulmonary disease (COPD) Status: Acute Assessment and plan: The patient does have severe COPD but looks like he is responding well to steroids and bronchodilators. He is breathing much more comfortably and his wheezing has cleared. Will start switching him to oral medicines Current Visit: Yes (4) Ischemic cardiomyopathy Status: Chronic Assessment and plan: The patient does have a significant cardiomyopathy. His chest x-ray is better with resolution of the CHF. Current Visit: Yes (5) Moderate mitral regurgitation Status: Chronic Assessment and plan: Patient has at least a component of heart failure from his mitral valve disease. Current Visit: Yes
--- NOTE | 2017-06-08 13:39 | Nephrology Progress Note ---
Nephrology - PN: Subj Interval history: Mr. Gibson is seen in follow-up of his azotemia. His creatinine is stable and no longer rising. He is off of diuretics for now and may have to resume those but for now is stable and I would continue to keep him off them if possible. He does have 2+ peripheral edema but is able to lie flat and breathe comfortably again if he has to go back on diuretics because of pulmonary volume overload he could certainly do that and we would have to accept what ever creatinine clear lungs resulted in. Exam (PN)-Nephrology - Vital Signs Vital signs: Period Temp Pulse Resp BP Sys/Lui Pulse Ox Last 24 Hr 96.6 F-98.4 F 66-108 16-21 117-135/61-77 95-99 - Lab 06/08/17 04:24 06/08/17 04:24 Most recent lab results ABG pH 7.419 (7.35-7.45) 06/03/17 18:19 ABG pCO2 33.1 MM HG (35-48) L 06/03/17 18:19 ABG pO2 104.0 MM HG (80-95) H 06/03/17 18:19 ABG HCO3 22.6 MMOL/L (20-26) 06/03/17 18:19 ABG O2 Saturation 97.8 % (95-100) 06/03/17 18:19 Calcium 7.9 MG/DL (8.5-10.1) L 06/08/17 04:24 Magnesium 2.1 MG/DL (1.8-2.4) 06/07/17 03:18 Assessment and Plan (1) Acute on chronic renal failure Status: Acute Current Visit: Yes Qualifiers: Acute renal failure type: unspecified Chronic kidney disease stage: stage 3 (moderate) Qualified Code(s): N17.9 - Acute kidney failure, unspecified; N18.3 - Chronic kidney disease, stage 3 (moderate) (2) COPD (chronic obstructive pulmonary disease) Status: Acute Current Visit: Yes
[2017-06-08] MEDS: THEOPHYLLINE ER (24 HR) 400 MG CAPSULE PO SCH (14:40)
[2017-06-08] MEDS: ENOXAPARIN 30 MG/0.3 ML SYRINGE SUBCUT SCH (21:43)
[2017-06-08] MEDS: ATORVASTATIN 40 MG TABLET PO SCH (21:43)
[2017-06-08] MEDS: cefTRIAXone 1,000 MG in SODIUM CHLORIDE 0.9% 100 ML IV SCH (21:44)
[2017-06-08] MEDS: AZITHROMYCIN INJ 500 MG in SODIUM CHLORIDE 0.9% 250 ML IV SCH (21:45)
[2017-06-09] MEDS: ALBUTEROL/IPRATROPIUM 3 ML NEB RESP TX SCH ×4 (02:29→14:20)
--- NOTE | 2017-06-09 08:18 | Pulmonology Progress Note ---
Pulmonary - PN: Subj Interval history: Patient is an 87-year-old black man that has severe COPD along with a cardiomyopathy. He came in with severe shortness of breath with at least a component of heart failure. He has done nicely over the past few days and is breathing much better. He says his cough and congestion have cleared nicely. He feels like his shortness of breath is much better. He said he had a good night and overall is feeling better. He says his shortness of breath is much better and he can probably go home soon Exam (Progress Note) - Constitutional Vitals: Period Temp Pulse Resp BP Sys/Lui Pulse Ox Last 24 Hr 97.3 F-98.3 F 60-111 16-22 108-146/53-80 95-99 Exam: General appearance: normal weight, no distress (The patient looks better and is sitting up and looks comfortable. He has no respiratory distress now.) - Head Head exam: Present: normal inspection, normocephalic - Eye Eye exam: Present: EOMI. Absent: scleral icterus Pupils: Present: MILO - ENT ENT exam: Present: normal exam - Neck Neck exam: Present: other (He does have increased JVD). Absent: lymphadenopathy , thyromegaly - Respiratory Respiratory exam: Present: He has somewhat distant breath sounds but is moving air better and his wheezing has resolved. - Cardiovascular Cardiovascular exam: Present: irregular rhythm, JVD, systolic murmur, tachycardia - GI/Abdominal GI/Abdominal exam: Present: normal bowel sounds, soft. Absent: organomegaly, tenderness - Extremities Exam Extremities exam: Present: His leg swelling is better. He has some chronic edema. - Neurological Exam Neurological exam: Present: alert, oriented X3, CN II-XII intact - Psychiatric Psychiatric exam: Present: normal affect - Skin Skin exam: Present: warm, dry Results - Labs CBC & BMP: 06/08/17 04:24 06/08/17 04:24 Assessment and Plan (1) Congestive heart failure Status: Acute Assessment and plan: The patient has a component of heart failure and is getting a little better. His volume status is much better now. Current Visit: No (2) Chronic kidney disease, stage 3 Status: Chronic Assessment and plan: Creatinine is 3.2 now. Current Visit: Yes (3) Acute exacerbation of chronic obstructive pulmonary disease (COPD) Status: Acute Assessment and plan: The patient does have severe COPD but looks like he is responding well to steroids and bronchodilators. He is breathing much more comfortably and his wheezing has cleared. Will start switching him to oral medicines. Overall he appears stable. Current Visit: Yes (4) Ischemic cardiomyopathy Status: Chronic Assessment and plan: The patient does have a significant cardiomyopathy. His chest x-ray is better with resolution of the CHF. Current Visit: Yes (5) Moderate mitral regurgitation Status: Chronic Assessment and plan: Patient has at least a component of heart failure from his mitral valve disease. Current Visit: Yes
[2017-06-09] MEDS: ASPIRIN CHEW 81 MG TABLET PO SCH (10:09)
[2017-06-09] MEDS: THEOPHYLLINE ER (24 HR) 400 MG CAPSULE PO SCH (10:09)
[2017-06-09] MEDS: POTASSIUM CHLORIDE 20 MEQ TABLET PO SCH (10:09)
[2017-06-09] MEDS: PANTOPRAZOLE 40 MG TABLET PO SCH (10:10)
[2017-06-09] MEDS: predniSONE 20 MG TABLET PO SCH (10:10)
[2017-06-09] MEDS: INSULIN REGULAR 100 UNIT/ML SUBCUT SCH ×2 (10:10→11:53)
[2017-06-09] MEDS: amLODIPine 10 MG TABLET PO SCH (10:10)
[2017-06-09] MEDS: hydrALAZINE 25 MG TABLET PO SCH ×2 (10:10→15:41)
[2017-06-09] MEDS: NEBIVOLOL 5 MG TABLET PO SCH (10:10)
[2017-06-09] MEDS: CLOPIDOGREL 75 MG TABLET PO SCH (10:10)
[2017-06-09] MEDS: BUDESONIDE/FORMOTEROL 160-4.5 INHALER 6 GM INH SCH (10:11)
--- NOTE | 2017-06-09 12:44 | Nephrology Progress Note ---
Nephrology - PN: Subj Interval history: Mr. Gibson is seen in follow-up of his azotemia. He is feeling well, breathing easily, and hopes to go home. I think discharge is fine. He says his is sick and he needs to be at home. I think his renal function will settle back down to his baseline of creatinine of about 2 over time. It appears that it rosa to 3.2 with diuresis. He may need to resume his diuretics but at this point he has 1+ peripheral edema and I think unless he become short of breath he can tolerate a little bit of peripheral edema. He should not need follow-up with us but will follow up with his regular physicians. Exam (PN)-Nephrology - Vital Signs Vital signs: Period Temp Pulse Resp BP Sys/Lui Pulse Ox Last 24 Hr 97.3 F-98.3 F 60-111 16-22 108-158/53-80 95-99 - Lab 06/08/17 04:24 06/08/17 04:24 Most recent lab results ABG pH 7.419 (7.35-7.45) 06/03/17 18:19 ABG pCO2 33.1 MM HG (35-48) L 06/03/17 18:19 ABG pO2 104.0 MM HG (80-95) H 06/03/17 18:19 ABG HCO3 22.6 MMOL/L (20-26) 06/03/17 18:19 ABG O2 Saturation 97.8 % (95-100) 06/03/17 18:19 Calcium 7.9 MG/DL (8.5-10.1) L 06/08/17 04:24 Magnesium 2.1 MG/DL (1.8-2.4) 06/07/17 03:18 Assessment and Plan (1) Acute on chronic renal failure Status: Acute Current Visit: Yes Qualifiers: Acute renal failure type: unspecified Chronic kidney disease stage: stage 3 (moderate) Qualified Code(s): N17.9 - Acute kidney failure, unspecified; N18.3 - Chronic kidney disease, stage 3 (moderate) (2) COPD (chronic obstructive pulmonary disease) Status: Acute Current Visit: Yes
--- NOTE | 2017-06-09 15:13 | Discharge Summary ---
Hospital Course - Hospital Course Hospital Course: 87-year-old -Polish male with history of chronic COPD, chronic diastolic congestive heart failure, severe chronic pulmonary hypertension, coronary disease with previous stents was admitted to intensive care unit for shortness of breath which was multifactorial mostly COPD exacerbation with wheezing but there was a component of acute on diastolic congestive heart failure as well. He has a component of heart block mostly due to being on dual beta-blockers and was switched to Bystolic he was admitted to the hospital service and pulmonology and cardiology were consulted. For his COPD exacerbation he was treated with bronchodilators steroids and nebs. For his acute on chronic diastolic congestive heart failure he was on IV diuretics. He also has problem with hypercholesterolemia and was started on Lipitor. With treatment he continued to improve and his breathing now is back to his baseline status and is not wheezing anymore. He also had acute kidney injury on chronic kidney disease stage IV. Nephrology was following and creatinine has improved and stable. For his deconditioning he received physical therapy. He has now reached maximal hospital benefit and being discharged home in improved and stable condition. Total discharge time was 46 minutes. - Time spent with patient Time with patient DS: Greater than 30 minutes Diagnosis - Discharge Diagnosis (1) Congestive heart failure Status: Resolved (2) Acute exacerbation of chronic obstructive airways disease Status: Resolved Discharge Plan - Discharge Data Condition at Discharge: Stable Discharge Diet: advance to your usual diet Activity: resume usual activities as tolerated Hygiene: no restrictions Weight Bearing at Discharge: full weight bearing - Discharge Medications New hydrALAZINE TAB [Apresoline Tab] 25 mg PO TID #90 tablet Nebivolol [Bystolic] 10 mg PO DAILY #30 tablet Pantoprazole Tab [Protonix Tab] 40 mg PO DAILY #30 tablet predniSONE TAB [PredniSONE] 20 mg PO DAILY #30 tablet Aspirin Chew Tab 81 mg PO DAILY #30 tablet Budesonide/Formoterol 160-4.5 [Symbicort 160-4.5] 2 puff INH BID #1 inhaler Theophylline ER Cap (24 Hr) [Jaison-24] 400 mg PO DAILY #30 capsule Continue Albuterol Sulfate [Ventolin HFA] 2 puff INH Q6HR PRN PRN Reason: Shortness Of Breath Atorvastatin [Lipitor] 40 mg PO BEDTIME Aspirin EC Tab 81 mg PO QAM Nitroglycerin Sl Tab [Nitrostat] 0.4 mg SL Q5M PRN #100 tablet PRN Reason: Chest Pain amLODIPine [Norvasc] 10 mg PO QAM Clopidogrel [Plavix] 75 mg PO QAM Discontinued Nebivolol HCl [Bystolic] 20 mg PO BID Carvedilol [Carvedilol] 12.5 mg PO BID hydrALAZINE TAB [Apresoline Tab] 100 mg PO TID Ticagrelor [Brilinta] 90 mg PO BID Furosemide [Furosemide] 20 mg PO DAILY PRN PRN Reason: Edema - Follow Up or Referral Follow Up: No PCP,. [Physician] - 2 Weeks - Forms/Instructions Exam - Constitutional Vitals: Period Temp Pulse Resp BP Sys/Lui Pulse Ox Last 24 Hr 97.3 F-98.3 F 60-111 16-22 108-158/53-80 95-99 Exam: General: No Acute Distress HEENT: Normocephalic, atraumatic, Extra ocular movements intact Neck: Supple, No JVD Chest: Clear to auscultation B/L CV: S1 + S2 audible without murmur, gallop or rub Abd: soft, NT, Non-distended, BS + Ext: No edema Skin: No purpura, bruising or rash Rheumatologic: No Joint deformities Neurologic: no gross sensory deficits Discharge Results Procedures and tests throughout hospitalization: Pending Orders 06/10/17 04:00 Basic Metabolic Panel IN AM Labs on day of discharge: Labs from last 24 hours 06/09/17 06/09/17 06/08/17 11:12 07:22 19:49 POC Glucose 118 H 106 235 H 06/08/17 16:20 POC Glucose 203 H DS: Provider Date of admission: 06/03/17 20:11 Primary care physician: Layla Steen, Attending physician on admission: Karlos Casey MD Consults: 06/03/17 20:31 Consult to Physician [CONS] Routine 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 Consulting Provider: Get Gomez Consult Notification Comment: notified Taylor with [facility] 06/04/17 @ 0800 06/03/17 21:41 Consult to Physician [CONS] Routine Comment: severe copd exacerbation Consulting Provider: Scar Tobias Consult to Specialist Group: Pulmonology Person Notified: Missy Date Notified: 06/04/17 Time Notified: 09:33 Consult Notification Comment: Talked to Missy Consult to Pulmonary Rehabilitation [CONS] Routine Reason for Pulmonary Rehabilitation: COPD 06/05/17 07:28 Consult to Physician [CONS] Routine Comment: maria del carmen on [facility] Consulting Provider: Rikki Packer Person Notified: Radha Date Notified: 06/05/17 Time Notified: 09:57 Consult Notification Comment: will notify Dr. Packer 06/05/17 11:37 Consult to Occupational Therapy [CONS] Routine Reason for Occupational Therapy: Evaluate and Treat Consult to Physical Therapy [CONS] Routine Reason for Physical Therapy: Evaluate and Treat Discharging clinician: Jackie Olsen MD
[2017-06-09 15:58] VITALS: BP 127/71
== END 2017-06-09 16:41 | disposition home or self-care (01) | DRG 291 ==
LOC: N.ED 17:41 → N.EDINP 20:11 → SUATTDRO 20:11 → N.CC 20:22 → N.2E 06-05 17:51
PROVIDERS: ADMIT Internal Medicine; ATTEND Hospitalist

== ENCOUNTER 2017-10-22 21:48 | Inpatient (IN) ==
[2017-10-22] MEDS ORDERED: ALBUTEROL/IPRATROPIUM 3 ML NEB RESP TX STA (22:14)
[2017-10-22] MEDS ORDERED: methylPREDNISolone SOD SUC 125 MG/2 ML VIAL IV STA (22:14)
[2017-10-22] MEDS ORDERED: hydrALAZINE 20 MG/1 ML VIAL IV STA (22:16)
[2017-10-22] MEDS ORDERED: LABETALOL 20 MG/4 ML SYRINGE IV STA (22:16)
[2017-10-22 22:21] LABS: Basophils % 0.8 % (0.0-0.8); Eosinophils # 0.1 10*3/uL (0.0-0.87); Eosinophils % 1.3 % (0.00-10.9); Hematocrit 44.1 VOL% (42.0-52.0); Hemoglobin 14.6 GM/DL (14.0-18.0); Immature Granulocytes % 0.3 %; Immature Granulocytes Absolute 0.01 #; Lymphocytes % 25.8 % (21.2-54.2); Mean Corpuscular HGB Conc 33.1 GM/DL (32-36); Mean Corpuscular Hemoglobin 31 PG (27-34); Mean Platelet Volume 9.7 FL (9.6-12.0); Monocytes # 0.7 10*3/uL (0.11-0.8); Monocytes % 17.5 % (1.7-12.7); Neutrophils # 2.1 10*3/uL (1.4-7.4); Neutrophils % 54.3 % (38.7-73.9); Platelet Count 206 T/CUMM (130-400); Red Blood Count 4.74 MC/CUMM (3.8-5.5); Red Cell Distribution Width 16.7 % (9.3-17.3); White Blood Count 3.8 T/CUMM (4-12)
[2017-10-22 22:30] LABS: Alanine Aminotransferase 13 U/L (16-61); Albumin 3.2 G/DL (3.4-5.0); Alkaline Phosphatase 104 U/L (45-117); Aspartate Amino Transferase 21 U/L (0-37); Blood Urea Nitrogen 19 MG/DL (7-18); Glucose 79 MG/DL (74-106); Osmolality,Calculated 288.7 MOS/KG (273-304); Potassium 4.1 MMOL/L (3.5-5.1); Sodium 145 MMOL/L (136-145); Total Protein 6.6 G/DL (6.4-8.3)
[2017-10-22 22:39] LABS: Lactic Acid 2.6 MMOL/L (0.4-2.0); Troponin I Only 0.099 NG/ML (0.00-0.045)
[2017-10-22] MEDS ORDERED: LABETALOL 20 MG/4 ML SYRINGE IV ONE (22:52)
[2017-10-22] MEDS ORDERED: methylPREDNISolone SOD SUC 125 MG/2 ML VIAL ONE (22:52)
[2017-10-22] MEDS ORDERED: hydrALAZINE 20 MG/1 ML VIAL ONE (22:52)
[2017-10-22 23:27] LABS: Band Neutrophils 2 % (0-10); Lymphocytes 36 % (20-55); Segmented Neutrophils 62 % (50-85); Total Cells Counted 100
[2017-10-22 23:28] LABS: Platelet Estimate Normal
[2017-10-22] MEDS ORDERED: FUROSEMIDE 40 MG/4 ML VIAL IV STA (23:52)
[2017-10-23] MEDS ORDERED: FUROSEMIDE 40 MG/4 ML VIAL ONE ×2 (00:10→07:58)
[2017-10-23] MEDS ORDERED: hydrALAZINE 20 MG/1 ML VIAL IV STA (00:11)
[2017-10-23] MEDS ORDERED: hydrALAZINE 20 MG/1 ML VIAL ONE (00:37)
[2017-10-23] MEDS ORDERED: ACETAMINOPHEN 325 MG TABLET PO PRN (01:45)
[2017-10-23] MEDS ORDERED: MAGNESIUM SULF RIDER 2 GM in PREMIX 1 EACH IV PRN (01:45)
[2017-10-23] MEDS ORDERED: MAGNESIUM SULF RIDER 4 GM in PREMIX 1 EACH IV PRN (01:45)
[2017-10-23] MEDS ORDERED: ONDANSETRON 4 MG/2 ML VIAL IV PRN (01:45)
[2017-10-23] MEDS ORDERED: LEVOFLOXACIN INJ 500 MG in PREMIX 1 EACH IV SCH (02:00)
[2017-10-23] MEDS ORDERED: methylPREDNISolone SOD SUC 40 MG/1 ML VIAL ONE (03:09)
[2017-10-23] MEDS ORDERED: LEVOFLOXACIN INJ 100 ML IV ONE (03:09)
[2017-10-23] MEDS: methylPREDNISolone SOD SUC 40 MG/1 ML VIAL IV SCH ×3 (03:15→20:21)
[2017-10-23] MEDS: ALBUTEROL/IPRATROPIUM 3 ML NEB RESP TX SCH ×4 (07:04→23:51)
[2017-10-23 07:13] LABS: Albumin 2.9 G/DL (3.4-5.0); Bilirubin,Total 1.5 MG/DL (0.2-1.0); Osmolality,Calculated 289.8 MOS/KG (273-304); Potassium 4.1 MMOL/L (3.5-5.1)
[2017-10-23] MEDS: FUROSEMIDE 40 MG/4 ML VIAL IV SCH ×2 (08:01→16:58)
[2017-10-23] MEDS ORDERED: ENOXAPARIN 40 MG/0.4 ML SYRINGE ONE (08:15)
[2017-10-23] MEDS ORDERED: CLOPIDOGREL 75 MG TABLET ONE (08:16)
[2017-10-23] MEDS ORDERED: PANTOPRAZOLE 40 MG TABLET PO ONE (08:16)
[2017-10-23] MEDS: amLODIPine 10 MG TABLET PO SCH (08:38)
[2017-10-23] MEDS: CLOPIDOGREL 75 MG TABLET PO SCH (08:46)
[2017-10-23] MEDS: NEBIVOLOL 5 MG TABLET PO SCH (08:46)
[2017-10-23] MEDS: ENOXAPARIN 40 MG/0.4 ML SYRINGE SUBCUT SCH (08:46)
[2017-10-23] MEDS: ASPIRIN EC 81 MG TABLET PO SCH (08:47)
[2017-10-23] MEDS: THEOPHYLLINE ER (24 HR) 400 MG CAPSULE PO SCH (08:47)
[2017-10-23] MEDS: hydrALAZINE 25 MG TABLET PO SCH ×3 (08:47→20:42)
[2017-10-23] MEDS: BUDESONIDE/FORMOTEROL 160-4.5 INHALER 6 GM INH SCH ×2 (08:48→20:41)
[2017-10-23] MEDS ORDERED: PANTOPRAZOLE 40 MG TABLET PO SCH (09:00)
[2017-10-23] MEDS: cefTRIAXone 2,000 MG in SODIUM CHLORIDE 0.9% 100 ML IV SCH (17:00)
[2017-10-23] MEDS: AZITHROMYCIN INJ 500 MG in SODIUM CHLORIDE 0.9% 250 ML IV SCH (18:17)
[2017-10-23] MEDS: ATORVASTATIN 40 MG TABLET PO SCH (20:40)
[2017-10-24] MEDS: methylPREDNISolone SOD SUC 40 MG/1 ML VIAL IV SCH (04:17)
[2017-10-24] MEDS: ALBUTEROL/IPRATROPIUM 3 ML NEB RESP TX SCH ×3 (08:30→19:34)
[2017-10-24] MEDS: CLOPIDOGREL 75 MG TABLET PO SCH (10:14)
[2017-10-24] MEDS: hydrALAZINE 25 MG TABLET PO SCH ×3 (10:14→21:25)
[2017-10-24] MEDS: FUROSEMIDE 40 MG TABLET PO SCH ×2 (10:14→16:44)
[2017-10-24] MEDS: THEOPHYLLINE ER (24 HR) 400 MG CAPSULE PO SCH (10:14)
[2017-10-24] MEDS: NEBIVOLOL 5 MG TABLET PO SCH (10:14)
[2017-10-24] MEDS: amLODIPine 10 MG TABLET PO SCH (10:14)
[2017-10-24] MEDS: ASPIRIN EC 81 MG TABLET PO SCH (10:14)
[2017-10-24] MEDS: PANTOPRAZOLE 40 MG TABLET PO SCH (10:15)
[2017-10-24] MEDS: ENOXAPARIN 40 MG/0.4 ML SYRINGE SUBCUT SCH (10:15)
[2017-10-24] MEDS: predniSONE 20 MG TABLET PO SCH (10:16)
[2017-10-24] MEDS: BUDESONIDE/FORMOTEROL 160-4.5 INHALER 6 GM INH SCH ×2 (10:21→21:24)
[2017-10-24] MEDS: cefTRIAXone 2,000 MG in SODIUM CHLORIDE 0.9% 100 ML IV SCH (16:44)
[2017-10-24] MEDS: AZITHROMYCIN INJ 500 MG in SODIUM CHLORIDE 0.9% 250 ML IV SCH (17:48)
[2017-10-24] MEDS: ATORVASTATIN 40 MG TABLET PO SCH (21:24)
[2017-10-25] MEDS: ALBUTEROL/IPRATROPIUM 3 ML NEB RESP TX SCH ×4 (00:35→20:15)
[2017-10-25] MEDS: POLYETHYLENE GLYCOL POWDER 17 GM PACK PO SCH ×2 (06:08→08:54)
[2017-10-25 06:34] LABS: Hematocrit 36.8 VOL% (42.0-52.0); Hemoglobin 12.7 GM/DL (14.0-18.0); Immature Granulocytes % 0.6 %; Immature Granulocytes Absolute 0.04 #; Lymphocytes # 0.3 10*3/uL (1.4-4.0); Lymphocytes % 3.6 % (21.2-54.2); Mean Corpuscular HGB Conc 34.5 GM/DL (32-36); Mean Corpuscular Hemoglobin 31 PG (27-34); Mean Corpuscular Volume 88.7 FL (87-102); Mean Platelet Volume 9.5 FL (9.6-12.0); Monocytes # 0.7 10*3/uL (0.11-0.8); Monocytes % 9.6 % (1.7-12.7); Neutrophils # 6.3 10*3/uL (1.4-7.4); Neutrophils % 86.2 % (38.7-73.9); Platelet Count 220 T/CUMM (130-400); Red Blood Count 4.15 MC/CUMM (3.8-5.5); Red Cell Distribution Width 16.7 % (9.3-17.3); White Blood Count 7.3 T/CUMM (4-12)
[2017-10-25 06:55] LABS: Calcium 8.5 MG/DL (8.5-10.1); Osmolality,Calculated 284.7 MOS/KG (273-304); Potassium 4.1 MMOL/L (3.5-5.1)
[2017-10-25 07:32] LABS: Band Neutrophils 1 % (0-10); Giant Platelets Few; Hypochromasia 1+; Lymphocytes 3 % (20-55); Ovalocytes Slight; Platelet Estimate Adequate; Segmented Neutrophils 86 % (50-85); Total Cells Counted 100
[2017-10-25] MEDS: NEBIVOLOL 5 MG TABLET PO SCH (08:54)
[2017-10-25] MEDS: THEOPHYLLINE ER (24 HR) 400 MG CAPSULE PO SCH (08:54)
[2017-10-25] MEDS: CLOPIDOGREL 75 MG TABLET PO SCH (08:54)
[2017-10-25] MEDS: predniSONE 20 MG TABLET PO SCH (08:54)
[2017-10-25] MEDS: amLODIPine 10 MG TABLET PO SCH (08:54)
[2017-10-25] MEDS: ENOXAPARIN 40 MG/0.4 ML SYRINGE SUBCUT SCH (08:55)
[2017-10-25] MEDS: BUDESONIDE/FORMOTEROL 160-4.5 INHALER 6 GM INH SCH ×2 (08:55→20:28)
[2017-10-25] MEDS: FUROSEMIDE 40 MG TABLET PO SCH (08:55)
[2017-10-25] MEDS: PANTOPRAZOLE 40 MG TABLET PO SCH (08:55)
[2017-10-25] MEDS: hydrALAZINE 25 MG TABLET PO SCH ×3 (08:55→20:28)
[2017-10-25] MEDS: ASPIRIN EC 81 MG TABLET PO SCH (08:55)
[2017-10-25] MEDS: cefTRIAXone 2,000 MG in SODIUM CHLORIDE 0.9% 100 ML IV SCH (16:35)
[2017-10-25] MEDS: ATORVASTATIN 40 MG TABLET PO SCH (20:28)
[2017-10-26] MEDS: ALBUTEROL/IPRATROPIUM 3 ML NEB RESP TX SCH ×3 (03:29→13:52)
[2017-10-26 07:12] LABS: Calcium 8.3 MG/DL (8.5-10.1); Osmolality,Calculated 286.8 MOS/KG (273-304); Potassium 4.3 MMOL/L (3.5-5.1)
[2017-10-26] MEDS ORDERED: AZITHROMYCIN 250 MG TABLET PO SCH (09:00)
[2017-10-26] MEDS ORDERED: FUROSEMIDE 40 MG TABLET PO SCH (09:00)
[2017-10-26] MEDS: NEBIVOLOL 5 MG TABLET PO SCH (09:43)
[2017-10-26] MEDS: ASPIRIN EC 81 MG TABLET PO SCH (09:43)
[2017-10-26] MEDS: hydrALAZINE 25 MG TABLET PO SCH (09:43)
[2017-10-26] MEDS: POLYETHYLENE GLYCOL POWDER 17 GM PACK PO SCH (09:44)
[2017-10-26] MEDS: ENOXAPARIN 40 MG/0.4 ML SYRINGE SUBCUT SCH (09:44)
[2017-10-26] MEDS: amLODIPine 10 MG TABLET PO SCH (09:44)
[2017-10-26] MEDS: PANTOPRAZOLE 40 MG TABLET PO SCH (09:45)
[2017-10-26] MEDS: THEOPHYLLINE ER (24 HR) 400 MG CAPSULE PO SCH (09:45)
[2017-10-26] MEDS: BUDESONIDE/FORMOTEROL 160-4.5 INHALER 6 GM INH SCH (09:45)
[2017-10-26] MEDS: predniSONE 20 MG TABLET PO SCH (09:45)
[2017-10-26] MEDS: CLOPIDOGREL 75 MG TABLET PO SCH (09:45)
[2017-10-26 13:59] VITALS: BP 123/60
== END 2017-10-26 15:00 | disposition home health service (06) | DRG 291 ==
LOC: EDUNIT# → EDBD → N.ED 21:48 → SUATTDRO 10-23 01:34 → N.EDINP 10-23 01:34 → N.5E 10-23 10:28
PROVIDERS: ADMIT Internal Medicine Infectious Disease; ATTEND Internal Medicine

== ENCOUNTER 2017-11-03 15:28 | Inpatient (IN) ==
[2017-11-03] MEDS ORDERED: DILTIAZEM 50 MG/10 ML VIAL IV STA (16:21)
[2017-11-03] MEDS ORDERED: FUROSEMIDE 40 MG/4 ML VIAL IV STA (16:21)
[2017-11-03] MEDS ORDERED: ALBUTEROL/IPRATROPIUM 3 ML NEB RESP TX STA (16:23)
[2017-11-03] MEDS ORDERED: DILTIAZEM 100 MG VIAL.ADD IV ONE (16:30)
[2017-11-03] MEDS ORDERED: FUROSEMIDE 40 MG/4 ML VIAL ONE (16:30)
[2017-11-03] MEDS ORDERED: SODIUM CHLORIDE 0.9% 100 ML IV ONE (16:32)
[2017-11-03] MEDS: DILTIAZEM INJ 100 MG in SODIUM CHLORIDE 0.9% 100 ML IV SCH (16:45)
[2017-11-03 17:43] LABS: Hematocrit 40.1 VOL% (42.0-52.0); Hemoglobin 13.7 GM/DL (14.0-18.0); Immature Granulocytes % 0.8 %; Immature Granulocytes Absolute 0.04 #; Lymphocytes # 0.8 10*3/uL (1.4-4.0); Lymphocytes % 16.3 % (21.2-54.2); Mean Corpuscular HGB Conc 34.2 GM/DL (32-36); Mean Corpuscular Hemoglobin 30 PG (27-34); Mean Corpuscular Volume 88.3 FL (87-102); Mean Platelet Volume 10.5 FL (9.6-12.0); Monocytes # 0.6 10*3/uL (0.11-0.8); Monocytes % 12.2 % (1.7-12.7); Neutrophils # 3.6 10*3/uL (1.4-7.4); Neutrophils % 70.7 % (38.7-73.9); Platelet Count 143 T/CUMM (130-400); Red Blood Count 4.54 MC/CUMM (3.8-5.5); Red Cell Distribution Width 16.2 % (9.3-17.3)
[2017-11-03 18:06] LABS: Calcium 8.9 MG/DL (8.5-10.1); Osmolality,Calculated 297.3 MOS/KG (273-304); Potassium 4.1 MMOL/L (3.5-5.1); Total Protein 6.1 G/DL (6.4-8.3)
[2017-11-03] MEDS ORDERED: ACETAMINOPHEN 325 MG TABLET PO PRN (18:08)
[2017-11-03] MEDS ORDERED: ALBUTEROL 2.5 MG/3 ML NEB RESP TX PRN (18:08)
[2017-11-03] MEDS ORDERED: ONDANSETRON 4 MG/2 ML VIAL IV PRN (18:08)
[2017-11-03 18:10] LABS: Troponin I Only 0.363 NG/ML (0.00-0.045)
[2017-11-03] MEDS: methylPREDNISolone SOD SUC 40 MG/1 ML VIAL IV SCH (19:05)
[2017-11-03] MEDS: ALBUTEROL/IPRATROPIUM 3 ML NEB RESP TX SCH (20:24)
[2017-11-03] MEDS ORDERED: GLUCAGON 1 MG VIAL IM PRN (21:52)
[2017-11-03] MEDS ORDERED: DEXTROSE 50% 25 GM/50 ML VIAL IV PRN (21:52)
[2017-11-03] MEDS: INSULIN REGULAR 100 UNIT/ML SUBCUT SCH (22:22)
[2017-11-03] MEDS: APIXABAN 5 MG TABLET PO SCH (22:37)
[2017-11-03] MEDS: ATORVASTATIN 40 MG TABLET PO SCH (22:37)
[2017-11-03] MEDS: cefTRIAXone 1,000 MG in SYRINGE 1 EACH IV SCH (22:38)
[2017-11-03] MEDS: BUDESONIDE/FORMOTEROL 160-4.5 INHALER 6 GM INH SCH (22:38)
[2017-11-04] MEDS: ALBUTEROL/IPRATROPIUM 3 ML NEB RESP TX SCH ×5 (00:25→23:52)
[2017-11-04] MEDS: methylPREDNISolone SOD SUC 40 MG/1 ML VIAL IV SCH ×4 (03:27→17:20)
[2017-11-04] MEDS: DILTIAZEM INJ 100 MG in SODIUM CHLORIDE 0.9% 100 ML IV SCH ×2 (04:34→11:07)
[2017-11-04 05:42] LABS: Hematocrit 36.5 VOL% (42.0-52.0); Hemoglobin 13.3 GM/DL (14.0-18.0); Immature Granulocytes Absolute 0.05 #; Lymphocytes # 0.5 10*3/uL (1.4-4.0); Lymphocytes % 9.2 % (21.2-54.2); Mean Corpuscular HGB Conc 36.4 GM/DL (32-36); Mean Corpuscular Hemoglobin 31 PG (27-34); Mean Corpuscular Volume 84.5 FL (87-102); Mean Platelet Volume 9.8 FL (9.6-12.0); Monocytes # 0.3 10*3/uL (0.11-0.8); Monocytes % 5.1 % (1.7-12.7); Neutrophils # 4.3 10*3/uL (1.4-7.4); Neutrophils % 84.7 % (38.7-73.9); Platelet Count 140 T/CUMM (130-400); Red Blood Count 4.32 MC/CUMM (3.8-5.5); Red Cell Distribution Width 15.9 % (9.3-17.3); White Blood Count 5.1 T/CUMM (4-12)
[2017-11-04 06:08] LABS: Hypochromasia 1+
[2017-11-04 06:09] LABS: Microcytosis Slight; Ovalocytes Slight; Target Cells Few
[2017-11-04 06:10] LABS: Platelet Estimate Adequate
[2017-11-04 06:46] LABS: Albumin 2.9 G/DL (3.4-5.0); Calcium 8.3 MG/DL (8.5-10.1); Osmolality,Calculated 300.1 MOS/KG (273-304); Potassium 3.7 MMOL/L (3.5-5.1); Total Protein 5.8 G/DL (6.4-8.3)
[2017-11-04] MEDS: PANTOPRAZOLE 40 MG TABLET PO SCH (08:58)
[2017-11-04] MEDS: FUROSEMIDE 40 MG/4 ML VIAL IV SCH ×2 (08:58→15:58)
[2017-11-04] MEDS: APIXABAN 5 MG TABLET PO SCH ×2 (08:58→21:45)
[2017-11-04] MEDS: amLODIPine 5 MG TABLET PO SCH (08:58)
[2017-11-04] MEDS: BUDESONIDE/FORMOTEROL 160-4.5 INHALER 6 GM INH SCH (08:59)
[2017-11-04] MEDS: INSULIN REGULAR 100 UNIT/ML SUBCUT SCH ×4 (08:59→21:45)
[2017-11-04] MEDS ORDERED: FUROSEMIDE 40 MG/4 ML VIAL IV SCH (09:00)
[2017-11-04] MEDS ORDERED: DILTIAZEM 60 MG TABLET PO SCH (13:30)
[2017-11-04] MEDS ORDERED: methylPREDNISolone SOD SUC 40 MG/1 ML VIAL IV SCH (14:00)
[2017-11-04] MEDS: NEBIVOLOL 10 MG TABLET PO SCH (15:58)
[2017-11-04] MEDS: ATORVASTATIN 40 MG TABLET PO SCH (21:45)
[2017-11-05] MEDS: methylPREDNISolone SOD SUC 40 MG/1 ML VIAL IV SCH ×5 (00:04→22:22)
[2017-11-05] MEDS: BUDESONIDE/FORMOTEROL 160-4.5 INHALER 6 GM INH SCH ×3 (00:04→22:20)
[2017-11-05] MEDS: DILTIAZEM INJ 100 MG in SODIUM CHLORIDE 0.9% 100 ML IV SCH ×2 (00:05→00:06)
[2017-11-05] MEDS: ALBUTEROL/IPRATROPIUM 3 ML NEB RESP TX SCH ×5 (03:57→19:39)
[2017-11-05 04:57] LABS: Basophils % 0.1 % (0.0-0.8); Hematocrit 33.4 VOL% (42.0-52.0); Hemoglobin 11.8 GM/DL (14.0-18.0); Immature Granulocytes % 0.6 %; Immature Granulocytes Absolute 0.04 #; Lymphocytes # 0.5 10*3/uL (1.4-4.0); Lymphocytes % 6.7 % (21.2-54.2); Mean Corpuscular HGB Conc 35.3 GM/DL (32-36); Mean Corpuscular Hemoglobin 30 PG (27-34); Mean Corpuscular Volume 85.6 FL (87-102); Monocytes # 0.3 10*3/uL (0.11-0.8); Monocytes % 4.7 % (1.7-12.7); Neutrophils # 6.3 10*3/uL (1.4-7.4); Neutrophils % 87.9 % (38.7-73.9); Platelet Count 136 T/CUMM (130-400); Red Cell Distribution Width 16.2 % (9.3-17.3); White Blood Count 7.2 T/CUMM (4-12)
[2017-11-05 05:19] LABS: Target Cells Few
[2017-11-05 05:20] LABS: Elliptocytes 1+; Hypochromasia 1+; Microcytosis 1+
[2017-11-05 05:21] LABS: Platelet Estimate Adequate
[2017-11-05 05:51] LABS: Calcium 7.7 MG/DL (8.5-10.1); Osmolality,Calculated 295.3 MOS/KG (273-304); Potassium 3.4 MMOL/L (3.5-5.1)
[2017-11-05] MEDS: INSULIN REGULAR 100 UNIT/ML SUBCUT SCH ×4 (08:43→22:14)
[2017-11-05] MEDS: FUROSEMIDE 40 MG/4 ML VIAL IV SCH ×2 (08:44→16:34)
[2017-11-05] MEDS: APIXABAN 5 MG TABLET PO SCH ×2 (08:44→22:13)
[2017-11-05] MEDS: PANTOPRAZOLE 40 MG TABLET PO SCH (08:44)
[2017-11-05] MEDS: amLODIPine 5 MG TABLET PO SCH (11:21)
[2017-11-05] MEDS: DILTIAZEM 60 MG TABLET PO SCH (11:48)
[2017-11-05] MEDS: NEBIVOLOL 10 MG TABLET PO SCH (11:48)
[2017-11-05] MEDS: POTASSIUM CHLORIDE 20 MEQ TABLET PO PRN ×3 (11:49→16:33)
[2017-11-05] MEDS: ATORVASTATIN 40 MG TABLET PO SCH (22:13)
[2017-11-05] MEDS: cefTRIAXone 1,000 MG in SYRINGE 1 EACH IV SCH ×2 (22:19)
[2017-11-06] MEDS: ALBUTEROL/IPRATROPIUM 3 ML NEB RESP TX SCH ×7 (00:21→23:43)
[2017-11-06 05:17] LABS: Hematocrit 32.2 VOL% (42.0-52.0); Hemoglobin 11.4 GM/DL (14.0-18.0); Immature Granulocytes % 0.6 %; Immature Granulocytes Absolute 0.06 #; Lymphocytes # 0.3 10*3/uL (1.4-4.0); Lymphocytes % 3.2 % (21.2-54.2); Mean Corpuscular HGB Conc 35.4 GM/DL (32-36); Mean Corpuscular Hemoglobin 31 PG (27-34); Mean Corpuscular Volume 86.3 FL (87-102); Mean Platelet Volume 10.1 FL (9.6-12.0); Monocytes # 0.5 10*3/uL (0.11-0.8); Monocytes % 4.2 % (1.7-12.7); Neutrophils # 9.9 10*3/uL (1.4-7.4); Platelet Count 132 T/CUMM (130-400); Red Blood Count 3.73 MC/CUMM (3.8-5.5); Red Cell Distribution Width 16.3 % (9.3-17.3); White Blood Count 10.8 T/CUMM (4-12)
[2017-11-06 05:43] LABS: Calcium 7.6 MG/DL (8.5-10.1); Osmolality,Calculated 295.5 MOS/KG (273-304); Potassium 3.6 MMOL/L (3.5-5.1)
[2017-11-06 05:54] LABS: Risk Ratio 1.7; VLDL CHOLESTEROL 10.2 MG/DL
[2017-11-06 06:16] LABS: Giant Platelets Few; Hypochromasia 1+; Lymphocytes 4 % (20-55); Microcytosis Slight; Ovalocytes Slight; Platelet Estimate Normal; Segmented Neutrophils 91 % (50-85); Total Cells Counted 100
[2017-11-06] MEDS: methylPREDNISolone SOD SUC 40 MG/1 ML VIAL IV SCH ×4 (06:30→23:24)
[2017-11-06] MEDS: INSULIN REGULAR 100 UNIT/ML SUBCUT SCH ×4 (09:42→20:54)
[2017-11-06] MEDS: PANTOPRAZOLE 40 MG TABLET PO SCH (09:43)
[2017-11-06] MEDS: FUROSEMIDE 40 MG/4 ML VIAL IV SCH ×2 (09:43→17:11)
[2017-11-06] MEDS: DILTIAZEM 60 MG TABLET PO SCH (09:43)
[2017-11-06] MEDS: NEBIVOLOL 10 MG TABLET PO SCH (09:44)
[2017-11-06] MEDS: APIXABAN 5 MG TABLET PO SCH ×2 (09:44→20:52)
[2017-11-06] MEDS: BUDESONIDE/FORMOTEROL 160-4.5 INHALER 6 GM INH SCH ×2 (09:47→21:01)
[2017-11-06] MEDS ORDERED: FUROSEMIDE 40 MG/4 ML VIAL IV ONE (11:41)
[2017-11-06] MEDS: POTASSIUM CHLORIDE 20 MEQ TABLET PO PRN ×2 (11:53→17:12)
[2017-11-06] MEDS: ATORVASTATIN 40 MG TABLET PO SCH (20:52)
[2017-11-06] MEDS: cefTRIAXone 1,000 MG in SYRINGE 1 EACH IV SCH (21:00)
[2017-11-07] MEDS: ALBUTEROL/IPRATROPIUM 3 ML NEB RESP TX SCH ×5 (03:18→20:02)
[2017-11-07 05:23] LABS: Hematocrit 32.8 VOL% (42.0-52.0); Hemoglobin 11.1 GM/DL (14.0-18.0); Immature Granulocytes % 0.6 %; Immature Granulocytes Absolute 0.06 #; Lymphocytes # 0.2 10*3/uL (1.4-4.0); Lymphocytes % 1.9 % (21.2-54.2); Mean Corpuscular HGB Conc 33.8 GM/DL (32-36); Mean Corpuscular Hemoglobin 30 PG (27-34); Mean Corpuscular Volume 88.4 FL (87-102); Mean Platelet Volume 9.5 FL (9.6-12.0); Monocytes # 0.4 10*3/uL (0.11-0.8); Monocytes % 3.6 % (1.7-12.7); Neutrophils # 9.4 10*3/uL (1.4-7.4); Neutrophils % 93.9 % (38.7-73.9); Platelet Count 128 T/CUMM (130-400); Red Blood Count 3.71 MC/CUMM (3.8-5.5); Red Cell Distribution Width 16.1 % (9.3-17.3)
[2017-11-07] MEDS: methylPREDNISolone SOD SUC 40 MG/1 ML VIAL IV SCH ×3 (05:41→16:44)
[2017-11-07 05:47] LABS: Calcium 7.8 MG/DL (8.5-10.1); Osmolality,Calculated 294.8 MOS/KG (273-304); Potassium 3.4 MMOL/L (3.5-5.1)
[2017-11-07 06:43] LABS: Hypochromasia Slight; Lymphocytes 1 % (20-55); Microcytosis 1+; Segmented Neutrophils 95 % (50-85); Total Cells Counted 100
[2017-11-07 07:35] LABS: Platelet Estimate Decreased
[2017-11-07] MEDS: INSULIN REGULAR 100 UNIT/ML SUBCUT SCH ×4 (08:09→21:19)
[2017-11-07] MEDS: NEBIVOLOL 10 MG TABLET PO SCH (08:10)
[2017-11-07] MEDS: PANTOPRAZOLE 40 MG TABLET PO SCH (08:10)
[2017-11-07] MEDS: APIXABAN 5 MG TABLET PO SCH (08:10)
[2017-11-07] MEDS: DILTIAZEM 60 MG TABLET PO SCH (08:10)
[2017-11-07] MEDS: FUROSEMIDE 40 MG/4 ML VIAL IV SCH ×2 (08:11→16:39)
[2017-11-07] MEDS: BUDESONIDE/FORMOTEROL 160-4.5 INHALER 6 GM INH SCH ×2 (08:16→21:36)
[2017-11-07] MEDS ORDERED: POTASSIUM CHLORIDE 20 MEQ TABLET PO ONE (09:04)
[2017-11-07] MEDS: metOLazone 2.5 MG TABLET PO SCH (09:27)
[2017-11-07] MEDS: ATORVASTATIN 40 MG TABLET PO SCH (21:19)
[2017-11-07] MEDS: APIXABAN 2.5 MG TABLET PO SCH (21:19)
[2017-11-07] MEDS: cefTRIAXone 1,000 MG in SYRINGE 1 EACH IV SCH (21:20)
[2017-11-08] MEDS: ALBUTEROL/IPRATROPIUM 3 ML NEB RESP TX SCH ×7 (00:30→23:26)
[2017-11-08] MEDS: methylPREDNISolone SOD SUC 40 MG/1 ML VIAL IV SCH ×3 (00:58→16:32)
[2017-11-08 05:37] LABS: Hematocrit 31.7 VOL% (42.0-52.0); Hemoglobin 11.4 GM/DL (14.0-18.0); Immature Granulocytes % 0.5 %; Immature Granulocytes Absolute 0.04 #; Lymphocytes # 0.1 10*3/uL (1.4-4.0); Lymphocytes % 1.5 % (21.2-54.2); Mean Corpuscular Hemoglobin 31 PG (27-34); Mean Corpuscular Volume 85.2 FL (87-102); Mean Platelet Volume 9.7 FL (9.6-12.0); Monocytes # 0.3 10*3/uL (0.11-0.8); Monocytes % 3.9 % (1.7-12.7); Neutrophils # 7.9 10*3/uL (1.4-7.4); Neutrophils % 94.1 % (38.7-73.9); Platelet Count 130 T/CUMM (130-400); Red Blood Count 3.72 MC/CUMM (3.8-5.5); Red Cell Distribution Width 16.1 % (9.3-17.3); White Blood Count 8.4 T/CUMM (4-12)
[2017-11-08 06:00] LABS: Calcium 8.1 MG/DL (8.5-10.1); Osmolality,Calculated 293.1 MOS/KG (273-304); Potassium 3.4 MMOL/L (3.5-5.1)
[2017-11-08] MEDS: POTASSIUM CHLORIDE 20 MEQ TABLET PO PRN ×2 (06:10→08:11)
[2017-11-08 06:39] LABS: Band Neutrophils 5 % (0-10); Hypochromasia Slight; Lymphocytes 1 % (20-55); Platelet Estimate Decreased; Segmented Neutrophils 92 % (50-85); Total Cells Counted 100
[2017-11-08] MEDS: NEBIVOLOL 10 MG TABLET PO SCH (08:10)
[2017-11-08] MEDS: metOLazone 2.5 MG TABLET PO SCH (08:10)
[2017-11-08] MEDS: DILTIAZEM 60 MG TABLET PO SCH (08:11)
[2017-11-08] MEDS: BUDESONIDE/FORMOTEROL 160-4.5 INHALER 6 GM INH SCH ×2 (08:11→21:43)
[2017-11-08] MEDS: INSULIN REGULAR 100 UNIT/ML SUBCUT SCH ×4 (08:11→21:43)
[2017-11-08] MEDS: PANTOPRAZOLE 40 MG TABLET PO SCH (08:11)
[2017-11-08] MEDS: APIXABAN 2.5 MG TABLET PO SCH ×2 (08:11→21:42)
[2017-11-08] MEDS: FUROSEMIDE 40 MG/4 ML VIAL IV SCH ×2 (08:12→16:28)
[2017-11-08] MEDS: NEBIVOLOL 5 MG TABLET PO SCH (21:42)
[2017-11-08] MEDS: ATORVASTATIN 40 MG TABLET PO SCH (21:43)
[2017-11-08] MEDS: cefTRIAXone 1,000 MG in SYRINGE 1 EACH IV SCH (21:44)
[2017-11-09] MEDS: methylPREDNISolone SOD SUC 40 MG/1 ML VIAL IV SCH ×3 (01:31→16:35)
[2017-11-09] MEDS: ALBUTEROL/IPRATROPIUM 3 ML NEB RESP TX SCH ×5 (03:58→20:10)
[2017-11-09 04:59] LABS: Hematocrit 32.2 VOL% (42.0-52.0); Hemoglobin 11.5 GM/DL (14.0-18.0); Immature Granulocytes % 0.5 %; Immature Granulocytes Absolute 0.04 #; Lymphocytes # 0.1 10*3/uL (1.4-4.0); Lymphocytes % 1.5 % (21.2-54.2); Mean Corpuscular HGB Conc 35.7 GM/DL (32-36); Mean Corpuscular Hemoglobin 30 PG (27-34); Monocytes # 0.4 10*3/uL (0.11-0.8); Monocytes % 5.3 % (1.7-12.7); Neutrophils % 92.7 % (38.7-73.9); Platelet Count 129 T/CUMM (130-400); Red Blood Count 3.79 MC/CUMM (3.8-5.5); White Blood Count 7.6 T/CUMM (4-12)
[2017-11-09 05:24] LABS: Lymphocytes 2 % (20-55); Segmented Neutrophils 96 % (50-85); Total Cells Counted 100
[2017-11-09 05:25] LABS: Hypochromasia Slight; Platelet Estimate Normal; Potassium 3.2 MMOL/L (3.5-5.1)
[2017-11-09] MEDS ORDERED: MEPERIDINE 50 MG/1 ML VIAL IM ONE (07:00)
[2017-11-09] MEDS ORDERED: PROMETHAZINE 25 MG/1 ML VIAL IM ONE (07:00)
[2017-11-09] MEDS ORDERED: MIDAZOLAM 2 MG/2 ML VIAL ONE (07:15)
[2017-11-09] MEDS ORDERED: MIDAZOLAM 2 MG/2 ML VIAL IV ONE (07:30)
[2017-11-09] MEDS ORDERED: LIDOCAINE 2% 20 ML VIAL RESP TX ONE (07:30)
[2017-11-09] MEDS ORDERED: LIDOCAINE 1% 20 ML VIAL MISC INJ ONE (07:30)
[2017-11-09] MEDS ORDERED: LIDOCAINE 2% VISCOUS 100 ML BOTTLE SWISH/SPIT ONE (07:30)
[2017-11-09] MEDS: INSULIN REGULAR 100 UNIT/ML SUBCUT SCH ×4 (07:34→21:19)
[2017-11-09] MEDS: FUROSEMIDE 40 MG/4 ML VIAL IV SCH (09:23)
[2017-11-09] MEDS: NEBIVOLOL 5 MG TABLET PO SCH ×2 (12:26→21:21)
[2017-11-09] MEDS: DILTIAZEM 60 MG TABLET PO SCH (12:26)
[2017-11-09] MEDS: APIXABAN 2.5 MG TABLET PO SCH ×2 (12:26→21:21)
[2017-11-09] MEDS: POTASSIUM CHLORIDE 20 MEQ TABLET PO SCH ×2 (12:27→22:07)
[2017-11-09] MEDS: POTASSIUM CHLORIDE 20 MEQ TABLET PO PRN ×4 (12:27→18:50)
[2017-11-09] MEDS: PANTOPRAZOLE 40 MG TABLET PO SCH (12:27)
[2017-11-09] MEDS: metOLazone 2.5 MG TABLET PO SCH (12:27)
[2017-11-09] MEDS: BUDESONIDE/FORMOTEROL 160-4.5 INHALER 6 GM INH SCH ×2 (12:28→21:23)
[2017-11-09] MEDS ORDERED: NITROGLYCERIN SL 0.4 MG TABLET SL PRN (13:52)
[2017-11-09] MEDS: ASPIRIN EC 81 MG TABLET PO SCH (14:38)
[2017-11-09] MEDS: FUROSEMIDE 40 MG TABLET PO SCH (16:35)
[2017-11-09] MEDS: ATORVASTATIN 40 MG TABLET PO SCH (21:21)
[2017-11-09] MEDS: cefTRIAXone 1,000 MG in SYRINGE 1 EACH IV SCH (21:21)
[2017-11-10] MEDS: ALBUTEROL/IPRATROPIUM 3 ML NEB RESP TX SCH ×6 (00:57→19:43)
[2017-11-10 00:58] LABS: Basophils % 0.1 % (0.0-0.8); Hematocrit 34.3 VOL% (42.0-52.0); Hemoglobin 11.9 GM/DL (14.0-18.0); Immature Granulocytes % 0.7 %; Immature Granulocytes Absolute 0.08 #; Lymphocytes # 0.1 10*3/uL (1.4-4.0); Lymphocytes % 0.8 % (21.2-54.2); Mean Corpuscular HGB Conc 34.7 GM/DL (32-36); Mean Corpuscular Hemoglobin 30 PG (27-34); Mean Corpuscular Volume 86.8 FL (87-102); Mean Platelet Volume 10.2 FL (9.6-12.0); Monocytes # 0.5 10*3/uL (0.11-0.8); Monocytes % 4.3 % (1.7-12.7); Neutrophils # 11.3 10*3/uL (1.4-7.4); Neutrophils % 94.1 % (38.7-73.9); Platelet Count 137 T/CUMM (130-400); Red Blood Count 3.95 MC/CUMM (3.8-5.5); Red Cell Distribution Width 15.9 % (9.3-17.3)
[2017-11-10] MEDS: methylPREDNISolone SOD SUC 40 MG/1 ML VIAL IV SCH (01:30)
[2017-11-10 01:32] LABS: Calcium 8.2 MG/DL (8.5-10.1); Osmolality,Calculated 304.8 MOS/KG (273-304); Potassium 3.4 MMOL/L (3.5-5.1)
[2017-11-10 02:27] LABS: Burr Cells Slight; Lymphocytes 1 % (20-55); Platelet Estimate Adequate; Segmented Neutrophils 96 % (50-85); Target Cells Few; Total Cells Counted 100
[2017-11-10] MEDS: POTASSIUM CHLORIDE 20 MEQ TABLET PO PRN ×2 (07:21→11:20)
[2017-11-10] MEDS: INSULIN REGULAR 100 UNIT/ML SUBCUT SCH ×4 (09:21→21:38)
[2017-11-10] MEDS: PANTOPRAZOLE 40 MG TABLET PO SCH (09:21)
[2017-11-10] MEDS: ASPIRIN EC 81 MG TABLET PO SCH (09:21)
[2017-11-10] MEDS: FUROSEMIDE 40 MG TABLET PO SCH (09:22)
[2017-11-10] MEDS: DILTIAZEM 60 MG TABLET PO SCH (09:22)
[2017-11-10] MEDS: APIXABAN 2.5 MG TABLET PO SCH ×2 (09:22→21:39)
[2017-11-10] MEDS: POTASSIUM CHLORIDE 20 MEQ TABLET PO SCH ×2 (09:22→21:39)
[2017-11-10] MEDS: NEBIVOLOL 5 MG TABLET PO SCH ×2 (09:23→21:39)
[2017-11-10] MEDS: BUDESONIDE/FORMOTEROL 160-4.5 INHALER 6 GM INH SCH ×2 (09:23→21:40)
[2017-11-10] MEDS: predniSONE 20 MG TABLET PO SCH (10:03)
[2017-11-10] MEDS: ATORVASTATIN 40 MG TABLET PO SCH (21:39)
[2017-11-10] MEDS: cefTRIAXone 1,000 MG in SYRINGE 1 EACH IV SCH (21:40)
[2017-11-11] MEDS: ALBUTEROL/IPRATROPIUM 3 ML NEB RESP TX SCH ×6 (00:30→19:20)
[2017-11-11 05:44] LABS: Basophils % 0.1 % (0.0-0.8); Hematocrit 32.7 VOL% (42.0-52.0); Hemoglobin 11.5 GM/DL (14.0-18.0); Immature Granulocytes % 0.5 %; Immature Granulocytes Absolute 0.05 #; Lymphocytes # 0.2 10*3/uL (1.4-4.0); Lymphocytes % 2.2 % (21.2-54.2); Mean Corpuscular HGB Conc 35.2 GM/DL (32-36); Mean Corpuscular Hemoglobin 30 PG (27-34); Mean Corpuscular Volume 85.2 FL (87-102); Mean Platelet Volume 9.9 FL (9.6-12.0); Monocytes # 0.8 10*3/uL (0.11-0.8); Monocytes % 7.7 % (1.7-12.7); Neutrophils # 8.9 10*3/uL (1.4-7.4); Neutrophils % 89.5 % (38.7-73.9); Platelet Count 136 T/CUMM (130-400); Red Blood Count 3.84 MC/CUMM (3.8-5.5); Red Cell Distribution Width 16.1 % (9.3-17.3); White Blood Count 9.9 T/CUMM (4-12)
[2017-11-11 06:04] LABS: Hypochromasia 1+; Lymphocytes 3 % (20-55); Platelet Estimate Normal; Segmented Neutrophils 93 % (50-85); Total Cells Counted 100
[2017-11-11 06:05] LABS: Giant Platelets Few; Ovalocytes Slight
[2017-11-11 06:12] LABS: Calcium 8.1 MG/DL (8.5-10.1); Osmolality,Calculated 307.1 MOS/KG (273-304); Potassium 4.5 MMOL/L (3.5-5.1)
[2017-11-11] MEDS: DILTIAZEM 60 MG TABLET PO SCH (09:00)
[2017-11-11] MEDS ORDERED: FUROSEMIDE 40 MG TABLET PO SCH (09:00)
[2017-11-11] MEDS: NEBIVOLOL 5 MG TABLET PO SCH ×2 (09:02→21:42)
[2017-11-11] MEDS: APIXABAN 2.5 MG TABLET PO SCH ×2 (09:02→21:41)
[2017-11-11] MEDS: predniSONE 20 MG TABLET PO SCH (09:03)
[2017-11-11] MEDS: PANTOPRAZOLE 40 MG TABLET PO SCH (09:03)
[2017-11-11] MEDS: ASPIRIN EC 81 MG TABLET PO SCH (09:03)
[2017-11-11] MEDS: INSULIN REGULAR 100 UNIT/ML SUBCUT SCH ×4 (09:09→21:40)
[2017-11-11] MEDS: BUDESONIDE/FORMOTEROL 160-4.5 INHALER 6 GM INH SCH ×2 (09:21→21:42)
[2017-11-11] MEDS: POTASSIUM CHLORIDE 20 MEQ TABLET PO SCH ×2 (09:28→21:41)
[2017-11-11] MEDS ORDERED: LEVOFLOXACIN 500 MG TABLET PO SCH (12:00)
[2017-11-11] MEDS: CIPROFLOXACIN 500 MG TABLET PO SCH ×2 (14:29→21:41)
[2017-11-11] MEDS: ATORVASTATIN 40 MG TABLET PO SCH (21:41)
[2017-11-12] MEDS: ALBUTEROL/IPRATROPIUM 3 ML NEB RESP TX SCH ×4 (01:31→11:35)
[2017-11-12 05:26] LABS: Hematocrit 32.7 VOL% (42.0-52.0); Hemoglobin 11.1 GM/DL (14.0-18.0); Immature Granulocytes % 0.8 %; Immature Granulocytes Absolute 0.07 #; Lymphocytes # 0.5 10*3/uL (1.4-4.0); Mean Corpuscular HGB Conc 33.9 GM/DL (32-36); Mean Corpuscular Hemoglobin 30 PG (27-34); Mean Platelet Volume 9.8 FL (9.6-12.0); Monocytes # 0.9 10*3/uL (0.11-0.8); Monocytes % 10.4 % (1.7-12.7); Neutrophils % 82.8 % (38.7-73.9); Platelet Count 140 T/CUMM (130-400); Red Blood Count 3.76 MC/CUMM (3.8-5.5); Red Cell Distribution Width 16.1 % (9.3-17.3); White Blood Count 8.5 T/CUMM (4-12)
[2017-11-12 05:52] LABS: Calcium 8.3 MG/DL (8.5-10.1); Osmolality,Calculated 303.2 MOS/KG (273-304); Potassium 5.1 MMOL/L (3.5-5.1)
[2017-11-12] MEDS: NEBIVOLOL 5 MG TABLET PO SCH (08:28)
[2017-11-12] MEDS: INSULIN REGULAR 100 UNIT/ML SUBCUT SCH ×2 (08:28→12:33)
[2017-11-12] MEDS: DILTIAZEM 60 MG TABLET PO SCH (08:28)
[2017-11-12] MEDS: ASPIRIN EC 81 MG TABLET PO SCH (08:29)
[2017-11-12] MEDS: POTASSIUM CHLORIDE 20 MEQ TABLET PO SCH (08:29)
[2017-11-12] MEDS: CIPROFLOXACIN 500 MG TABLET PO SCH (08:29)
[2017-11-12] MEDS: PANTOPRAZOLE 40 MG TABLET PO SCH (08:29)
[2017-11-12] MEDS: APIXABAN 2.5 MG TABLET PO SCH (08:29)
[2017-11-12] MEDS: predniSONE 20 MG TABLET PO SCH (08:29)
[2017-11-12] MEDS: BUDESONIDE/FORMOTEROL 160-4.5 INHALER 6 GM INH SCH (08:29)
[2017-11-12 12:01] VITALS: BP 108/59
== END 2017-11-12 13:03 | disposition swing bed (61) | DRG 291 ==
LOC: EDUNIT# → EDBD → N.ED 15:28 → N.EDINP 17:07 → SUATTDRO 17:07 → N.TELEN 19:47
PROVIDERS: ADMIT Internal Medicine; ATTEND Internal Medicine

== ENCOUNTER 2017-11-28 15:20 | Inpatient (IN) ==
[2017-11-28] MEDS ORDERED: FUROSEMIDE 100 MG/10 ML VIAL IV STA (15:55)
[2017-11-28] MEDS ORDERED: FUROSEMIDE 100 MG/10 ML VIAL ONE (16:19)
[2017-11-28 17:01] LABS: Immature Granulocytes % 0.7 %; Immature Granulocytes Absolute 0.04 #; Lymphocytes # 0.4 10*3/uL (1.4-4.0); Lymphocytes % 6.1 % (21.2-54.2); Mean Corpuscular HGB Conc 34.6 GM/DL (32-36); Mean Corpuscular Hemoglobin 31 PG (27-34); Mean Corpuscular Volume 89.3 FL (87-102); Mean Platelet Volume 10.2 FL (9.6-12.0); Monocytes # 0.5 10*3/uL (0.11-0.8); Monocytes % 9.1 % (1.7-12.7); Neutrophils # 4.8 10*3/uL (1.4-7.4); Neutrophils % 84.1 % (38.7-73.9); Platelet Count 120 T/CUMM (130-400); Red Blood Count 2.91 MC/CUMM (3.8-5.5); Red Cell Distribution Width 18.1 % (9.3-17.3); White Blood Count 5.7 T/CUMM (4-12)
[2017-11-28 17:18] LABS: PT Patient Result 10.7 SECS; Partial Thromboplastin Time 28.5 SECS (0-40)
[2017-11-28 17:19] LABS: Albumin 2.6 G/DL (3.4-5.0); Bilirubin,Total 0.5 MG/DL (0.2-1.0); Osmolality,Calculated 301.4 MOS/KG (273-304); Total Protein 5.6 G/DL (6.4-8.3); Troponin I Only 0.093 NG/ML (0.00-0.045)
[2017-11-28] MEDS ORDERED: NITROGLYCERIN SL 0.4 MG TABLET SL PRN (17:49)
[2017-11-28] MEDS ORDERED: GLUCAGON 1 MG VIAL IM PRN (18:02)
[2017-11-28] MEDS ORDERED: DEXTROSE 50% 25 GM/50 ML VIAL IV PRN (18:02)
[2017-11-28] MEDS ORDERED: ONDANSETRON 4 MG/2 ML VIAL IV PRN (18:04)
[2017-11-28] MEDS ORDERED: guaiFENesin/DM ER 600-30 MG TABLET PO PRN (18:04)
[2017-11-28] MEDS ORDERED: ZALEPLON 5 MG CAPSULE PO PRN (18:04)
[2017-11-28] MEDS ORDERED: MORPHINE 2 MG/1 ML SYRINGE IV PRN (18:04)
[2017-11-28] MEDS ORDERED: ALBUMIN 5% 12.5 GM in PREMIX 1 EACH IV SCH (19:30)
[2017-11-28 19:39] LABS: Apearance,Urine CLOUDY (Clear); Bilirubin,Urine Negative (Negative); Blood, Urine Large mg/dL (Negative); Glucose,Urine (UA) Negative (Negative); Hyaline Casts,Urine 6 /LPF (0-3); Ketones,Urine Negative (Negative); Mucus,Urine Occasional /LPF (Occasional); Nitrite,Urine Negative (Negative); Protein,Urine 30 MG/DL; RBC,Urine 967 /HPF (0-4); Urine Color Yellow (Yellow); Urine Specific Gravity 1.009 (1.001-1.035); Urine Urobilinogen < 2.0 EU/DL (0.2-1.0); WBC,Urine 61 /HPF (0-6)
[2017-11-28] MEDS: ALBUTEROL/IPRATROPIUM 3 ML NEB RESP TX SCH (19:43)
[2017-11-28] MEDS: APIXABAN 5 MG TABLET PO SCH (21:45)
[2017-11-28] MEDS: ATORVASTATIN 40 MG TABLET PO SCH (21:45)
[2017-11-28] MEDS: DOCUSATE SODIUM 100 MG CAPSULE PO SCH (21:45)
[2017-11-28] MEDS: BUDESONIDE/FORMOTEROL 160-4.5 INHALER 6 GM INH SCH (21:45)
[2017-11-28] MEDS: ALBUMIN 25% 12.5 GM in PREMIX 1 EACH IV SCH (21:51)
[2017-11-29] MEDS: ALBUTEROL/IPRATROPIUM 3 ML NEB RESP TX SCH ×7 (01:30→22:34)
[2017-11-29] MEDS: ALBUMIN 25% 12.5 GM in PREMIX 1 EACH IV SCH ×3 (05:39→21:42)
[2017-11-29 06:29] LABS: Eosinophils % 0.4 % (0.00-10.9); Hematocrit 24.6 VOL% (42.0-52.0); Hemoglobin 8.4 GM/DL (14.0-18.0); Immature Granulocytes % 0.7 %; Immature Granulocytes Absolute 0.04 #; Lymphocytes # 0.8 10*3/uL (1.4-4.0); Lymphocytes % 14.3 % (21.2-54.2); Mean Corpuscular HGB Conc 34.1 GM/DL (32-36); Mean Corpuscular Hemoglobin 30 PG (27-34); Mean Corpuscular Volume 89.1 FL (87-102); Mean Platelet Volume 9.5 FL (9.6-12.0); Monocytes # 0.8 10*3/uL (0.11-0.8); Monocytes % 13.7 % (1.7-12.7); Neutrophils % 70.9 % (38.7-73.9); Platelet Count 123 T/CUMM (130-400); Red Blood Count 2.76 MC/CUMM (3.8-5.5); Red Cell Distribution Width 18.1 % (9.3-17.3); White Blood Count 5.6 T/CUMM (4-12)
[2017-11-29 07:03] LABS: Calcium 8.2 MG/DL (8.5-10.1); Potassium 4.3 MMOL/L (3.5-5.1); Total Protein 5.5 G/DL (6.4-8.3)
[2017-11-29] MEDS: predniSONE 20 MG TABLET PO SCH (10:02)
[2017-11-29] MEDS: PANTOPRAZOLE 40 MG TABLET PO SCH (10:02)
[2017-11-29] MEDS: APIXABAN 5 MG TABLET PO SCH (10:02)
[2017-11-29] MEDS: DOCUSATE SODIUM 100 MG CAPSULE PO SCH ×2 (10:02→21:16)
[2017-11-29] MEDS: FUROSEMIDE 40 MG/4 ML VIAL IV SCH ×2 (10:02→16:07)
[2017-11-29] MEDS: ASPIRIN EC 81 MG TABLET PO SCH (10:02)
[2017-11-29] MEDS: BISACODYL 5 MG TABLET PO SCH (10:02)
[2017-11-29] MEDS: BUDESONIDE/FORMOTEROL 160-4.5 INHALER 6 GM INH SCH ×2 (10:03→21:20)
[2017-11-29] MEDS: FINASTERIDE 5 MG TABLET PO SCH (10:51)
[2017-11-29] MEDS: TAMSULOSIN 0.4 MG CAPSULE PO SCH (10:52)
[2017-11-29] MEDS: cefTRIAXone 1,000 MG in SYRINGE 1 EACH IV SCH (14:43)
[2017-11-29] MEDS: INSULIN REGULAR 100 UNIT/ML SUBCUT SCH ×2 (16:06→21:16)
[2017-11-29] MEDS: APIXABAN 2.5 MG TABLET PO SCH (21:16)
[2017-11-29] MEDS: ATORVASTATIN 40 MG TABLET PO SCH (21:16)
[2017-11-30] MEDS: cefTRIAXone 1,000 MG in SYRINGE 1 EACH IV SCH ×2 (02:32→13:45)
[2017-11-30] MEDS: ALBUTEROL/IPRATROPIUM 3 ML NEB RESP TX SCH ×6 (02:44→23:13)
[2017-11-30] MEDS: ALBUMIN 25% 12.5 GM in PREMIX 1 EACH IV SCH ×3 (05:42→22:16)
[2017-11-30] MEDS: FINASTERIDE 5 MG TABLET PO SCH (09:41)
[2017-11-30] MEDS: FUROSEMIDE 40 MG/4 ML VIAL IV SCH ×2 (09:41→16:46)
[2017-11-30] MEDS: DOCUSATE SODIUM 100 MG CAPSULE PO SCH ×2 (09:41→20:31)
[2017-11-30] MEDS: APIXABAN 2.5 MG TABLET PO SCH ×2 (09:41→20:31)
[2017-11-30] MEDS: ASPIRIN EC 81 MG TABLET PO SCH (09:42)
[2017-11-30] MEDS: predniSONE 20 MG TABLET PO SCH (09:42)
[2017-11-30] MEDS: BISACODYL 5 MG TABLET PO SCH (09:42)
[2017-11-30] MEDS: TAMSULOSIN 0.4 MG CAPSULE PO SCH (09:42)
[2017-11-30] MEDS: INSULIN REGULAR 100 UNIT/ML SUBCUT SCH ×4 (09:43→20:32)
[2017-11-30] MEDS: BUDESONIDE/FORMOTEROL 160-4.5 INHALER 6 GM INH SCH ×2 (09:44→20:33)
[2017-11-30] MEDS: PANTOPRAZOLE 40 MG TABLET PO SCH (09:44)
[2017-11-30] MEDS: hydrALAZINE 25 MG TABLET PO SCH ×2 (13:32→20:31)
[2017-11-30] MEDS: ATORVASTATIN 40 MG TABLET PO SCH (20:31)
[2017-11-30] MEDS: DILTIAZEM CD 120 MG CAPSULE PO SCH (20:32)
[2017-12-01] MEDS: cefTRIAXone 1,000 MG in SYRINGE 1 EACH IV SCH ×2 (01:41→13:03)
[2017-12-01 05:01] LABS: Eosinophils % 0.7 % (0.00-10.9); Hematocrit 22.5 VOL% (42.0-52.0); Hemoglobin 7.7 GM/DL (14.0-18.0); Immature Granulocytes % 0.9 %; Immature Granulocytes Absolute 0.04 #; Lymphocytes # 0.7 10*3/uL (1.4-4.0); Mean Corpuscular HGB Conc 34.2 GM/DL (32-36); Mean Corpuscular Hemoglobin 30 PG (27-34); Mean Corpuscular Volume 88.2 FL (87-102); Mean Platelet Volume 9.5 FL (9.6-12.0); Monocytes # 0.9 10*3/uL (0.11-0.8); Monocytes % 19.6 % (1.7-12.7); Neutrophils # 2.8 10*3/uL (1.4-7.4); Neutrophils % 62.8 % (38.7-73.9); Platelet Count 153 T/CUMM (130-400); Red Blood Count 2.55 MC/CUMM (3.8-5.5); Red Cell Distribution Width 18.2 % (9.3-17.3); White Blood Count 4.4 T/CUMM (4-12)
[2017-12-01] MEDS: ALBUTEROL/IPRATROPIUM 3 ML NEB RESP TX SCH ×5 (05:20→19:36)
[2017-12-01 05:27] LABS: Calcium 8.1 MG/DL (8.5-10.1); Osmolality,Calculated 304.8 MOS/KG (273-304); Potassium 4.7 MMOL/L (3.5-5.1)
[2017-12-01 05:29] LABS: Band Neutrophils 1 % (0-10); Lymphocytes 17 % (20-55); Nucleated Red Blood Cells 1 (0-5); Segmented Neutrophils 71 % (50-85); Total Cells Counted 100
[2017-12-01 05:30] LABS: Hypochromasia 1+; Microcytosis 1+; Target Cells Few
[2017-12-01 05:31] LABS: Ovalocytes Slight; Platelet Estimate Adequate
[2017-12-01 05:45] LABS: Risk Ratio 1.76; VLDL CHOLESTEROL 5.6 MG/DL
[2017-12-01] MEDS: ALBUMIN 25% 12.5 GM in PREMIX 1 EACH IV SCH ×3 (05:48→21:16)
[2017-12-01] MEDS: INSULIN REGULAR 100 UNIT/ML SUBCUT SCH ×4 (08:34→21:17)
[2017-12-01] MEDS: FUROSEMIDE 40 MG/4 ML VIAL IV SCH ×2 (08:34→17:01)
[2017-12-01] MEDS: DILTIAZEM CD 120 MG CAPSULE PO SCH ×2 (08:35→21:17)
[2017-12-01] MEDS: DOCUSATE SODIUM 100 MG CAPSULE PO SCH ×2 (08:35→21:18)
[2017-12-01] MEDS: PANTOPRAZOLE 40 MG TABLET PO SCH (08:35)
[2017-12-01] MEDS: predniSONE 20 MG TABLET PO SCH (08:36)
[2017-12-01] MEDS: APIXABAN 2.5 MG TABLET PO SCH ×2 (08:36→21:18)
[2017-12-01] MEDS: FINASTERIDE 5 MG TABLET PO SCH (08:36)
[2017-12-01] MEDS: BISACODYL 5 MG TABLET PO SCH (08:36)
[2017-12-01] MEDS: hydrALAZINE 25 MG TABLET PO SCH (08:37)
[2017-12-01] MEDS: ASPIRIN EC 81 MG TABLET PO SCH (08:37)
[2017-12-01] MEDS: TAMSULOSIN 0.4 MG CAPSULE PO SCH (08:37)
[2017-12-01] MEDS: BUDESONIDE/FORMOTEROL 160-4.5 INHALER 6 GM INH SCH ×2 (08:38→21:18)
[2017-12-01 11:05] LABS: Hematocrit 23.6 VOL% (42.0-52.0)
[2017-12-01] MEDS: NEOMYCIN/POLYMYXIN/BACITRACIN OINT 0.9 GM PACK TOP SCH ×2 (13:03→21:29)
[2017-12-01] MEDS: ATORVASTATIN 40 MG TABLET PO SCH (21:18)
[2017-12-01 23:53] LABS: Hematocrit 21.1 VOL% (42.0-52.0); Hemoglobin 7.1 GM/DL (14.0-18.0)
[2017-12-02] MEDS: ALBUTEROL/IPRATROPIUM 3 ML NEB RESP TX SCH ×7 (00:24→23:02)
[2017-12-02] MEDS: cefTRIAXone 1,000 MG in SYRINGE 1 EACH IV SCH ×2 (02:30→15:52)
[2017-12-02 04:54] LABS: Eosinophils % 0.4 % (0.00-10.9); Hematocrit 22.5 VOL% (42.0-52.0); Hemoglobin 7.4 GM/DL (14.0-18.0); Immature Granulocytes % 1.7 %; Immature Granulocytes Absolute 0.08 #; Lymphocytes # 0.8 10*3/uL (1.4-4.0); Lymphocytes % 16.6 % (21.2-54.2); Mean Corpuscular HGB Conc 32.9 GM/DL (32-36); Mean Corpuscular Hemoglobin 30 PG (27-34); Mean Platelet Volume 9.3 FL (9.6-12.0); Monocytes # 0.9 10*3/uL (0.11-0.8); Monocytes % 19.6 % (1.7-12.7); Neutrophils # 2.9 10*3/uL (1.4-7.4); Neutrophils % 61.7 % (38.7-73.9); Platelet Count 160 T/CUMM (130-400); Red Cell Distribution Width 18.1 % (9.3-17.3); White Blood Count 4.8 T/CUMM (4-12)
[2017-12-02 05:16] LABS: Band Neutrophils 1 % (0-10); Eosinophils 1 % (0-10); Lymphocytes 21 % (20-55); Segmented Neutrophils 62 % (50-85); Total Cells Counted 100
[2017-12-02 05:17] LABS: Hypochromasia 1+; Microcytosis 1+; Ovalocytes Slight; Target Cells Few
[2017-12-02 05:24] LABS: Calcium 8.2 MG/DL (8.5-10.1); Potassium 4.5 MMOL/L (3.5-5.1)
[2017-12-02] MEDS: ALBUMIN 25% 12.5 GM in PREMIX 1 EACH IV SCH ×2 (05:45→15:34)
[2017-12-02] MEDS: FINASTERIDE 5 MG TABLET PO SCH (09:20)
[2017-12-02] MEDS: ASPIRIN CHEW 81 MG TABLET PO SCH (09:20)
[2017-12-02] MEDS: BISACODYL 5 MG TABLET PO SCH (09:20)
[2017-12-02] MEDS: PANTOPRAZOLE 40 MG TABLET PO SCH (09:21)
[2017-12-02] MEDS: DILTIAZEM CD 120 MG CAPSULE PO SCH ×2 (09:21→20:50)
[2017-12-02] MEDS: TAMSULOSIN 0.4 MG CAPSULE PO SCH (09:21)
[2017-12-02] MEDS: predniSONE 20 MG TABLET PO SCH (09:21)
[2017-12-02] MEDS: APIXABAN 2.5 MG TABLET PO SCH (09:21)
[2017-12-02] MEDS: INSULIN REGULAR 100 UNIT/ML SUBCUT SCH ×4 (09:21→22:09)
[2017-12-02] MEDS: DOCUSATE SODIUM 100 MG CAPSULE PO SCH ×2 (09:21→20:51)
[2017-12-02] MEDS: BUDESONIDE/FORMOTEROL 160-4.5 INHALER 6 GM INH SCH ×2 (09:22→20:57)
[2017-12-02] MEDS: FUROSEMIDE 40 MG/4 ML VIAL IV SCH ×2 (09:22→20:51)
[2017-12-02] MEDS: NEOMYCIN/POLYMYXIN/BACITRACIN OINT 0.9 GM PACK TOP SCH ×2 (09:22→20:58)
[2017-12-02 11:12] LABS: Hematocrit 22.8 VOL% (42.0-52.0); Hemoglobin 7.8 GM/DL (14.0-18.0)
[2017-12-02] MEDS ORDERED: SODIUM CHLORIDE 0.9% 1,000 ML IV PRN (13:09)
[2017-12-02] MEDS ORDERED: FUROSEMIDE 40 MG/4 ML VIAL IV ONE (13:50)
[2017-12-02] MEDS: ATORVASTATIN 40 MG TABLET PO SCH (20:51)
[2017-12-03 02:32] LABS: Hematocrit 28.7 VOL% (42.0-52.0)
[2017-12-03 02:34] LABS: Hemoglobin 9.9 GM/DL (14.0-18.0)
[2017-12-03] MEDS: cefTRIAXone 1,000 MG in SYRINGE 1 EACH IV SCH ×2 (03:26→16:36)
[2017-12-03] MEDS: ALBUMIN 25% 12.5 GM in PREMIX 1 EACH IV SCH ×4 (03:27→16:36)
[2017-12-03] MEDS: ALBUTEROL/IPRATROPIUM 3 ML NEB RESP TX SCH ×6 (03:45→22:37)
[2017-12-03 06:25] LABS: Basophils % 0.2 % (0.0-0.8); Eosinophils % 0.2 % (0.00-10.9); Hematocrit 27.6 VOL% (42.0-52.0); Hemoglobin 9.1 GM/DL (14.0-18.0); Immature Granulocytes % 2.9 %; Immature Granulocytes Absolute 0.15 #; Lymphocytes # 0.8 10*3/uL (1.4-4.0); Lymphocytes % 14.7 % (21.2-54.2); Mean Corpuscular Hemoglobin 31 PG (27-34); Mean Corpuscular Volume 92.9 FL (87-102); Mean Platelet Volume 9.6 FL (9.6-12.0); Monocytes # 0.9 10*3/uL (0.11-0.8); Monocytes % 17.6 % (1.7-12.7); Neutrophils # 3.4 10*3/uL (1.4-7.4); Neutrophils % 64.4 % (38.7-73.9); Platelet Count 156 T/CUMM (130-400); Red Blood Count 2.97 MC/CUMM (3.8-5.5); Red Cell Distribution Width 18.2 % (9.3-17.3); White Blood Count 5.2 T/CUMM (4-12)
[2017-12-03 06:27] LABS: Calcium 8.3 MG/DL (8.5-10.1); Osmolality,Calculated 294.2 MOS/KG (273-304); Potassium 4.5 MMOL/L (3.5-5.1)
[2017-12-03 08:24] LABS: Band Neutrophils 1 % (0-10); Lymphocytes 17 % (20-55); Myelocytes 2 %; Segmented Neutrophils 66 % (50-85); Total Cells Counted 100
[2017-12-03 08:25] LABS: Acanthocytes Few; Hypochromasia 1+; Microcytosis 1+; Ovalocytes Slight; Platelet Estimate Adequate; Target Cells Slight
[2017-12-03 08:26] LABS: Burr Cells Slight
[2017-12-03] MEDS: NEOMYCIN/POLYMYXIN/BACITRACIN OINT 0.9 GM PACK TOP SCH ×2 (08:56→21:44)
[2017-12-03] MEDS: DILTIAZEM CD 120 MG CAPSULE PO SCH (08:56)
[2017-12-03] MEDS: predniSONE 20 MG TABLET PO SCH (08:57)
[2017-12-03] MEDS: BISACODYL 5 MG TABLET PO SCH (08:57)
[2017-12-03] MEDS: FINASTERIDE 5 MG TABLET PO SCH (08:57)
[2017-12-03] MEDS: TAMSULOSIN 0.4 MG CAPSULE PO SCH ×2 (08:57→21:40)
[2017-12-03] MEDS: FUROSEMIDE 40 MG/4 ML VIAL IV SCH ×2 (08:57→16:38)
[2017-12-03] MEDS: PANTOPRAZOLE 40 MG TABLET PO SCH (08:57)
[2017-12-03] MEDS: BUDESONIDE/FORMOTEROL 160-4.5 INHALER 6 GM INH SCH ×2 (08:58→21:43)
[2017-12-03] MEDS: INSULIN REGULAR 100 UNIT/ML SUBCUT SCH ×4 (08:58→21:42)
[2017-12-03] MEDS: DOCUSATE SODIUM 100 MG CAPSULE PO SCH ×2 (08:58→21:41)
[2017-12-03] MEDS ORDERED: METOPROLOL SUCCINATE XL 25 MG TABLET PO SCH (09:00)
[2017-12-03] MEDS: CARVEDILOL 6.25 MG TABLET PO SCH (16:37)
[2017-12-03] MEDS: ATORVASTATIN 40 MG TABLET PO SCH (21:41)
[2017-12-04] MEDS: ALBUMIN 25% 12.5 GM in PREMIX 1 EACH IV SCH ×4 (00:59→22:21)
[2017-12-04] MEDS: cefTRIAXone 1,000 MG in SYRINGE 1 EACH IV SCH ×2 (02:28→14:07)
[2017-12-04] MEDS: ALBUTEROL/IPRATROPIUM 3 ML NEB RESP TX SCH ×5 (02:36→19:17)
[2017-12-04 05:54] LABS: Eosinophils % 0.4 % (0.00-10.9); Hematocrit 27.3 VOL% (42.0-52.0); Hemoglobin 9.3 GM/DL (14.0-18.0); Immature Granulocytes % 2.1 %; Immature Granulocytes Absolute 0.12 #; Lymphocytes # 0.7 10*3/uL (1.4-4.0); Lymphocytes % 12.7 % (21.2-54.2); Mean Corpuscular HGB Conc 34.1 GM/DL (32-36); Mean Corpuscular Hemoglobin 31 PG (27-34); Mean Corpuscular Volume 90.7 FL (87-102); Mean Platelet Volume 9.3 FL (9.6-12.0); Monocytes # 0.9 10*3/uL (0.11-0.8); Monocytes % 16.4 % (1.7-12.7); Neutrophils # 3.8 10*3/uL (1.4-7.4); Neutrophils % 68.4 % (38.7-73.9); Platelet Count 163 T/CUMM (130-400); Red Blood Count 3.01 MC/CUMM (3.8-5.5); White Blood Count 5.6 T/CUMM (4-12)
[2017-12-04 06:25] LABS: Eosinophils 1 % (0-10); Hypochromasia 1+; Lymphocytes 12 % (20-55); Microcytosis 1+; Nucleated Red Blood Cells 1 (0-5); Segmented Neutrophils 77 % (50-85); Total Cells Counted 100
[2017-12-04 06:26] LABS: Ovalocytes Slight; Platelet Estimate Adequate; Target Cells Slight
[2017-12-04 06:29] LABS: Calcium 8.5 MG/DL (8.5-10.1); Potassium 4.3 MMOL/L (3.5-5.1)
[2017-12-04] MEDS: INSULIN REGULAR 100 UNIT/ML SUBCUT SCH ×4 (08:53→21:04)
[2017-12-04] MEDS: ASPIRIN CHEW 81 MG TABLET PO SCH (08:54)
[2017-12-04] MEDS: TAMSULOSIN 0.4 MG CAPSULE PO SCH ×2 (08:54→21:03)
[2017-12-04] MEDS: predniSONE 20 MG TABLET PO SCH (08:54)
[2017-12-04] MEDS: FINASTERIDE 5 MG TABLET PO SCH (08:54)
[2017-12-04] MEDS: BISACODYL 5 MG TABLET PO SCH (08:54)
[2017-12-04] MEDS: NEOMYCIN/POLYMYXIN/BACITRACIN OINT 0.9 GM PACK TOP SCH ×2 (08:54→21:04)
[2017-12-04] MEDS: FUROSEMIDE 40 MG/4 ML VIAL IV SCH ×2 (08:54→16:32)
[2017-12-04] MEDS: PANTOPRAZOLE 40 MG TABLET PO SCH (08:55)
[2017-12-04] MEDS: DOCUSATE SODIUM 100 MG CAPSULE PO SCH ×2 (08:55→21:04)
[2017-12-04] MEDS: CARVEDILOL 6.25 MG TABLET PO SCH ×2 (08:55→16:32)
[2017-12-04] MEDS: BUDESONIDE/FORMOTEROL 160-4.5 INHALER 6 GM INH SCH ×2 (08:58→21:05)
[2017-12-04] MEDS: ATORVASTATIN 40 MG TABLET PO SCH (21:03)
[2017-12-04] MEDS: ISOSORBIDE DINITRATE 20 MG TABLET PO SCH (21:04)
[2017-12-05] MEDS: ALBUTEROL/IPRATROPIUM 3 ML NEB RESP TX SCH ×6 (00:38→21:48)
[2017-12-05] MEDS: cefTRIAXone 1,000 MG in SYRINGE 1 EACH IV SCH ×2 (02:22→14:11)
[2017-12-05] MEDS: ALBUMIN 25% 12.5 GM in PREMIX 1 EACH IV SCH ×3 (06:03→22:33)
[2017-12-05] MEDS: FUROSEMIDE 40 MG/4 ML VIAL IV SCH ×2 (08:52→16:21)
[2017-12-05] MEDS: INSULIN REGULAR 100 UNIT/ML SUBCUT SCH ×4 (08:52→20:31)
[2017-12-05] MEDS: BISACODYL 5 MG TABLET PO SCH (08:53)
[2017-12-05] MEDS: TAMSULOSIN 0.4 MG CAPSULE PO SCH ×2 (08:54→20:31)
[2017-12-05] MEDS: ISOSORBIDE DINITRATE 20 MG TABLET PO SCH ×2 (08:54→20:31)
[2017-12-05] MEDS: CARVEDILOL 6.25 MG TABLET PO SCH ×2 (08:54→16:22)
[2017-12-05] MEDS: FINASTERIDE 5 MG TABLET PO SCH (08:54)
[2017-12-05] MEDS: predniSONE 20 MG TABLET PO SCH (08:54)
[2017-12-05] MEDS: PANTOPRAZOLE 40 MG TABLET PO SCH (08:54)
[2017-12-05] MEDS: DOCUSATE SODIUM 100 MG CAPSULE PO SCH ×2 (08:54→20:31)
[2017-12-05] MEDS: NEOMYCIN/POLYMYXIN/BACITRACIN OINT 0.9 GM PACK TOP SCH ×2 (08:54→22:33)
[2017-12-05] MEDS: BUDESONIDE/FORMOTEROL 160-4.5 INHALER 6 GM INH SCH ×2 (08:55→20:32)
[2017-12-05] MEDS: amLODIPine 5 MG TABLET PO SCH (14:11)
[2017-12-05] MEDS: ATORVASTATIN 40 MG TABLET PO SCH (20:31)
[2017-12-06] MEDS: ALBUTEROL/IPRATROPIUM 3 ML NEB RESP TX SCH ×6 (01:39→19:51)
[2017-12-06] MEDS: cefTRIAXone 1,000 MG in SYRINGE 1 EACH IV SCH ×2 (03:55→13:59)
[2017-12-06] MEDS: ALBUMIN 25% 12.5 GM in PREMIX 1 EACH IV SCH ×3 (05:07→22:51)
[2017-12-06] MEDS: ACETAMINOPHEN 325 MG TABLET PO PRN (06:13)
[2017-12-06] MEDS: FUROSEMIDE 40 MG/4 ML VIAL IV SCH ×2 (08:37→16:50)
[2017-12-06] MEDS: INSULIN REGULAR 100 UNIT/ML SUBCUT SCH ×4 (08:37→21:56)
[2017-12-06] MEDS: ISOSORBIDE DINITRATE 20 MG TABLET PO SCH ×2 (08:38→21:55)
[2017-12-06] MEDS: CARVEDILOL 6.25 MG TABLET PO SCH ×2 (08:38→16:49)
[2017-12-06] MEDS: PANTOPRAZOLE 40 MG TABLET PO SCH (08:38)
[2017-12-06] MEDS: DOCUSATE SODIUM 100 MG CAPSULE PO SCH ×2 (08:38→21:56)
[2017-12-06] MEDS: BISACODYL 5 MG TABLET PO SCH (08:38)
[2017-12-06] MEDS: TAMSULOSIN 0.4 MG CAPSULE PO SCH ×2 (08:38→21:56)
[2017-12-06] MEDS: amLODIPine 5 MG TABLET PO SCH (08:38)
[2017-12-06] MEDS: NEOMYCIN/POLYMYXIN/BACITRACIN OINT 0.9 GM PACK TOP SCH ×2 (08:39→22:01)
[2017-12-06] MEDS: BUDESONIDE/FORMOTEROL 160-4.5 INHALER 6 GM INH SCH ×2 (08:39→22:01)
[2017-12-06] MEDS: FINASTERIDE 5 MG TABLET PO SCH (08:39)
[2017-12-06] MEDS: predniSONE 20 MG TABLET PO SCH (08:39)
[2017-12-06] MEDS ORDERED: LACTULOSE 20 GM/30 ML UDCUP PO PRN (10:05)
[2017-12-06] MEDS: ATORVASTATIN 40 MG TABLET PO SCH (21:55)
[2017-12-06] MEDS: APIXABAN 2.5 MG TABLET PO SCH (21:56)
[2017-12-06] MEDS ORDERED: ZALEPLON 5 MG CAPSULE PO PRN (22:22)
[2017-12-07] MEDS: ALBUTEROL/IPRATROPIUM 3 ML NEB RESP TX SCH ×7 (00:07→23:48)
[2017-12-07] MEDS: cefTRIAXone 1,000 MG in SYRINGE 1 EACH IV SCH ×2 (01:59→14:39)
[2017-12-07 04:49] LABS: Hematocrit 25.9 VOL% (42.0-52.0); Hemoglobin 8.9 GM/DL (14.0-18.0); Immature Granulocytes Absolute 0.06 #; Lymphocytes # 0.7 10*3/uL (1.4-4.0); Lymphocytes % 12.2 % (21.2-54.2); Mean Corpuscular HGB Conc 34.4 GM/DL (32-36); Mean Corpuscular Hemoglobin 31 PG (27-34); Mean Corpuscular Volume 89.9 FL (87-102); Mean Platelet Volume 9.3 FL (9.6-12.0); Monocytes # 0.7 10*3/uL (0.11-0.8); Monocytes % 11.2 % (1.7-12.7); Neutrophils # 4.4 10*3/uL (1.4-7.4); Neutrophils % 75.6 % (38.7-73.9); Platelet Count 147 T/CUMM (130-400); Red Blood Count 2.88 MC/CUMM (3.8-5.5); Red Cell Distribution Width 18.1 % (9.3-17.3); White Blood Count 5.9 T/CUMM (4-12)
[2017-12-07 05:10] LABS: Calcium 8.2 MG/DL (8.5-10.1); Potassium 4.3 MMOL/L (3.5-5.1)
[2017-12-07] MEDS: ALBUMIN 25% 12.5 GM in PREMIX 1 EACH IV SCH ×3 (06:05→21:44)
[2017-12-07] MEDS: INSULIN REGULAR 100 UNIT/ML SUBCUT SCH ×4 (08:51→21:42)
[2017-12-07] MEDS: BISACODYL 5 MG TABLET PO SCH (08:52)
[2017-12-07] MEDS: CARVEDILOL 6.25 MG TABLET PO SCH ×2 (08:52→17:12)
[2017-12-07] MEDS: APIXABAN 2.5 MG TABLET PO SCH (08:52)
[2017-12-07] MEDS: ASPIRIN CHEW 81 MG TABLET PO SCH (08:52)
[2017-12-07] MEDS: FUROSEMIDE 40 MG/4 ML VIAL IV SCH ×2 (08:52→17:11)
[2017-12-07] MEDS: predniSONE 20 MG TABLET PO SCH (08:52)
[2017-12-07] MEDS: TAMSULOSIN 0.4 MG CAPSULE PO SCH ×2 (08:52→21:41)
[2017-12-07] MEDS: BUDESONIDE/FORMOTEROL 160-4.5 INHALER 6 GM INH SCH ×2 (08:53→21:43)
[2017-12-07] MEDS: FINASTERIDE 5 MG TABLET PO SCH (08:53)
[2017-12-07] MEDS: PANTOPRAZOLE 40 MG TABLET PO SCH (08:53)
[2017-12-07] MEDS: ISOSORBIDE DINITRATE 20 MG TABLET PO SCH ×2 (08:53→21:41)
[2017-12-07] MEDS: amLODIPine 5 MG TABLET PO SCH (08:53)
[2017-12-07] MEDS: NEOMYCIN/POLYMYXIN/BACITRACIN OINT 0.9 GM PACK TOP SCH ×2 (08:53→21:53)
[2017-12-07] MEDS: DOCUSATE SODIUM 100 MG CAPSULE PO SCH ×2 (08:53→21:41)
[2017-12-07] MEDS: ATORVASTATIN 40 MG TABLET PO SCH (21:41)
[2017-12-08] MEDS: cefTRIAXone 1,000 MG in SYRINGE 1 EACH IV SCH (03:02)
[2017-12-08] MEDS: ALBUTEROL/IPRATROPIUM 3 ML NEB RESP TX SCH ×5 (03:41→18:53)
[2017-12-08] MEDS: ALBUMIN 25% 12.5 GM in PREMIX 1 EACH IV SCH ×3 (05:10→22:35)
[2017-12-08 05:16] LABS: Basophils % 0.1 % (0.0-0.8); Eosinophils % 0.1 % (0.00-10.9); Hematocrit 26.7 VOL% (42.0-52.0); Immature Granulocytes % 1.6 %; Immature Granulocytes Absolute 0.11 #; Lymphocytes # 0.9 10*3/uL (1.4-4.0); Lymphocytes % 12.6 % (21.2-54.2); Mean Corpuscular HGB Conc 33.7 GM/DL (32-36); Mean Corpuscular Hemoglobin 31 PG (27-34); Mean Corpuscular Volume 90.8 FL (87-102); Mean Platelet Volume 9.6 FL (9.6-12.0); Monocytes # 0.9 10*3/uL (0.11-0.8); NRBC # 0.02 10*3/uL; Neutrophils % 72.6 % (38.7-73.9); Platelet Count 145 T/CUMM (130-400); Red Blood Count 2.94 MC/CUMM (3.8-5.5); Red Cell Distribution Width 18.1 % (9.3-17.3); White Blood Count 6.9 T/CUMM (4-12)
[2017-12-08 05:48] LABS: Calcium 8.2 MG/DL (8.5-10.1); Osmolality,Calculated 298.1 MOS/KG (273-304); Potassium 4.1 MMOL/L (3.5-5.1)
[2017-12-08 07:36] LABS: Eosinophils 1 % (0-10); Lymphocytes 17 % (20-55); Segmented Neutrophils 71 % (50-85); Total Cells Counted 100
[2017-12-08 07:37] LABS: Hypochromasia 1+; Microcytosis 1+; Ovalocytes Few; Platelet Estimate Adequate
[2017-12-08] MEDS: FUROSEMIDE 40 MG/4 ML VIAL IV SCH ×3 (09:39→22:16)
[2017-12-08] MEDS ORDERED: ALBUTEROL 2.5 MG/3 ML NEB RESP TX PRN (10:14)
[2017-12-08] MEDS: BISACODYL 5 MG TABLET PO SCH (10:25)
[2017-12-08] MEDS: INSULIN REGULAR 100 UNIT/ML SUBCUT SCH ×3 (10:25→17:04)
[2017-12-08] MEDS: CHOLECALCIFEROL 1,000 UNIT TABLET PO SCH (10:26)
[2017-12-08] MEDS: amLODIPine 5 MG TABLET PO SCH (10:26)
[2017-12-08] MEDS: ACETAMINOPHEN 325 MG TABLET PO PRN (10:26)
[2017-12-08] MEDS: predniSONE 20 MG TABLET PO SCH (10:26)
[2017-12-08] MEDS: TAMSULOSIN 0.4 MG CAPSULE PO SCH ×2 (10:26→22:15)
[2017-12-08] MEDS: ISOSORBIDE DINITRATE 20 MG TABLET PO SCH ×2 (10:26→22:14)
[2017-12-08] MEDS: DOCUSATE SODIUM 100 MG CAPSULE PO SCH ×2 (10:30→22:14)
[2017-12-08] MEDS: PANTOPRAZOLE 40 MG TABLET PO SCH (10:30)
[2017-12-08] MEDS: FINASTERIDE 5 MG TABLET PO SCH (10:30)
[2017-12-08] MEDS: CARVEDILOL 6.25 MG TABLET PO SCH ×2 (10:31→18:24)
[2017-12-08] MEDS: NEOMYCIN/POLYMYXIN/BACITRACIN OINT 0.9 GM PACK TOP SCH ×2 (10:31→22:19)
[2017-12-08] MEDS: BUDESONIDE/FORMOTEROL 160-4.5 INHALER 6 GM INH SCH ×2 (10:32→22:19)
[2017-12-08] MEDS: metOLazone 5 MG TABLET PO SCH (12:51)
[2017-12-08] MEDS: methylPREDNISolone SOD SUC 40 MG/1 ML VIAL IV SCH ×2 (12:51→18:24)
[2017-12-08] MEDS: PIPERACILLIN/TAZOBACTAM 3,375 MG in SODIUM CHLORIDE 0.9% 100 ML IV SCH ×2 (12:51→18:24)
[2017-12-08] MEDS ORDERED: DOCUSATE SODIUM 100 MG CAPSULE PO SCH (21:00)
[2017-12-08] MEDS: ATORVASTATIN 40 MG TABLET PO SCH (22:14)
[2017-12-09] MEDS: ALBUTEROL/IPRATROPIUM 3 ML NEB RESP TX SCH ×7 (00:06→23:43)
[2017-12-09] MEDS: INSULIN REGULAR 100 UNIT/ML SUBCUT SCH ×4 (01:23→17:24)
[2017-12-09] MEDS: methylPREDNISolone SOD SUC 40 MG/1 ML VIAL IV SCH ×3 (02:19→17:51)
[2017-12-09] MEDS: PIPERACILLIN/TAZOBACTAM 3,375 MG in SODIUM CHLORIDE 0.9% 100 ML IV SCH ×3 (02:20→18:06)
[2017-12-09 05:08] LABS: Basophils % 0.1 % (0.0-0.8); Hematocrit 27.3 VOL% (42.0-52.0); Hemoglobin 8.8 GM/DL (14.0-18.0); Immature Granulocytes % 0.7 %; Immature Granulocytes Absolute 0.05 #; Lymphocytes # 0.5 10*3/uL (1.4-4.0); Lymphocytes % 6.5 % (21.2-54.2); Mean Corpuscular HGB Conc 32.2 GM/DL (32-36); Mean Corpuscular Hemoglobin 30 PG (27-34); Mean Corpuscular Volume 92.5 FL (87-102); Mean Platelet Volume 9.9 FL (9.6-12.0); Monocytes # 0.2 10*3/uL (0.11-0.8); Monocytes % 3.1 % (1.7-12.7); Neutrophils # 6.4 10*3/uL (1.4-7.4); Neutrophils % 89.6 % (38.7-73.9); Platelet Count 150 T/CUMM (130-400); Red Blood Count 2.95 MC/CUMM (3.8-5.5); Red Cell Distribution Width 18.1 % (9.3-17.3); White Blood Count 7.1 T/CUMM (4-12)
[2017-12-09 05:21] LABS: Calcium 8.3 MG/DL (8.5-10.1); Osmolality,Calculated 305.1 MOS/KG (273-304); Potassium 4.2 MMOL/L (3.5-5.1)
[2017-12-09] MEDS: ALBUMIN 25% 12.5 GM in PREMIX 1 EACH IV SCH ×3 (06:04→21:36)
[2017-12-09] MEDS: FUROSEMIDE 40 MG/4 ML VIAL IV SCH ×3 (08:40→21:32)
[2017-12-09] MEDS: TAMSULOSIN 0.4 MG CAPSULE PO SCH ×2 (08:40→21:32)
[2017-12-09] MEDS: CHOLECALCIFEROL 1,000 UNIT TABLET PO SCH (08:41)
[2017-12-09] MEDS: CARVEDILOL 6.25 MG TABLET PO SCH ×2 (08:41→16:24)
[2017-12-09] MEDS: ISOSORBIDE DINITRATE 20 MG TABLET PO SCH ×2 (08:41→21:32)
[2017-12-09] MEDS: PANTOPRAZOLE 40 MG TABLET PO SCH (08:41)
[2017-12-09] MEDS: amLODIPine 5 MG TABLET PO SCH (08:41)
[2017-12-09] MEDS: BISACODYL 5 MG TABLET PO SCH (08:41)
[2017-12-09] MEDS: DOCUSATE SODIUM 100 MG CAPSULE PO SCH ×2 (08:41→21:32)
[2017-12-09] MEDS: metOLazone 5 MG TABLET PO SCH (08:42)
[2017-12-09] MEDS: FINASTERIDE 5 MG TABLET PO SCH (08:42)
[2017-12-09] MEDS: ASPIRIN CHEW 81 MG TABLET PO SCH (08:42)
[2017-12-09] MEDS: NEOMYCIN/POLYMYXIN/BACITRACIN OINT 0.9 GM PACK TOP SCH ×2 (08:43→21:40)
[2017-12-09] MEDS: BUDESONIDE/FORMOTEROL 160-4.5 INHALER 6 GM INH SCH ×2 (08:43→21:40)
[2017-12-09] MEDS: ATORVASTATIN 40 MG TABLET PO SCH (21:32)
[2017-12-09] MEDS: INSULIN GLARGINE 100 UNIT/ML SUBCUT SCH (21:34)
[2017-12-10] MEDS: INSULIN REGULAR 100 UNIT/ML SUBCUT SCH ×4 (00:05→18:30)
[2017-12-10] MEDS: PIPERACILLIN/TAZOBACTAM 3,375 MG in SODIUM CHLORIDE 0.9% 100 ML IV SCH ×3 (02:03→18:31)
[2017-12-10] MEDS: methylPREDNISolone SOD SUC 40 MG/1 ML VIAL IV SCH ×3 (02:07→22:00)
[2017-12-10] MEDS: ALBUTEROL/IPRATROPIUM 3 ML NEB RESP TX SCH ×5 (03:08→20:11)
[2017-12-10 05:43] LABS: Hemoglobin 8.7 GM/DL (14.0-18.0); Immature Granulocytes % 0.9 %; Immature Granulocytes Absolute 0.08 #; Lymphocytes # 0.5 10*3/uL (1.4-4.0); Lymphocytes % 5.2 % (21.2-54.2); Mean Corpuscular HGB Conc 33.5 GM/DL (32-36); Mean Corpuscular Hemoglobin 31 PG (27-34); Mean Corpuscular Volume 91.9 FL (87-102); Mean Platelet Volume 9.6 FL (9.6-12.0); Monocytes # 0.6 10*3/uL (0.11-0.8); Monocytes % 6.5 % (1.7-12.7); Neutrophils # 7.8 10*3/uL (1.4-7.4); Neutrophils % 87.4 % (38.7-73.9); Platelet Count 140 T/CUMM (130-400); Red Blood Count 2.83 MC/CUMM (3.8-5.5); Red Cell Distribution Width 17.5 % (9.3-17.3); White Blood Count 8.9 T/CUMM (4-12)
[2017-12-10] MEDS: ALBUMIN 25% 12.5 GM in PREMIX 1 EACH IV SCH ×3 (05:57→23:30)
[2017-12-10 06:17] LABS: Calcium 8.4 MG/DL (8.5-10.1); Osmolality,Calculated 298.4 MOS/KG (273-304); Potassium 3.7 MMOL/L (3.5-5.1)
[2017-12-10] MEDS: ISOSORBIDE DINITRATE 20 MG TABLET PO SCH ×2 (08:30→22:01)
[2017-12-10] MEDS: metOLazone 5 MG TABLET PO SCH (08:31)
[2017-12-10] MEDS: TAMSULOSIN 0.4 MG CAPSULE PO SCH ×2 (08:31→22:01)
[2017-12-10] MEDS: CARVEDILOL 6.25 MG TABLET PO SCH ×2 (08:32→17:12)
[2017-12-10] MEDS: DOCUSATE SODIUM 100 MG CAPSULE PO SCH ×2 (08:32→22:00)
[2017-12-10] MEDS: FINASTERIDE 5 MG TABLET PO SCH (08:32)
[2017-12-10] MEDS: BISACODYL 5 MG TABLET PO SCH (08:32)
[2017-12-10] MEDS: CHOLECALCIFEROL 1,000 UNIT TABLET PO SCH (08:32)
[2017-12-10] MEDS: NEOMYCIN/POLYMYXIN/BACITRACIN OINT 0.9 GM PACK TOP SCH ×2 (08:33→22:01)
[2017-12-10] MEDS: FUROSEMIDE 40 MG/4 ML VIAL IV SCH ×3 (08:33→22:01)
[2017-12-10] MEDS: BUDESONIDE/FORMOTEROL 160-4.5 INHALER 6 GM INH SCH ×2 (08:41→22:00)
[2017-12-10] MEDS: PANTOPRAZOLE 40 MG TABLET PO SCH (08:41)
[2017-12-10] MEDS: INSULIN GLARGINE 100 UNIT/ML SUBCUT SCH (22:01)
[2017-12-10] MEDS: ATORVASTATIN 40 MG TABLET PO SCH (22:01)
[2017-12-11] MEDS: ALBUTEROL/IPRATROPIUM 3 ML NEB RESP TX SCH ×3 (01:25→07:10)
[2017-12-11] MEDS: INSULIN REGULAR 100 UNIT/ML SUBCUT SCH ×3 (02:58→12:35)
[2017-12-11] MEDS: PIPERACILLIN/TAZOBACTAM 3,375 MG in SODIUM CHLORIDE 0.9% 100 ML IV SCH ×2 (03:00→10:25)
[2017-12-11 05:58] LABS: Basophils % 0.1 % (0.0-0.8); Hematocrit 27.5 VOL% (42.0-52.0); Hemoglobin 9.6 GM/DL (14.0-18.0); Lymphocytes # 0.4 10*3/uL (1.4-4.0); Lymphocytes % 4.4 % (21.2-54.2); Mean Corpuscular HGB Conc 34.9 GM/DL (32-36); Mean Corpuscular Hemoglobin 31 PG (27-34); Mean Corpuscular Volume 88.1 FL (87-102); Mean Platelet Volume 9.7 FL (9.6-12.0); Monocytes # 0.6 10*3/uL (0.11-0.8); Monocytes % 6.4 % (1.7-12.7); Neutrophils # 8.4 10*3/uL (1.4-7.4); Neutrophils % 88.1 % (38.7-73.9); Platelet Count 152 T/CUMM (130-400); Red Blood Count 3.12 MC/CUMM (3.8-5.5); Red Cell Distribution Width 17.3 % (9.3-17.3); White Blood Count 9.6 T/CUMM (4-12)
[2017-12-11 06:26] LABS: Giant Platelets Few; Hypochromasia 1+; Lymphocytes 2 % (20-55); Microcytosis Slight; Ovalocytes Slight; Platelet Estimate Normal; Segmented Neutrophils 97 % (50-85); Total Cells Counted 100
[2017-12-11 06:34] LABS: Calcium 8.4 MG/DL (8.5-10.1); Osmolality,Calculated 297.9 MOS/KG (273-304); Potassium 3.6 MMOL/L (3.5-5.1)
[2017-12-11] MEDS: ALBUMIN 25% 12.5 GM in PREMIX 1 EACH IV SCH ×2 (06:50→15:14)
[2017-12-11] MEDS: FUROSEMIDE 40 MG/4 ML VIAL IV SCH (09:36)
[2017-12-11] MEDS: TAMSULOSIN 0.4 MG CAPSULE PO SCH (09:37)
[2017-12-11] MEDS: ASPIRIN CHEW 81 MG TABLET PO SCH (09:37)
[2017-12-11] MEDS: PANTOPRAZOLE 40 MG TABLET PO SCH (09:37)
[2017-12-11] MEDS: CHOLECALCIFEROL 1,000 UNIT TABLET PO SCH (09:37)
[2017-12-11] MEDS: metOLazone 5 MG TABLET PO SCH (09:37)
[2017-12-11] MEDS: DOCUSATE SODIUM 100 MG CAPSULE PO SCH (09:37)
[2017-12-11] MEDS: BISACODYL 5 MG TABLET PO SCH (09:37)
[2017-12-11] MEDS: FINASTERIDE 5 MG TABLET PO SCH (09:37)
[2017-12-11] MEDS: ISOSORBIDE DINITRATE 20 MG TABLET PO SCH (09:37)
[2017-12-11] MEDS: CARVEDILOL 6.25 MG TABLET PO SCH (09:37)
[2017-12-11] MEDS: BUDESONIDE/FORMOTEROL 160-4.5 INHALER 6 GM INH SCH (09:38)
[2017-12-11] MEDS: NEOMYCIN/POLYMYXIN/BACITRACIN OINT 0.9 GM PACK TOP SCH (09:38)
[2017-12-11] MEDS: ACETAMINOPHEN 325 MG TABLET PO PRN (11:36)
[2017-12-11] MEDS ORDERED: NITROGLYCERIN SL 0.4 MG TABLET SL PRN (11:39)
[2017-12-11 11:59] VITALS: BP 113/58
[2017-12-11] MEDS: methylPREDNISolone SOD SUC 40 MG/1 ML VIAL IV SCH (12:34)
[2017-12-12] MEDS ORDERED: FUROSEMIDE 40 MG/4 ML VIAL IV SCH (09:00)
== END 2017-12-11 14:48 | disposition swing bed (61) | DRG 291 ==
LOC: EDUNIT# → EDBD → N.ED 15:20 → N.EDINP 17:43 → SUATTDRO 17:43 → N.TELES 19:05
PROVIDERS: ADMIT Internal Medicine Infectious Disease; ATTEND Hospitalist

== ENCOUNTER 2018-03-12 11:28 | Inpatient (IN) ==
[2018-03-12] MEDS ORDERED: FUROSEMIDE 100 MG/10 ML VIAL IV STA (11:59)
[2018-03-12] MEDS ORDERED: ALBUTEROL/IPRATROPIUM 3 ML NEB RESP TX STA (11:59)
[2018-03-12 13:08] LABS: Apearance,Urine Slightly Hazy (Clear); Bacteria,Urine Few /HPF (Few); Bilirubin,Urine Negative (Negative); Blood, Urine Small mg/dL (Negative); Glucose,Urine (UA) Negative (Negative); Hyaline Casts,Urine 3 /LPF (0-3); Ketones,Urine Negative (Negative); Mucus,Urine Occasional /LPF (Occasional); Nitrite,Urine Negative (Negative); Protein,Urine 100 MG/DL; RBC,Urine 9 /HPF (0-4); Squamous Epithelial Cell,Urine Occasional /HPF (0-10); Urine Color Yellow (Yellow); WBC,Urine 60 /HPF (0-6)
[2018-03-12 13:43] LABS: Basophils % 0.5 % (0.0-0.8); Eosinophils # 0.1 10*3/uL (0.0-0.87); Eosinophils % 1.9 % (0.00-10.9); Hematocrit 50.4 VOL% (42.0-52.0); Hemoglobin 16.4 GM/DL (14.0-18.0); Immature Granulocytes % 0.3 %; Immature Granulocytes Absolute 0.01 #; Lymphocytes # 1.6 10*3/uL (1.4-4.0); Lymphocytes % 43.5 % (21.2-54.2); Mean Corpuscular HGB Conc 32.5 GM/DL (32-36); Mean Corpuscular Hemoglobin 29 PG (27-34); Mean Corpuscular Volume 88.3 FL (87-102); Mean Platelet Volume 10.1 FL (9.6-12.0); Monocytes # 0.4 10*3/uL (0.11-0.8); Monocytes % 11.7 % (1.7-12.7); Neutrophils # 1.6 10*3/uL (1.4-7.4); Neutrophils % 42.1 % (38.7-73.9); Platelet Count 204 T/CUMM (130-400); Red Blood Count 5.71 MC/CUMM (3.8-5.5); Red Cell Distribution Width 16.9 % (9.3-17.3); White Blood Count 3.8 T/CUMM (4-12)
[2018-03-12 13:54] LABS: INR 1.3; PT Patient Result 13.7 SECS
[2018-03-12 14:04] LABS: Albumin 3.4 G/DL (3.4-5.0); Bilirubin,Total 1.3 MG/DL (0.2-1.0); Osmolality,Calculated 289.8 MOS/KG (273-304); Potassium 3.6 MMOL/L (3.5-5.1); Total Protein 7.8 G/DL (6.4-8.3)
[2018-03-12 14:06] LABS: Troponin I Only 0.07 NG/ML (0.00-0.045)
[2018-03-12] MEDS ORDERED: LEVOFLOXACIN INJ 500 MG in PREMIX 1 EACH IV STA (14:41)
[2018-03-12] MEDS ORDERED: MAGNESIUM SULF RIDER 4 GM in PREMIX 1 EACH IV PRN (18:35)
[2018-03-12] MEDS ORDERED: ONDANSETRON 4 MG/2 ML VIAL IV PRN (18:35)
[2018-03-12] MEDS ORDERED: MORPHINE 4 MG/1 ML VIAL IV PRN (18:35)
[2018-03-12] MEDS ORDERED: MAGNESIUM SULF RIDER 2 GM in PREMIX 1 EACH IV PRN (18:35)
[2018-03-12] MEDS ORDERED: ACETAMINOPHEN 325 MG TABLET PO PRN (18:35)
[2018-03-12] MEDS ORDERED: ENOXAPARIN 40 MG/0.4 ML SYRINGE SUBCUT SCH (21:00)
[2018-03-12] MEDS ORDERED: ENOXAPARIN 30 MG/0.3 ML SYRINGE SUBCUT SCH (21:00)
[2018-03-12] MEDS: ASPIRIN CHEW 81 MG TABLET PO SCH (22:10)
[2018-03-12] MEDS: ATORVASTATIN 40 MG TABLET PO SCH (22:10)
[2018-03-12] MEDS: BUDESONIDE/FORMOTEROL 160-4.5 INHALER 6 GM INH SCH (22:12)
[2018-03-12] MEDS: ALBUTEROL/IPRATROPIUM 3 ML NEB RESP TX SCH (23:41)
[2018-03-13 01:05] LABS: Basophils % 0.6 % (0.0-0.8); Eosinophils # 0.1 10*3/uL (0.0-0.87); Eosinophils % 1.9 % (0.00-10.9); Hematocrit 40.4 VOL% (42.0-52.0); Hemoglobin 13.5 GM/DL (14.0-18.0); Immature Granulocytes % 0.6 %; Immature Granulocytes Absolute 0.03 #; Lymphocytes # 1.3 10*3/uL (1.4-4.0); Mean Corpuscular HGB Conc 33.4 GM/DL (32-36); Mean Corpuscular Hemoglobin 30 PG (27-34); Mean Corpuscular Volume 88.6 FL (87-102); Monocytes # 0.8 10*3/uL (0.11-0.8); Monocytes % 14.5 % (1.7-12.7); Neutrophils % 57.4 % (38.7-73.9); Platelet Count 174 T/CUMM (130-400); Red Blood Count 4.56 MC/CUMM (3.8-5.5); Red Cell Distribution Width 15.9 % (9.3-17.3); White Blood Count 5.2 T/CUMM (4-12)
[2018-03-13 01:29] LABS: Calcium 8.1 MG/DL (8.5-10.1); Osmolality,Calculated 293.6 MOS/KG (273-304); Potassium 3.7 MMOL/L (3.5-5.1); Risk Ratio 2.27
[2018-03-13] MEDS: ALBUTEROL/IPRATROPIUM 3 ML NEB RESP TX SCH ×6 (02:15→23:16)
[2018-03-13] MEDS: BUDESONIDE/FORMOTEROL 160-4.5 INHALER 6 GM INH SCH ×2 (09:34→21:04)
[2018-03-13] MEDS: FUROSEMIDE 40 MG/4 ML VIAL IV SCH ×2 (09:34→16:06)
[2018-03-13] MEDS: NEOMYCIN/POLYMYXIN/BACITRACIN OINT 28.4 GM TUBE TOP SCH (09:35)
[2018-03-13] MEDS: FINASTERIDE 5 MG TABLET PO SCH (09:35)
[2018-03-13] MEDS: metOLazone 5 MG TABLET PO SCH (09:35)
[2018-03-13] MEDS: CARVEDILOL 6.25 MG TABLET PO SCH ×2 (09:35→17:06)
[2018-03-13] MEDS: PANTOPRAZOLE 40 MG TABLET PO SCH (09:35)
[2018-03-13] MEDS: VANCOMYCIN INJ 1,000 MG in SODIUM CHLORIDE 0.9% 250 ML IV SCH (11:15)
[2018-03-13] MEDS: LEVOFLOXACIN INJ 250 MG in PREMIX 1 EACH IV SCH (13:25)
[2018-03-13] MEDS: ATORVASTATIN 40 MG TABLET PO SCH (21:04)
[2018-03-13] MEDS: APIXABAN 5 MG TABLET PO SCH (21:04)
[2018-03-14] MEDS: ALBUTEROL/IPRATROPIUM 3 ML NEB RESP TX SCH ×6 (00:21→23:41)
[2018-03-14 06:35] LABS: Basophils % 0.2 % (0.0-0.8); Eosinophils # 0.1 10*3/uL (0.0-0.87); Eosinophils % 2.5 % (0.00-10.9); Hematocrit 38.7 VOL% (42.0-52.0); Hemoglobin 12.9 GM/DL (14.0-18.0); Immature Granulocytes % 0.2 %; Immature Granulocytes Absolute 0.01 #; Lymphocytes # 1.4 10*3/uL (1.4-4.0); Lymphocytes % 27.1 % (21.2-54.2); Mean Corpuscular HGB Conc 33.3 GM/DL (32-36); Mean Corpuscular Hemoglobin 29 PG (27-34); Mean Platelet Volume 11.5 FL (9.6-12.0); Monocytes # 0.6 10*3/uL (0.11-0.8); Monocytes % 12.1 % (1.7-12.7); Neutrophils % 57.9 % (38.7-73.9); Platelet Count 148 T/CUMM (130-400); Red Cell Distribution Width 15.7 % (9.3-17.3); White Blood Count 5.1 T/CUMM (4-12)
[2018-03-14 07:05] LABS: Calcium 8.3 MG/DL (8.5-10.1); Osmolality,Calculated 279.7 MOS/KG (273-304)
[2018-03-14] MEDS: CARVEDILOL 6.25 MG TABLET PO SCH ×2 (09:14→16:59)
[2018-03-14] MEDS: TAMSULOSIN 0.4 MG CAPSULE PO SCH (09:17)
[2018-03-14] MEDS: APIXABAN 5 MG TABLET PO SCH ×2 (09:17→21:24)
[2018-03-14] MEDS: BUDESONIDE/FORMOTEROL 160-4.5 INHALER 6 GM INH SCH ×2 (09:17→21:25)
[2018-03-14] MEDS: NEOMYCIN/POLYMYXIN/BACITRACIN OINT 28.4 GM TUBE TOP SCH (09:17)
[2018-03-14] MEDS: metOLazone 5 MG TABLET PO SCH (09:17)
[2018-03-14] MEDS: FINASTERIDE 5 MG TABLET PO SCH (09:17)
[2018-03-14] MEDS: PANTOPRAZOLE 40 MG TABLET PO SCH (09:17)
[2018-03-14] MEDS: FUROSEMIDE 40 MG/4 ML VIAL IV SCH ×2 (09:26→17:10)
[2018-03-14] MEDS: VANCOMYCIN INJ 1,000 MG in SODIUM CHLORIDE 0.9% 250 ML IV SCH (11:55)
[2018-03-14] MEDS ORDERED: LIDOCAINE 2% TOP JELLY 5 ML TUBE TOP PRN (12:27)
[2018-03-14] MEDS: LEVOFLOXACIN INJ 250 MG in PREMIX 1 EACH IV SCH (15:04)
[2018-03-14] MEDS: ATORVASTATIN 40 MG TABLET PO SCH (21:24)
[2018-03-15] MEDS: ALBUTEROL/IPRATROPIUM 3 ML NEB RESP TX SCH ×6 (03:12→22:57)
[2018-03-15 08:02] LABS: Basophils % 0.4 % (0.0-0.8); Eosinophils # 0.2 10*3/uL (0.0-0.87); Eosinophils % 3.6 % (0.00-10.9); Hematocrit 34.9 VOL% (42.0-52.0); Hemoglobin 12.3 GM/DL (14.0-18.0); Immature Granulocytes % 0.2 %; Immature Granulocytes Absolute 0.01 #; Lymphocytes # 1.4 10*3/uL (1.4-4.0); Lymphocytes % 28.9 % (21.2-54.2); Mean Corpuscular HGB Conc 35.2 GM/DL (32-36); Mean Corpuscular Hemoglobin 29 PG (27-34); Mean Corpuscular Volume 83.1 FL (87-102); Mean Platelet Volume 10.8 FL (9.6-12.0); Monocytes # 0.6 10*3/uL (0.11-0.8); Monocytes % 11.7 % (1.7-12.7); Neutrophils # 2.6 10*3/uL (1.4-7.4); Neutrophils % 55.2 % (38.7-73.9); Platelet Count 174 T/CUMM (130-400); Red Cell Distribution Width 15.4 % (9.3-17.3); White Blood Count 4.8 T/CUMM (4-12)
[2018-03-15 08:25] LABS: Calcium 8.3 MG/DL (8.5-10.1); Osmolality,Calculated 284.7 MOS/KG (273-304); Potassium 3.1 MMOL/L (3.5-5.1)
[2018-03-15] MEDS: FUROSEMIDE 40 MG/4 ML VIAL IV SCH ×2 (09:09→15:30)
[2018-03-15] MEDS: APIXABAN 5 MG TABLET PO SCH ×2 (09:09→20:48)
[2018-03-15] MEDS: CARVEDILOL 6.25 MG TABLET PO SCH ×2 (09:10→16:41)
[2018-03-15] MEDS: TAMSULOSIN 0.4 MG CAPSULE PO SCH (09:10)
[2018-03-15] MEDS: ASPIRIN CHEW 81 MG TABLET PO SCH (09:10)
[2018-03-15] MEDS: PANTOPRAZOLE 40 MG TABLET PO SCH (09:10)
[2018-03-15] MEDS: POTASSIUM CHLORIDE 20 MEQ TABLET PO PRN ×4 (09:10→15:26)
[2018-03-15] MEDS: FINASTERIDE 5 MG TABLET PO SCH (09:10)
[2018-03-15] MEDS: BUDESONIDE/FORMOTEROL 160-4.5 INHALER 6 GM INH SCH ×2 (09:11→20:48)
[2018-03-15] MEDS: metOLazone 5 MG TABLET PO SCH (09:12)
[2018-03-15] MEDS ORDERED: methylPREDNISolone SOD SUC 125 MG/2 ML VIAL IV SCH (12:00)
[2018-03-15] MEDS: VANCOMYCIN INJ 1,000 MG in SODIUM CHLORIDE 0.9% 250 ML IV SCH (13:30)
[2018-03-15] MEDS: NEOMYCIN/POLYMYXIN/BACITRACIN OINT 28.4 GM TUBE TOP SCH (16:41)
[2018-03-15] MEDS: LEVOFLOXACIN INJ 250 MG in PREMIX 1 EACH IV SCH (18:08)
[2018-03-15] MEDS ORDERED: POTASSIUM CHLORIDE 20 MEQ TABLET PO ONE (18:27)
[2018-03-15] MEDS: ATORVASTATIN 40 MG TABLET PO SCH (20:48)
[2018-03-15] MEDS: methylPREDNISolone SOD SUC 40 MG/1 ML VIAL IV SCH (23:05)
[2018-03-16] MEDS: ALBUTEROL/IPRATROPIUM 3 ML NEB RESP TX SCH ×7 (00:24→23:10)
[2018-03-16 07:07] LABS: Hematocrit 40.5 VOL% (42.0-52.0); Hemoglobin 13.4 GM/DL (14.0-18.0); Immature Granulocytes % 0.4 %; Immature Granulocytes Absolute 0.02 #; Lymphocytes # 0.6 10*3/uL (1.4-4.0); Lymphocytes % 13.7 % (21.2-54.2); Mean Corpuscular HGB Conc 33.1 GM/DL (32-36); Mean Corpuscular Hemoglobin 29 PG (27-34); Mean Platelet Volume 10.1 FL (9.6-12.0); Monocytes # 0.3 10*3/uL (0.11-0.8); Monocytes % 5.4 % (1.7-12.7); Neutrophils # 3.7 10*3/uL (1.4-7.4); Neutrophils % 80.5 % (38.7-73.9); Platelet Count 189 T/CUMM (130-400); Red Blood Count 4.71 MC/CUMM (3.8-5.5); Red Cell Distribution Width 15.3 % (9.3-17.3); White Blood Count 4.6 T/CUMM (4-12)
[2018-03-16 07:45] LABS: Bilirubin,Total 1.5 MG/DL (0.2-1.0); Calcium 8.9 MG/DL (8.5-10.1); Osmolality,Calculated 285.8 MOS/KG (273-304); Potassium 4.3 MMOL/L (3.5-5.1); Total Protein 6.7 G/DL (6.4-8.3)
[2018-03-16] MEDS: FINASTERIDE 5 MG TABLET PO SCH (09:04)
[2018-03-16] MEDS: metOLazone 5 MG TABLET PO SCH (09:04)
[2018-03-16] MEDS: CARVEDILOL 6.25 MG TABLET PO SCH (09:04)
[2018-03-16] MEDS: APIXABAN 5 MG TABLET PO SCH ×2 (09:05→20:47)
[2018-03-16] MEDS: PANTOPRAZOLE 40 MG TABLET PO SCH (09:05)
[2018-03-16] MEDS: TAMSULOSIN 0.4 MG CAPSULE PO SCH (09:05)
[2018-03-16] MEDS: methylPREDNISolone SOD SUC 40 MG/1 ML VIAL IV SCH ×2 (09:05→20:46)
[2018-03-16] MEDS: BUDESONIDE/FORMOTEROL 160-4.5 INHALER 6 GM INH SCH ×2 (09:06→20:47)
[2018-03-16] MEDS: FUROSEMIDE 40 MG/4 ML VIAL IV SCH ×4 (09:06→20:46)
[2018-03-16] MEDS: VANCOMYCIN INJ 1,000 MG in SODIUM CHLORIDE 0.9% 250 ML IV SCH (11:56)
[2018-03-16] MEDS ORDERED: TUBERCULIN SKIN TEST 0.1 ML SYRINGE INTRADERM ONE (12:00)
[2018-03-16] MEDS: NEOMYCIN/POLYMYXIN/BACITRACIN OINT 28.4 GM TUBE TOP SCH (12:26)
[2018-03-16] MEDS: LEVOFLOXACIN INJ 250 MG in PREMIX 1 EACH IV SCH (17:12)
[2018-03-16] MEDS: NEBIVOLOL 10 MG TABLET PO SCH (20:47)
[2018-03-16] MEDS: ATORVASTATIN 40 MG TABLET PO SCH (20:47)
[2018-03-17] MEDS: ALBUTEROL/IPRATROPIUM 3 ML NEB RESP TX SCH ×4 (02:00→10:40)
[2018-03-17 07:47] LABS: Basophils % 0.1 % (0.0-0.8); Hematocrit 40.8 VOL% (42.0-52.0); Hemoglobin 13.6 GM/DL (14.0-18.0); Immature Granulocytes % 0.4 %; Immature Granulocytes Absolute 0.03 #; Lymphocytes # 0.6 10*3/uL (1.4-4.0); Lymphocytes % 7.7 % (21.2-54.2); Mean Corpuscular HGB Conc 33.3 GM/DL (32-36); Mean Corpuscular Hemoglobin 29 PG (27-34); Mean Corpuscular Volume 85.5 FL (87-102); Mean Platelet Volume 10.1 FL (9.6-12.0); Monocytes # 0.5 10*3/uL (0.11-0.8); Monocytes % 5.4 % (1.7-12.7); Neutrophils # 7.2 10*3/uL (1.4-7.4); Neutrophils % 86.4 % (38.7-73.9); Platelet Count 178 T/CUMM (130-400); Red Blood Count 4.77 MC/CUMM (3.8-5.5); Red Cell Distribution Width 15.4 % (9.3-17.3); White Blood Count 8.3 T/CUMM (4-12)
[2018-03-17 09:58] LABS: Albumin 2.7 G/DL (3.4-5.0); Bilirubin,Total 0.6 MG/DL (0.2-1.0); Calcium 8.4 MG/DL (8.5-10.1); Osmolality,Calculated 285.2 MOS/KG (273-304); Potassium 3.6 MMOL/L (3.5-5.1); Total Protein 6.6 G/DL (6.4-8.3)
[2018-03-17] MEDS: FINASTERIDE 5 MG TABLET PO SCH (10:29)
[2018-03-17] MEDS: NEBIVOLOL 10 MG TABLET PO SCH (10:29)
[2018-03-17] MEDS: metOLazone 5 MG TABLET PO SCH (10:29)
[2018-03-17] MEDS: APIXABAN 5 MG TABLET PO SCH (10:30)
[2018-03-17] MEDS: PANTOPRAZOLE 40 MG TABLET PO SCH (10:30)
[2018-03-17] MEDS: TAMSULOSIN 0.4 MG CAPSULE PO SCH (10:30)
[2018-03-17] MEDS: ASPIRIN CHEW 81 MG TABLET PO SCH (10:30)
[2018-03-17] MEDS: BUDESONIDE/FORMOTEROL 160-4.5 INHALER 6 GM INH SCH (10:31)
[2018-03-17] MEDS: FUROSEMIDE 40 MG/4 ML VIAL IV SCH ×2 (10:40→15:40)
[2018-03-17] MEDS: methylPREDNISolone SOD SUC 40 MG/1 ML VIAL IV SCH (10:44)
[2018-03-17] MEDS: NEOMYCIN/POLYMYXIN/BACITRACIN OINT 28.4 GM TUBE TOP SCH (10:47)
[2018-03-17] MEDS: VANCOMYCIN INJ 1,000 MG in SODIUM CHLORIDE 0.9% 250 ML IV SCH (13:26)
[2018-03-17 17:52] VITALS: BP 118/72
[2018-03-17] MEDS: LEVOFLOXACIN INJ 250 MG in PREMIX 1 EACH IV SCH (18:10)
== END 2018-03-17 19:07 | disposition home health service (06) | DRG 291 ==
LOC: EDBD → EDUNIT# → N.ED 11:28 → N.EDINP 14:42 → N.5E 17:50
PROVIDERS: ADMIT Internal Medicine; ATTEND Internal Medicine